=== PATIENT | male | born 1945 | race Caucasian/White ===

== ENCOUNTER 2016-09-24 12:18 | Inpatient (IN) | payer OTHER, MEDICARE ==
[~2016-09-24] VITALS: Ht 185.4 cm; Wt 168.1 kg
[2016-09-24] VITALS (7 sets, daily range): BP systolic 137–165; BP diastolic 51–75; PULSE 59–74; RESP 16–20; TEMP 97.9–99.2; O2SAT 95–97
[~2016-09-24 12:18] MED LIST: 1-ME1LIQ PO; ALAV10TA PO; ALLO100T PO; AMMO12CR10 TOP; APIX2.5 PO; ASPI81TA82 PO; ATOR80TA PO; B COTAB3 PO; BACI500O61 TOP; CHRO200T2 PO; ERGO50000 PO; FISH100020 PO; FURO1TAB93 PO; HYDR10TA23 PO; LIPO150C2 PO; METO25 PO; NOVOLOGP2 SQ; PROT40TA PO; SHOWER/TUB CHAIR LG; SUCR1 PO; TRAM50TA PO; WARF7.5 PO; [UNRECOGNIZED DRUG - CODE]
--- NOTE | 2016-09-24 12:33 | PD ---
HPI Chief Complaint: Skin Problem Time Seen by Provider: 12:32 Travel History International Travel<30 days: No Contact w/Intl Traveler<30days: No Traveled to known affect area: No History of Present Illness HPI 71-year-old male came to the emergency room with history of right leg redness, increasing swelling for past 1 week. He's been getting chills and fever. Patient is a known diabetic and is on an insulin pump. He has a diabetic wound that's healing poorly over his amputated great toe stump. The superintendent renting managing from [place] has been keeping an eye on it. Patient has been getting daily dressing changes at home. His is here with him and said that she's been trying to get him to come to the hospital for some time and finally today he agreed. Patient says at home his blood sugar today was 126. He has had infection go to that right knee away he has hardware that required to the replaced 3 times. The last one was in 2003. He didn't want that to happen and hence he is here today. In triage his vital signs were stable. Patient has history of DVT and did poorly on blood thinners including Xarelto and Eliquis and hence eventually he was taken off those medications and an IVC filter was inserted. This was in 2012. He is awake and answering questions appropriately currently. [facility] Past Medical History Narrative Medical List of his past medical, surgical, social and family history was reviewed from the nursing note. Hx Anticoagulant Therapy: Yes Arthritis: Yes Asthma: No Autoimmune Disease: No Anxiety: No Depression: No Heart Rhythm Problems: Yes Cancer: No Cardiovascular Problems: Yes (X3 STENTS) High Cholesterol: Yes Chest Pain: No Congestive Heart Failure: Yes COPD: No Cerebrovascular Accident: Yes Diabetes: Yes Diminished Hearing: No Deep Vein Thrombosis: Yes (04/2015) Endocrine: Yes Genitourinary: Yes Hypertension: Yes Immune Disorder: No Implanted Vascular Access Dvce: Yes Kidney Stones: Yes Musculoskeletal: Yes Neurologic: No Psychiatric: No Respiratory: Yes Radiation Therapy: Yes (FOR RING WORMS CHILD) Sleep Apnea: Yes Thyroid Disease: No Past Surgical History Abdominal Surgery: No Cardiac Surgery: Yes (STENTS X 3.) Ear Surgery: No Endocrine Surgery: No Eye Surgery: No Genitourinary Surgery: Yes (KIDNEY STONE REMOVED) Gynecologic Surgery: No Insulin Pump: Yes Joint Replacement: Yes (BILAT. KNEES) Oral Surgery: No Thoracic Surgery: No Other Surgery: Yes (KIDNEY STONE REMOVAL) Social History Alcohol Use: No Tobacco Use: No (QUIT 35 YEARS AGO) Substance Use: No Allergies-Medications (Allergen,Severity, Reaction): Coded Allergies: Carvedilol (Verified Allergy, Unknown, Hypotension, 09/24/16) Cipro (Verified Allergy, Unknown, Rash, 09/24/16) Uncoded Allergies: SURGICAL TAPE (Adverse Reaction, Intermediate, 04/23/15) BLISTERS Comments List of his allergies reviewed from the nursing note. Reported Meds & Prescriptions Reported Meds & Active Scripts Active Reported Omeprazole 40 Mg Cap 40 Mg PO DAILY Lisinopril 40 Mg Tab 40 Mg PO BID Furosemide 40 Mg Tab 40 Mg PO DAILY Fish Oil (Combined [place]-3 Fatty Acids) 1,000 Mg Cap D 1000 (Cholecalciferol) 1,000 Unit Chew Angela-Hex 2 (Chlorhexidine Gluconate) 2 % Mikaela Carvedilol 12.5 Mg Tab 12.5 Mg PO BID Biolle Gel Tears (Carboxymethylcellulose Sodium) 1 % Gel Iodoflex Topical (Cadexomer Iodine) 0.9% Pad 1 Pad TOPICAL DAILY Bacitracin Topical 500 Unit/Gm Oint 1 Applic TOPICAL DAILY Atorvastatin (Atorvastatin Calcium) 80 Mg Tab 80 Mg PO HS Amlodipine (Amlodipine Besylate) 10 Mg Tab 10 Mg PO DAILY Allopurinol 300 Mg Tab 300 Mg PO DAILY Ventolin Hfa 18 GM Inh (Albuterol Sulfate) 90 Mcg/Act Aer 1 Puff INH Q4H PRN Narrative Medication List of his home medications reviewed from the nursing note. Review of Systems Except as stated in HPI: all other systems reviewed are Neg Physical Exam Narrative GENERAL: Awake, alert, morbidly obese, mild distress SKIN: Warm and dry. Flushed. HEAD: Atraumatic. Normocephalic. EYES: Pupils equal and round. No scleral icterus. No injection or drainage. ENT: No nasal bleeding or discharge. Mucous membranes pink and moist. NECK: Trachea midline. No JVD. CARDIOVASCULAR: Regular rate and rhythm. No murmur appreciated. RESPIRATORY: No accessory muscle use. Clear to auscultation. Breath sounds equal bilaterally. GASTROINTESTINAL: Abdomen soft, non-tender, nondistended. Hepatic and splenic margins not palpable. MUSCULOSKELETAL: Right leg is swollen and warm with erythema coming from the dorsum of the foot all the way up to the mid leg. The leg is swollen and warm to touch. The foot with the amputated great toe did not look good over the wound area with there are 2 open ulcers. Skin is blanched. No foul-smelling drainage. No clubbing. No cyanosis. No edema. NEUROLOGICAL: Awake and alert. No obvious cranial nerve deficits. Motor grossly within normal limits. Normal speech. PSYCHIATRIC: Appropriate mood and affect; insight and judgment normal. Data Data Last Documented VS Vital Signs Date Time Temp Pulse Resp B/P Pulse Ox O2 Delivery O2 Flow Rate FiO2 09/24/16 14:18 74 16 146/73 97 Room Air 09/24/16 12:26 97.9 Orders Complete Blood Count With Diff (09/24/16 12:48) Comprehensive Metabolic Panel (09/24/16 12:48) Lactic Acid Sepsis Protocol (09/24/16 12:48) Urinalysis - C+S If Indicated (09/24/16 12:48) Blood Culture (09/24/16 12:48) Chest, Single Ap (09/24/16 12:48) Blood Glucose (09/24/16 12:48) Ecg Monitoring (09/24/16 12:48) Iv Access Insert/Monitor (09/24/16 12:48) Oximetry (09/24/16 12:48) Oxygen Administration (09/24/16 12:48) Piperacil-Tazo 4.5 Gm Premix (Zosyn 4.5 (09/24/16 12:48) Vancomycin Inj (Vancomycin Inj) (09/24/16 12:48) Sodium Chlor 0.9% 1000 Ml Inj (Ns 1000 M (09/24/16 12:48) Sodium Chlor 0.9% 1000 Ml Inj (Ns 1000 M (09/24/16 12:48) Sodium Chlor 0.9% 1000 Ml Inj (Ns 1000 M (09/24/16 12:48) Sodium Chlor 0.9% 1000 Ml Inj (Ns 1000 M (09/24/16 12:48) Foot, Complete (Mdg1uml) (09/24/16 ) Admit Order (Ed Use Only) (09/24/16 14:59) Labs Laboratory Tests Test 09/24/16 09/24/16 14:08 15:00 White Blood Count 9.0 TH/MM3 Red Blood Count 4.03 MIL/MM3 Hemoglobin 10.7 GM/DL Hematocrit 32.8 % Mean Corpuscular Volume 81.3 FL Mean Corpuscular Hemoglobin 26.5 PG Mean Corpuscular Hemoglobin 32.7 % Concent Red Cell Distribution Width 15.5 % Platelet Count 186 TH/MM3 Mean Platelet Volume 9.5 FL Neutrophils (%) (Auto) 69.4 % Lymphocytes (%) (Auto) 18.6 % Monocytes (%) (Auto) 8.9 % Eosinophils (%) (Auto) 2.9 % Basophils (%) (Auto) 0.2 % Neutrophils # (Auto) 6.2 TH/MM3 Lymphocytes # (Auto) 1.7 TH/MM3 Monocytes # (Auto) 0.8 TH/MM3 Eosinophils # (Auto) 0.3 TH/MM3 Basophils # (Auto) 0.0 TH/MM3 CBC Comment DIFF FINAL Differential Comment Sodium Level 141 MEQ/L Potassium Level 4.2 MEQ/L Chloride Level 107 MEQ/L Carbon Dioxide Level 23.5 MEQ/L Anion Gap 11 MEQ/L Blood Urea Nitrogen 61 MG/DL Creatinine 2.40 MG/DL Estimat Glomerular Filtration 27 ML/MIN Rate Random Glucose 253 MG/DL Lactic Acid Level 1.3 mmol/L Calcium Level 8.3 MG/DL Total Bilirubin 0.4 MG/DL Aspartate Amino Transf 159 U/L (AST/SGOT) Alanine Aminotransferase 246 U/L (ALT/SGPT) Alkaline Phosphatase 334 U/L Total Protein 7.1 GM/DL Albumin 2.4 GM/DL Urine Color YELLOW Urine Turbidity CL Urine pH 5.5 Urine Specific Holliday 1.017 Urine Protein 100 mg/dL Urine Glucose (UA) NEG mg/dL Urine Ketones NEG mg/dL Urine Occult Blood NEG Urine Nitrite NEG Urine Bilirubin NEG Urine Leukocyte Esterase NEG Urine RBC 0-3 /hpf Urine WBC 0-2 /hpf Urine Squamous Epithelial 0-5 /hpf Cells Urine Bacteria NONE /hpf Urine Hyaline Casts 0-2 /lpf Urine Fine Granular Casts 0-2 /lpf Microscopic Urinalysis Comment CATH-CULT NOT IND MDM Medical Decision Making Medical Screen Exam Complete: Yes Emergency Medical Condition: Yes Medical Record Reviewed: Yes Differential Diagnosis Osteomyelitis, cellulitis, DVT Narrative Course 1:23 PM awaiting for the blood test results. X-ray of the foot does not show any obvious osteomyelitis. 1:36 PM patient has an IVC filter and if there is a DVT he is safe from that standpoint. Awaiting for the blood test results. X-ray of the foot did not show any osteomyelitis. Patient cannot have an MRI since he has a defibrillator. It seems like he would require admission for IV antibiotics anyways. I have ordered IV Zosyn and vancomycin for him. 2:48 PM blood test results are back. CBC is within relatively acceptable limits. Liver functions are elevated and renal function is far worse than before. Patient is getting IV fluids as well. I have put a call out for the hospitalist and admitted and discussed the case. In my opinion patient should be admitted for more antibiotic and IV hydration and podiatry to be consulted. Procedures EKG Prior to Arrival: No Diagnosis Primary Impression: Cellulitis Qualified Code: L03.115 - Cellulitis of right lower extremity Additional Impressions: Diabetic foot Renal failure Admitting Information Admitting Physician Requests: Admit Ana Mcintyre MD Sep 24, 2016 12:33
[2016-09-24] MEDS ORDERED: PIPERACIL-TAZO 4.5 GM PREMIX 100 ML IV STA (12:48)
[2016-09-24] MEDS ORDERED: VANCOMYCIN INJ 1,000 MG in SODIUM CHLOR 0.9% 250 ML INJ 250 ML IV STA (12:48)
[2016-09-24] MEDS ORDERED: SODIUM CHLOR 0.9% 1000 ML INJ 1,000 ML IV ONE ×3 (12:48)
[2016-09-24] MEDS ORDERED: SODIUM CHLOR 0.9% 1000 ML INJ 900 ML IV ONE (12:48)
[2016-09-24] MEDS ORDERED: VENTAER INH (13:06)
[2016-09-24] MEDS ORDERED: FURO40TA PO (13:06)
[2016-09-24] MEDS ORDERED: [UNRECOGNIZED DRUG - CODE] (13:06)
[2016-09-24] MEDS ORDERED: ALLO300T2 PO (13:06)
[2016-09-24] MEDS ORDERED: LISI40TA PO (13:06)
[2016-09-24] MEDS ORDERED: FISH1000 (13:06)
[2016-09-24] MEDS ORDERED: BACI500O9 TOPICAL (13:06)
[2016-09-24] MEDS ORDERED: AMLO10TA2 PO (13:06)
[2016-09-24] MEDS ORDERED: CARV12.52 PO (13:06)
[2016-09-24] MEDS ORDERED: [UNRECOGNIZED DRUG - SUPPLY] TOPICAL (13:06)
[2016-09-24] MEDS ORDERED: ATOR1TAB18 PO (13:06)
[2016-09-24] MEDS ORDERED: D 10CHW (13:06)
[2016-09-24] MEDS ORDERED: [UNRECOGNIZED DRUG - CODE] (13:06)
[2016-09-24] MEDS ORDERED: OMEP40CA2 PO (13:06)
--- NOTE | 2016-09-24 13:10 | RADHPO ---
EXAM DATE/TIME: 09/24/2016 12:54 [facility] COMPARISON: CHEST SINGLE AP, May 09, 2015, 15:28. INDICATIONS : Cough and chills; possible foot infection. MEDICAL HISTORY : Hypertension. Diabetes mellitus type II. SURGICAL HISTORY : Stents. Deviated septum. ENCOUNTER: Initial ACUITY: 1 day PAIN SCORE: 0/10 LOCATION: Bilateral chest FINDINGS: A single view of the chest demonstrates the lungs to be symmetrically aerated without evidence of mas s, infiltrate or effusion. The cardiomediastinal contours are unremarkable. Osseous structures are intact. CONCLUSION: Normal examination. José Antonio Wooten MD on September 24, 2016 at 13:09 Board Certified Radiologist. This report was verified electronically.
--- NOTE | 2016-09-24 13:12 | RADHPO ---
EXAM DATE/TIME: 09/24/2016 12:59 [facility] COMPARISON: No previous studies available for comparison. INDICATIONS : Right foot infection. MEDICAL HISTORY : Diabetes mellitus type II. 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 ENCOUNTER: Initial ACUITY: 1 week PAIN SCORE: 6/10 LOCATION: Right foot. FINDINGS: Three view examination of the right foot demonstrates the patient is status post first digit amputati on at the level of the first MTP joint. Remaining bones appear intact. Areas of bone destruction are not seen. There is soft tissue swelling throughout the foot. There is spurring seen at the dorsal mid foot and at the medial proximal navicular bone.. Calcaneal spurs are seen at the plantar aponeurosis attachment site and the Achilles attachment sites. CONCLUSION: Chronic bony change as described above. There is soft tissue swelling of the foot. José Antonio Wooten MD on September 24, 2016 at 13:09 Board Certified Radiologist. This report was verified electronically.
[2016-09-24 14:27] LABS: AUTOMATED NEUTROPHIL # 6.2 TH/MM3 (1.8-7.7); BASOPHIL % 0.2 % (0.0-2.0); EOSINOPHIL # 0.3 TH/MM3 (0-0.4); EOSINOPHIL % 2.9 % (0.0-4.0); HEMATOCRIT 32.8 % (39.0-51.0); HEMO FLAGS DIFF FINAL; LYMPH % 18.6 % (9.0-44.0); LYMPHOCYTE # 1.7 TH/MM3 (1.0-4.8); MEAN CELL VOLUME 81.3 FL (80.0-100.0); MEAN CORPUSCULAR HEMOGLOBIN 26.5 PG (27.0-34.0); MEAN CORPUSCULAR HGB CONC 32.7 % (32.0-36.0); MONO % 8.9 % (0.0-8.0); NEUT % 69.4 % (16.0-70.0); PLATELET COUNT 186 TH/MM3 (150-450); RED BLOOD COUNT 4.03 MIL/MM3 (4.50-5.90); RED CELL DISTRIBUTION WIDTH 15.5 % (11.6-17.2)
[2016-09-24 14:35] LABS: CHLORIDE 107 MEQ/L (98-107); POTASSIUM 4.2 MEQ/L (3.5-5.1); SODIUM (NA) 141 MEQ/L (136-145)
[2016-09-24 14:39] LABS: ANION GAP 11 MEQ/L (5-15); BICARBONATE 23.5 MEQ/L (21.0-32.0); BLOOD UREA NITROGEN 61 MG/DL (7-18)
[2016-09-24 14:42] LABS: ALT (GPT) 246 U/L (12-78); AST (GOT) 159 U/L (15-37); GLOMERULAR FILTRATION RATE 27 ML/MIN (>89)
[2016-09-24 14:44] LABS: TOTAL BILIRUBIN ADULT 0.4 MG/DL (0.2-1.0)
[2016-09-24 14:45] LABS: ALKALINE PHOSPHATASE 334 U/L (45-117)
--- NOTE | 2016-09-24 15:01 | HHI.HP ---
HPI [facility] Primary [facility] Physician [facility] Admission Diagnosis Diagnoses: (1) Diabetic infection of right foot (2) Type 2 diabetes mellitus with right diabetic foot infection (3) Cellulitis (4) Acute renal failure superimposed on stage 3 chronic kidney disease Chief Complaint: right foot infection Travel History International Travel<30 Days: No Contact w/Intl Traveler <30 Da: No Traveled to Known Affected Are: No History of Present Illness 71 year-old male with history of diabetes type 2 insulin-dependent presented to the ED for evaluation of worsening RLE redness/erythema and increasing swelling over the past 7 days. patient is s/p amputated great right toe with poorly healed stump for which he is being followed by OR podiatry. He is not currently on any antibiotic and gets daily dressing change at home by his . Patient states he had subjective fever at home for which he took some Tylenol this AM. Currently denies any chest pain or shortness of breath, there is no GI bleed. Past Family Social History Past Medical History DVT diagnosed almost 1 month ago on xarelto CHF Coronary artery disease, with 3 stents placed in 2006 Hyperlipidemia Hypertension Diabetes mellitus on insulin pump Peptic ulcer disease Past Surgical History Surgical history Cardiac stents X3 to thin in 2006 Kidney stone removal Bilateral knee surgery Allergies: Coded Allergies: Carvedilol (Verified Allergy, Unknown, Hypotension, 09/24/16) Cipro (Verified Allergy, Unknown, Rash, 09/24/16) Uncoded Allergies: SURGICAL TAPE (Adverse Reaction, Intermediate, 04/23/15) BLISTERS Family History Family history positive for diabetes2 Social History He denies tobacco, alcohol or illicit drug intake Physical Exam Vital Signs Vital Signs Date Time Temp Pulse Resp B/P Pulse Ox O2 Delivery O2 Flow Rate FiO2 09/24/16 12:26 97.9 63 16 137/69 95 Physical Exam GENERAL: This is a well-nourished, well-developed patient, in no apparent distress. SKIN: No rashes, ecchymoses or lesions. Cool and dry. HEAD: Atraumatic. Normocephalic. No temporal or scalp tenderness. EYES: Pupils equal round and reactive. Extraocular motions intact. No scleral icterus. No injection or drainage. ENT: Nose without bleeding, purulent drainage or septal hematoma. Throat without erythema, tonsillar hypertrophy or exudate. Uvula midline. Airway patent. NECK: Trachea midline. No JVD or lymphadenopathy. Supple, nontender, no meningeal signs. CARDIOVASCULAR: Regular rate and rhythm without murmurs, gallops, or rubs. RESPIRATORY: Clear to auscultation. Breath sounds equal bilaterally. No wheezes , rales, or rhonchi. GASTROINTESTINAL: Abdomen soft, non-tender, nondistended. No hepato-splenomegaly , or palpable masses. No guarding. MUSCULOSKELETAL: Extremities without clubbing, cyanosis, or edema.Right leg is swollen and warm with erythema coming from the dorsum of the foot all the way up to the mid leg. The leg is swollen and warm to touch. The foot with the amputated great toe with some open ulcers NEUROLOGICAL: Awake and alert. Cranial nerves II through XII intact. Motor and sensory grossly within normal limits. Five out of 5 muscle strength in all muscle groups. Normal speech. Laboratory Laboratory Tests Test 09/24/16 14:08 White Blood Count 9.0 Red Blood Count 4.03 Hemoglobin 10.7 Hematocrit 32.8 Mean Corpuscular Volume 81.3 Mean Corpuscular Hemoglobin 26.5 Mean Corpuscular Hemoglobin 32.7 Concent Red Cell Distribution Width 15.5 Platelet Count 186 Mean Platelet Volume 9.5 Neutrophils (%) (Auto) 69.4 Lymphocytes (%) (Auto) 18.6 Monocytes (%) (Auto) 8.9 Eosinophils (%) (Auto) 2.9 Basophils (%) (Auto) 0.2 Neutrophils # (Auto) 6.2 Lymphocytes # (Auto) 1.7 Monocytes # (Auto) 0.8 Eosinophils # (Auto) 0.3 Basophils # (Auto) 0.0 CBC Comment DIFF FINAL Differential Comment Sodium Level 141 Potassium Level 4.2 Chloride Level 107 Carbon Dioxide Level 23.5 Anion Gap 11 Blood Urea Nitrogen 61 Creatinine 2.40 Estimat Glomerular Filtration 27 Rate Random Glucose 253 Lactic Acid Level 1.3 Calcium Level 8.3 Total Bilirubin 0.4 Aspartate Amino Transf 159 (AST/SGOT) Alanine Aminotransferase 246 (ALT/SGPT) Alkaline Phosphatase 334 Total Protein 7.1 Albumin 2.4 Date/Time Procedure Status Source Growth 09/24/16 14:18 Aerobic Blood Culture Received Blood Peripheral Pending 09/24/16 14:18 Anaerobic Blood Culture Received Blood Peripheral Pending Result Diagram: 09/24/16 1408 09/24/16 1408 Assessment and Plan Problem List: (1) Diabetic infection of right foot ICD Code: E11.69 Status: Acute (2) Type 2 diabetes mellitus with right diabetic foot infection ICD Code: E11.628 Status: Acute (3) Cellulitis ICD Code: L03.90 Status: Acute (4) Acute renal failure superimposed on stage 3 chronic kidney disease ICD Code: N17.9 Status: Acute Assessment and Plan 71-year-old man with Diabetic infection of right foot: s/p Zosyn and Vancomycin IV x 1 in ED; Continue with Vancomycin and start Rocephin IV daily 09/25/16 pending culture reports.Will consult Podiatry for assistance. Wound dressing per protocol. Consider ID consultation if no improvement Right foot cellulitis: Start Rocephin and Vancomycin IV Type 2 diabetes mellitus with right diabetic foot infection: Patient is on insulin pump with basal rate of about 4.5 units per hour. Will add low-dose insulin sliding scale for additional coverage. Treatment of DFI as above Acute kidney injury on CK D3: Start Gentle IVF hydration, monitor BUN and creatinine and avoid all nephrotoxic drugs. Hold SLOANE inhibitor Hypertension: Resume Norvasc and Coreg Prior history of right DVT: Status post IVC filter placement CAD: Resume Coreg Transaminitis: Check hepatitis profile monitor LFTs Code Status Full code Discussed Condition With Patient, , ED physician Physician Certification 2 Midnight Certification Type: Admission for Inpatient Services Order for Inpatient Services The services are ordered in accordance with Medicare regulations or non- Medicare payer requirements, as applicable. In the case of services not specified as inpatient-only, they are appropriately provided as inpatient services in accordance with the 2-midnight benchmark. Estimated LOS (days): 2 days is the estimated time the patient will need to remain in the hospital, assuming treatment plan goals are met and no additional complications. Post-Hospital Plan: Not yet determined Problem Qualifiers (1) Cellulitis: Qualified Code: L03.115 - Cellulitis of right lower extremity Deon Knapp MD Sep 24, 2016 15:01 specified as inpatient-only, they are appropriately provided as inpatient services in accordance with the 2-midnight benchmark. Estimated LOS (days): 2 days is the estimated time the patient will need to remain in the hospital, assuming treatment plan goals are met and no additional complications. Post-Hospital Plan: Not yet determined Problem Qualifiers (1) Cellulitis: Qualified Code: L03.115 - Cellulitis of right lower extremity Deon Knapp MD Sep 24, 2016 15:01
[2016-09-24 15:23] LABS: BLOOD, URINE NEG (NEG); GLUCOSE,URINE NEG (NEG); KETONE, URINE NEG (NEG); NITRITE,URINE NEG (NEG); PH, URINE 5.5 (5.0-8.5)
[2016-09-24] MEDS ORDERED: TEMAZEPAM 15 MG CAP PO PRN (15:30)
[2016-09-24] MEDS ORDERED: hydrALAZINE HCL 25 MG TAB PO PRN (15:30)
[2016-09-24] MEDS ORDERED: NALOXONE HCL 0.4 MG/ML AMP IV PRN (15:30)
[2016-09-24] MEDS ORDERED: DEXTROSE 50% IN WATER 50 ML VIAL(D50) IV PUSH PRN (15:30)
[2016-09-24] MEDS ORDERED: ONDANSETRON HCL 4 MG/2 ML VIAL IVP PRN (15:30)
[2016-09-24] MEDS ORDERED: ACETAMINOPHEN 325 MG TAB PO PRN ×2 (15:30)
[2016-09-24] MEDS ORDERED: GLUCAGON 1 MG/ML VIAL OTHER PRN (15:30)
[2016-09-24] MEDS ORDERED: DOCUSATE SODIUM 50 MG/SENNA 8.6 MG TAB PO PRN (15:30)
[2016-09-24 15:35] LABS: HYALINE CAST, URINE 0-2 /lpf (RARE); RBC, URINE 0-3 /hpf (0-3); SQUAMOUS EPITHELIAL CELL URINE 0-5 /hpf (0-5); URINE COLOR YELLOW (YELLW/STRAW); WBC, URINE 0-2 /hpf (0-5)
[2016-09-24 15:36] LABS: COMMENT (UR) CATH-CULT NOT IND; CULTURE IF INDICATED CATH CULTURE NOT IND
[2016-09-24] MEDS ORDERED: Vancomycin Consult Pharmacy 1 EA OTHER SCH (16:00)
[2016-09-24] MEDS: INSULIN ASPART SUPPLEMENTAL SCALE SQ SCH ×2 (16:00→21:00)
[2016-09-24] MEDS ORDERED: CADEXOMER IODINE 0.9% TOPICAL SCH (16:15)
[2016-09-24] MEDS: ACETAMINOPHEN/HYDROcodone 325 MG/5 MG TAB PO PRN ×2 (16:41→21:29)
[2016-09-24] MEDS: SODIUM CHLORIDE 0.9% FLUSH 5 ML FLUSH FLUSH SCH (21:26)
[2016-09-24] MEDS: SODIUM CHLOR 0.9% 1000 ML INJ 1,000 ML IV SCH (21:26)
[2016-09-24] MEDS: ATORVASTATIN 40 MG TAB PO SCH (21:28)
[2016-09-24] MEDS: CARVEDILOL 12.5 MG TAB PO SCH (21:29)
[2016-09-25] VITALS: BP 128/72; PULSE 76; RESP 18; TEMP 98.2; O2SAT 96
[2016-09-25] MEDS: SODIUM CHLOR 0.9% 1000 ML INJ 1,000 ML IV SCH ×2 (05:45→20:41)
[2016-09-25] MEDS: SODIUM CHLORIDE 0.9% FLUSH 5 ML FLUSH FLUSH PRN (05:45)
[2016-09-25] MEDS ORDERED: VANCOMYCIN INJ 1,800 MG in SODIUM CHLORID 0.9% 500 ML INJ 500 ML IV SCH (06:00)
[2016-09-25 06:32] LABS: AUTOMATED NEUTROPHIL # 4.4 TH/MM3 (1.8-7.7); BASOPHIL % 0.3 % (0.0-2.0); EOSINOPHIL # 0.3 TH/MM3 (0-0.4); EOSINOPHIL % 3.8 % (0.0-4.0); HEMATOCRIT 30.2 % (39.0-51.0); HEMO FLAGS DIFF FINAL; LYMPH % 26.8 % (9.0-44.0); LYMPHOCYTE # 1.9 TH/MM3 (1.0-4.8); MEAN CELL VOLUME 80.3 FL (80.0-100.0); MEAN CORPUSCULAR HEMOGLOBIN 25.6 PG (27.0-34.0); MEAN CORPUSCULAR HGB CONC 31.9 % (32.0-36.0); NEUT % 60.1 % (16.0-70.0); PLATELET COUNT 156 TH/MM3 (150-450); RED BLOOD COUNT 3.76 MIL/MM3 (4.50-5.90); RED CELL DISTRIBUTION WIDTH 15.2 % (11.6-17.2); WHITE BLOOD COUNT 7.2 TH/MM3 (4.0-11.0)
[2016-09-25] MEDS: INSULIN ASPART SUPPLEMENTAL SCALE SQ SCH ×4 (06:50→20:48)
[2016-09-25 07:02] LABS: ALKALINE PHOSPHATASE 304 U/L (45-117); ALT (GPT) 214 U/L (12-78); ANION GAP 10 MEQ/L (5-15); AST (GOT) 144 U/L (15-37); BICARBONATE 19.8 MEQ/L (21.0-32.0); BLOOD UREA NITROGEN 53 MG/DL (7-18); CHLORIDE 115 MEQ/L (98-107); GLOMERULAR FILTRATION RATE 31 ML/MIN (>89); POTASSIUM 4.3 MEQ/L (3.5-5.1); SODIUM (NA) 145 MEQ/L (136-145); TOTAL BILIRUBIN ADULT 0.4 MG/DL (0.2-1.0)
[2016-09-25 08:00] VITALS: BP 127/78; PULSE 71; RESP 18; TEMP 97.9; O2SAT 97
[2016-09-25] MEDS: CARVEDILOL 12.5 MG TAB PO SCH ×2 (08:22→20:44)
[2016-09-25] MEDS: FUROSEMIDE 40 MG TAB PO SCH (08:22)
[2016-09-25] MEDS: ACETAMINOPHEN/HYDROcodone 325 MG/5 MG TAB PO PRN ×3 (08:22→20:43)
[2016-09-25] MEDS: cefTRIAXone INJ 1,000 MG in SODIUM CHLORIDE 0.9% INJ 100 ML IV SCH (08:23)
[2016-09-25] MEDS: ALLOPURINOL 300 MG TAB PO SCH (08:23)
[2016-09-25] MEDS: SODIUM CHLORIDE 0.9% FLUSH 5 ML FLUSH FLUSH SCH ×2 (08:23→20:41)
--- NOTE | 2016-09-25 08:55 | HHI.PR ---
Subjective Remarks Follow-up Diabetic foot infection/cellulitis 09/25/16-patient seen and examined, currently afebrile, denies any right foot pressure and states the pain has improved since admission. No acute event overnight. Objective Vitals Vital Signs Date Time Temp Pulse Resp B/P Pulse Ox O2 Delivery O2 Flow Rate FiO2 09/25/16 08:00 97.9 71 18 127/78 97 09/25/16 00:00 98.2 76 18 128/72 96 09/24/16 20:00 99.2 70 18 141/69 97 09/24/16 17:41 18 09/24/16 17:15 98.0 72 20 165/75 95 09/24/16 16:21 71 16 149/71 97 Room Air 09/24/16 15:21 59 16 154/51 97 Room Air 09/24/16 14:18 74 16 146/73 97 Room Air 09/24/16 13:50 16 97 Room Air 09/24/16 13:50 97 Room Air 09/24/16 12:26 97.9 63 16 137/69 95 I/O 09/24/16 09/24/16 09/24/16 09/25/16 09/25/16 09/25/16 07:00 15:00 23:00 07:00 15:00 23:00 Intake Total 5197 ml 1164 ml Output Total 200 ml 650 ml Balance 4997 ml 514 ml Intake Oral 264 ml 480 ml IV Total 4933 ml 684 ml Output Urine Total 200 ml 650 ml # Bowel Movements 0 0 Result Diagram: 09/25/16 0600 09/25/16 0600 Imaging Last Impressions Chest X-Ray 09/24/16 1248 Signed Impressions: Service Date/Time: Saturday, September 24, 2016 12:54 - CONCLUSION: Normal examination. José Antonio Wooten MD Foot X-Ray 09/24/16 0000 Signed Impressions: Service Date/Time: Saturday, September 24, 2016 12:59 - CONCLUSION: Chronic bony change as described above. There is soft tissue swelling of the foot. José Antonio Wooten MD Objective Remarks GENERAL: NAD SKIN: Warm and dry. HEAD: Normocephalic. EYES: No scleral icterus. No injection or drainage. NECK: Supple, trachea midline. No JVD or lymphadenopathy. CARDIOVASCULAR: Regular rate and rhythm without murmurs, gallops, or rubs. RESPIRATORY: Breath sounds equal bilaterally. No accessory muscle use. GASTROINTESTINAL: Abdomen soft, non-tender, nondistended. MUSCULOSKELETAL: No cyanosis, or edema. BACK: Nontender without obvious deformity. No CVA tenderness. A/P Problem List: (1) Diabetic infection of right foot ICD Code: E11.69 Status: Acute (2) Type 2 diabetes mellitus with right diabetic foot infection ICD Code: E11.628 Status: Acute (3) Cellulitis ICD Code: L03.90 Status: Acute (4) Acute renal failure superimposed on stage 3 chronic kidney disease ICD Code: N17.9 Status: Acute Assessment and Plan 71-year-old man with Diabetic infection of right foot: s/p Zosyn and Vancomycin IV x 1 in ED; Continue with Vancomycin and Rocephin IV daily pending culture reports. Case discussed with podiatry this morning and there appears to be questionable Charcot foot . X-rays noted and review with finding of Chronic bony change as described above. There is soft tissue swelling of the foot. Wound dressing per protocol. Consider ID consultation if no improvement Right foot cellulitis: Continue Rocephin and Vancomycin IV Type 2 diabetes mellitus with right diabetic foot infection: Patient is on insulin pump with basal rate of about 4.5 units per hour. Continue low-dose insulin sliding scale for additional coverage. Treatment of DFI as above Acute kidney injury on CKD3: Improving with Gentle IVF hydration, monitor BUN and creatinine and avoid all nephrotoxic drugs. Hold SLOANE inhibitor Hypertension: Currently on Norvasc and Coreg Prior history of right DVT: Status post IVC filter placement CAD: On Coreg Transaminitis: Hepatitis profile pending Problem Qualifiers (1) Cellulitis: Qualified Code: L03.115 - Cellulitis of right lower extremity Deon Knapp MD Sep 25, 2016 08:55
[2016-09-25] MEDS ORDERED: VANCOMYCIN INJ 1,250 MG in SODIUM CHLOR 0.9% 250 ML INJ 250 ML IV SCH (09:00)
--- NOTE | 2016-09-25 09:39 | MB ---
cc: ANGELICA ALVAREZ DPM DATE OF CONSULTATION 09/25/2016 REASON FOR CONSULTATION Right foot infection ulceration. HISTORY OF PRESENT ILLNESS This is a 71-year-old male with a history of neuropathy and type 2 diabetes, end-stage renal disease who has a history of right hallux amputation. He is noted to have increased pain, swelling and redness of the right lower extremity over the past few days and presented to the hospital. He has been in the hospital for approximate one day and the redness and pain is improved. Currently the patient admits he is seen by the [facility]. PAST MEDICAL HISTORY 1. Hypertension 2. CAD 3. CHF 4. DVT on Xarelto 5. Diabetes on insulin pump 6. Peptic ulcer disease 7. History of bone infection right foot hallux. PAST SURGICAL HISTORY 1. As previously stated cardiac stents. 2. Kidney stone removal 3. Bilateral knee surgery with removal of implant secondary to infection and reimplantation of total knee. 4. Per chart, the patient has a defibrillator. ALLERGIES [facility] HISTORY Positive for diabetes. Denies habits. MEDICATIONS The patient is receivin. Ceftriaxone and vancomycin 2. Zosyn Please see the complete med list in chart. PHYSICAL EXAM VITAL SIGNS: Temperature 97.9, pulse rate 71, respiratory rate 18, blood pressure 127/78, he is sating 97% on room air. GENERAL: This is an alert and oriented obese male exhibiting nonlabored respirations. He is verbal and appropriate. EXTREMITIES: The left lower extremity is without any deficits other than decreased sensation. The right lower extremity is examined. There is noted be forefoot abduction, decreased arch height and a prominent talonavicular joint. There is swelling that goes up to the level of the patient's ankle with pitting edema. There appears to be a superficial ulceration of the dorsal aspect of the hallux or at least the stump of the hallux, but there is a previous amputation, minimal serous drainage is appreciated. There is noted to be a chronic contracture pes planus of the foot, but the foot is very warm and decreased sensation. It appears that this may be a Charcot type presentation. Pedal pulses are palpable. Sensation decreased below the knee. There is chronic venostasis type findings with hyperpigmentation of the skin of the medial calf. LABORATORY FINDINGS White blood cell 9 down to 7.2, hemoglobin/hematocrit 9 and 30, platelet count 156. Chem-7 sodium 145, potassium 4.3, chloride 115, CO2 19.8, BUN is 53, creatinine 2.1, random glucose is 93, AST 144, ALT 214, alkaline phosphatase 304. RADIOGRAPHIC FINDINGS OF THE FOOT Shows no bony destruction at the level of the first metatarsal head, however, absent hallux spurring noted of the dorsal foot, however no obvious fracture or dislocation appreciated. ASSESSMENT/PLAN Right lower extremity edema, cellulitis, possible early onset Charcot versus infected ulcer right hallux. At this point, the next best step is to rule out any obvious bone infection. ESR ordered, triple phase bone scan ordered. The patient may benefit from immobilization within a controlled ankle motion boot secondary to neuropathy and a possible early onset of Charcot. I discussed the patient with the medicine team, bone scan ordered. I will advise pending the bone scan. It appears the patient is improving. Continue current treatment. I will also order x-ray of the ankle to make sure there is no obvious signs of early Charcot or fracture of the ankle. CHEYANNE Esquivel/MARICEL /9:13 AM /9:27 AM
--- NOTE | 2016-09-25 10:03 | RADHPO ---
EXAM DATE/TIME: 09/25/2016 09:27 [facility] COMPARISON: FOOT RIGHT COMPLETE ([id number]), September 24, 2016, 12:59. INDICATIONS : Right ankle pain, redness and swelling. MEDICAL HISTORY : Renal disease, end stage. Diabetes mellitus type II. SURGICAL HISTORY : None. ENCOUNTER: Initial ACUITY: 2 weeks PAIN SCORE: 0/10 LOCATION: Right ankle FINDINGS: Three view exam was performed of the right ankle. The bony structures are in normal alignment. Ther e is cystic change in the anterior distal fibula seen on the lateral view. There some cystic change i n the anterior calcaneus and at the talar dome. No evidence of fracture is seen. There some hypertrop hic change at the distal dorsal talus and at the proximal navicular bone. There are calcaneal spurs a t the plantar aponeurosis and Achilles attachment sites. There is soft tissue swelling especially lat erally and anteriorly at the ankle. CONCLUSION: Scattered cystic and hypertrophic change at the hindfoot. There is soft tissue swelling. José Antonio Wooten MD on September 25, 2016 at 9:56 Board Certified Radiologist. This report was verified electronically.
[2016-09-25 12:00] VITALS: BP 115/65; PULSE 70; RESP 18; TEMP 98.7; O2SAT 96
[2016-09-25 16:00] VITALS: BP 136/74; PULSE 58; RESP 18; TEMP 97.9; O2SAT 97
[2016-09-25 20:00] VITALS: BP 146/75; PULSE 74; RESP 22; TEMP 96; O2SAT 96
[2016-09-25] MEDS: ATORVASTATIN 40 MG TAB PO SCH (20:42)
[2016-09-26] VITALS: BP 133/73; PULSE 76; RESP 20; TEMP 99; O2SAT 96
--- NOTE | 2016-09-26 02:14 | RADHPO ---
EXAM DATE/TIME: 09/25/2016 11:55 [facility] COMPARISON: FOOT RIGHT COMPLETE ([id number]), September 24, 2016, 12:59. PRIOR BONE SCANS: No correlative bone scan available for comparison. INDICATIONS : Right foot swelling and reddness with fever. DOSE: 32.2 mCi Tc99m MDP IV IMAGING: SPECT/CT imaging with fusion was performed. MEDICAL HISTORY : Diabetes mellitus type 2. Deep venous thrombosis. Hypertension. Stroke. Renal disease. Congestive hea rt failure. SURGICAL HISTORY : Coronary artery stent. 1st digit of right foot amputation. ENCOUNTER: Initial ACUITY: 1 week PAIN SCALE: 6/10 LOCATION: Right Foot. TECHNIQUE: Bone scan was performed in sagittal, axial and coronal planes. Attenuation correction was performed with computed tomography and both the attenuation correction and non-attenuation corrected data sets were reviewed. FINDINGS: There is diffusely increased blood flow in the right foot and ankle. There is markedly increased upta ke on the delayed images in the great toe metatarsal head. Focal bone erosion and adjacent bony scler osis is seen in this region. Constellation of findings are suggestive of osteomyelitis. The findings extend to the metatarsal neck and distal metatarsal shaft. Increased uptake identified at the tarsometatarsal joints likely represents neuropathic/diabetic oste oarthropathy. This probably increased uptake adjacent to the posterior subtalar joint and sinus Tarsi also indicating arthritic change correlating with arthritic change on CT images and likely tal[place] pablo impingement. Subfibular impingement also noted. CONCLUSION: 1. Findings suggesting osteomyelitis of the right great toe metatarsal head neck and distal shaft in the proper clinical setting. 2. Abnormality of the right tarsometatarsal joints and subtalar joint likely represent arthritic find ings/diabetic osteoarthropathy.. Similar but less prominent findings are also seen on the left. Rosalino Cornejo MD on September 26, 2016 at 2:01 Board Certified Radiologist. This report was verified electronically.
[2016-09-26 04:00] VITALS: BP 120/66; PULSE 70; RESP 20; TEMP 96.8; O2SAT 96
[2016-09-26] MEDS: VANCOMYCIN INJ 2,100 MG in SODIUM CHLORID 0.9% 500 ML INJ 500 ML IV SCH (05:43)
[2016-09-26] MEDS: ACETAMINOPHEN/HYDROcodone 325 MG/5 MG TAB PO PRN ×2 (05:43→21:40)
[2016-09-26] MEDS: SODIUM CHLORIDE 0.9% FLUSH 5 ML FLUSH FLUSH PRN (05:44)
[2016-09-26 06:56] LABS: CHLORIDE 114 MEQ/L (98-107); POTASSIUM 4.4 MEQ/L (3.5-5.1); SODIUM (NA) 144 MEQ/L (136-145)
[2016-09-26 06:59] LABS: ANION GAP 9 MEQ/L (5-15)
[2016-09-26 07:00] LABS: BLOOD UREA NITROGEN 49 MG/DL (7-18)
[2016-09-26] MEDS: INSULIN ASPART SUPPLEMENTAL SCALE SQ SCH ×4 (07:00→21:37)
[2016-09-26 07:02] LABS: ALT (GPT) 191 U/L (12-78)
[2016-09-26 07:03] LABS: AST (GOT) 108 U/L (15-37); GLOMERULAR FILTRATION RATE 31 ML/MIN (>89)
[2016-09-26 07:04] LABS: TOTAL BILIRUBIN ADULT 0.3 MG/DL (0.2-1.0)
[2016-09-26 07:05] LABS: ALKALINE PHOSPHATASE 344 U/L (45-117)
--- NOTE | 2016-09-26 07:52 | PD.POD ---
Subjective Pain score: 2 Remarks Right foot ankle improving Past Med/Surg/Social History Social History Smoking Status: Former Smoker Objective Vital Signs Vital Signs Date Time Temp Pulse Resp B/P Pulse Ox O2 Delivery O2 Flow Rate FiO2 09/26/16 04:00 96.8 70 20 120/66 96 09/26/16 00:00 99.0 76 20 133/73 96 09/25/16 20:00 96.0 74 22 146/75 96 09/25/16 16:00 97.9 58 18 136/74 97 09/25/16 15:34 18 09/25/16 12:00 98.7 70 18 115/65 96 09/25/16 08:00 97.9 71 18 127/78 97 Coded Allergies: Carvedilol (Verified Allergy, Unknown, Hypotension, 09/24/16) Cipro (Verified Allergy, Unknown, Rash, 09/24/16) Uncoded Allergies: SURGICAL TAPE (Adverse Reaction, Intermediate, 04/23/15) BLISTERS Medications and IVs Administered Medications Medications (Trade) Dose Ordered Sig/Loulou Route PRN Reason Start Time Stop Time Status Last Admin Dose Admin Sodium Chloride (NS 1000 ml Inj) 1,000 ml @ 70 mls/hr [id number] IV 09/24/16 15:28 09/25/16 20:41 IV Flush (NS Flush) 2 ml UNSCH PRN FLUSH FLUSH AFTER USING IV ACCESS 09/24/16 15:30 09/26/16 05:44 IV Flush (NS Flush) 2 ml BID FLUSH 09/24/16 21:00 09/25/16 20:41 Acetaminophen/ Hydrocodone Bitart 1 tab 1 tab Q4H PRN PO PAIN SCALE 3 TO 5 09/24/16 15:30 09/26/16 05:43 Ceftriaxone Sodium/Sodium Chloride (Rocephin Inj/NS Inj) 100 ml @ 200 mls/hr Q24H IV 09/25/16 09:00 09/25/16 08:23 Allopurinol (Zyloprim) 300 mg DAILY PO 09/25/16 09:00 09/25/16 08:23 Amlodipine Besylate (Norvasc) 10 mg DAILY PO 09/25/16 09:00 09/25/16 08:22 Atorvastatin Calcium (Lipitor) 80 mg HS PO 09/24/16 21:00 09/25/16 20:42 Carvedilol (Coreg) 12.5 mg BID PO 09/24/16 21:00 09/25/16 20:44 Furosemide 40 mg 40 mg DAILY PO 09/25/16 09:00 09/25/16 08:22 Vancomycin HCl/ Sodium Chloride (Vancomycin Inj/ NS 500 ml Inj) 521 ml @ 250 mls/hr Q24H IV 09/26/16 06:00 09/26/16 05:43 Other Results Last 72 hours Impressions Bone Scan Nuclear Medicine 09/25/16 0000 Signed Impressions: Service Date/Time: Sunday, September 25, 2016 11:55 - CONCLUSION: 1. Findings suggesting osteomyelitis of the right great toe metatarsal head neck and distal shaft in the proper clinical setting. 2. Abnormality of the right tarsometatarsal joints and subtalar joint likely represent arthritic findings/diabetic osteoarthropathy.. Similar but less prominent findings are also seen on the left. Rosalino Cornejo MD Ankle X-Ray 09/25/16 0000 Signed Impressions: Service Date/Time: Sunday, September 25, 2016 09:27 - CONCLUSION: Scattered cystic and hypertrophic change at the hindfoot. There is soft tissue swelling. José Antonio Wooten MD Chest X-Ray 09/24/16 1248 Signed Impressions: Service Date/Time: Saturday, September 24, 2016 12:54 - CONCLUSION: Normal examination. José Antonio Wooten MD Foot X-Ray 09/24/16 0000 Signed Impressions: Service Date/Time: Saturday, September 24, 2016 12:59 - CONCLUSION: Chronic bony change as described above. There is soft tissue swelling of the foot. José Antonio Wooten MD Laboratory Tests Test 09/24/16 09/25/16 14:08 06:00 White Blood Count 9.0 TH/MM3 7.2 TH/MM3 Red Blood Count 4.03 MIL/MM3 3.76 MIL/MM3 Hemoglobin 10.7 GM/DL 9.6 GM/DL Hematocrit 32.8 % 30.2 % Mean Corpuscular Volume 81.3 FL 80.3 FL Mean Corpuscular Hemoglobin 26.5 PG 25.6 PG Mean Corpuscular Hemoglobin 32.7 % 31.9 % Concent Red Cell Distribution Width 15.5 % 15.2 % Platelet Count 186 TH/MM3 156 TH/MM3 Mean Platelet Volume 9.5 FL 9.4 FL Neutrophils (%) (Auto) 69.4 % 60.1 % Lymphocytes (%) (Auto) 18.6 % 26.8 % Monocytes (%) (Auto) 8.9 % 9.0 % Eosinophils (%) (Auto) 2.9 % 3.8 % Basophils (%) (Auto) 0.2 % 0.3 % Neutrophils # (Auto) 6.2 TH/MM3 4.4 TH/MM3 Lymphocytes # (Auto) 1.7 TH/MM3 1.9 TH/MM3 Monocytes # (Auto) 0.8 TH/MM3 0.6 TH/MM3 Eosinophils # (Auto) 0.3 TH/MM3 0.3 TH/MM3 Basophils # (Auto) 0.0 TH/MM3 0.0 TH/MM3 CBC Comment DIFF FINAL DIFF FINAL Differential Comment Erythrocyte Sedimentation Rate 59 mm/hr Laboratory Tests Test 09/24/16 09/25/16 09/26/16 14:08 06:00 06:23 Sodium Level 141 MEQ/L 145 MEQ/L 144 MEQ/L Potassium Level 4.2 MEQ/L 4.3 MEQ/L 4.4 MEQ/L Chloride Level 107 MEQ/L 115 MEQ/L 114 MEQ/L Carbon Dioxide Level 23.5 MEQ/L 19.8 MEQ/L 21.0 MEQ/L Anion Gap 11 MEQ/L 10 MEQ/L 9 MEQ/L Blood Urea Nitrogen 61 MG/DL 53 MG/DL 49 MG/DL Creatinine 2.40 MG/DL 2.10 MG/DL 2.10 MG/DL Estimat Glomerular Filtration 27 ML/MIN 31 ML/MIN 31 ML/MIN Rate Random Glucose 253 MG/DL 93 MG/DL 147 MG/DL Lactic Acid Level 1.3 mmol/L Calcium Level 8.3 MG/DL 7.9 MG/DL 8.0 MG/DL Total Bilirubin 0.4 MG/DL 0.4 MG/DL 0.3 MG/DL Aspartate Amino Transf 159 U/L 144 U/L 108 U/L (AST/SGOT) Alanine Aminotransferase 246 U/L 214 U/L 191 U/L (ALT/SGPT) Alkaline Phosphatase 334 U/L 304 U/L 344 U/L Total Protein 7.1 GM/DL 6.1 GM/DL 6.3 GM/DL Albumin 2.4 GM/DL 2.0 GM/DL 1.9 GM/DL Microbiology Date/Time Procedure Status Source Growth 09/24/16 14:08 Aerobic Blood Culture - Preliminary Resulted Blood Peripheral NO GROWTH IN 1 DAY 09/24/16 14:08 Anaerobic Blood Culture - Preliminary Resulted Blood Peripheral NO GROWTH IN 1 DAY 09/24/16 14:18 Aerobic Blood Culture - Preliminary Resulted Blood Peripheral NO GROWTH IN 1 DAY 09/24/16 14:18 Anaerobic Blood Culture - Preliminary Resulted Blood Peripheral NO GROWTH IN 1 DAY Objective Remarks Right foot ankle swelling and redness with some decrease over all edema. decreased sensation below the ankle, pes planus with no crepitus or instability , right foot ulcer with serous type drainage does not probe, callous and mixed granular 3cm ulcer at hallux amputation site, good pulses BL. left foot without ulcer Assessment & Plan A/P Right foot ulcer, possible OM, charcot (early non destructive) In light of bone scan patient will need bn bx with possible met resection. Reviewed rather significant co-morbidities, reviewed with medicine, prefer cardiology to see before surgery. Pt is NPO for now in hopes for clearance for surgery today. Venancio Mason DPM Sep 26, 2016 07:52
[2016-09-26 08:00] VITALS: BP 142/77; PULSE 76; RESP 20; TEMP 98.6; O2SAT 93
--- NOTE | 2016-09-26 10:17 | HHI.PR ---
Subjective Remarks Patient seen and examined today with Dr. Santacruz. Patient resting carefully in bed. Denies any new complaints. Discussed case with Dr. Mason, he indicates that he would like to take the patient to surgery today, however he does have significant cardiovascular issues and would appreciate cardiac clearance prior to surgery. I did discuss with the patient's [employer] service technician Dr. Hendricks, who indicates that she cannot give cardiac clearance off-site. She recommended discharging the patient and she can clear him in her office. She did fax over her wrist recent medical records, most recent echocardiogram. Objective Vitals Vital Signs Date Time Temp Pulse Resp B/P Pulse Ox O2 Delivery O2 Flow Rate FiO2 09/26/16 08:00 98.6 76 20 142/77 93 09/26/16 04:00 96.8 70 20 120/66 96 09/26/16 00:00 99.0 76 20 133/73 96 09/25/16 20:00 96.0 74 22 146/75 96 09/25/16 16:00 97.9 58 18 136/74 97 09/25/16 15:34 18 09/25/16 12:00 98.7 70 18 115/65 96 I/O 09/25/16 09/25/16 09/25/16 09/26/16 09/26/16 09/26/16 07:00 15:00 23:00 07:00 15:00 23:00 Intake Total 1164 ml 1300 ml 1676 ml 716 ml Output Total 650 ml 750 ml 400 ml 225 ml Balance 514 ml 550 ml 1276 ml 491 ml Intake Oral 480 ml 1300 ml 340 ml 160 ml IV Total 684 ml 1336 ml 556 ml Output Urine Total 650 ml 750 ml 400 ml 225 ml # Voids 2 1 # Bowel Movements 0 0 0 0 Result Diagram: 09/25/16 0600 09/26/16 0623 Objective Remarks GENERAL: Well-developed, morbidly obese with BMI 47.0, in no acute distress. alert and orientated HEENT: Head is normocephalic without any lesions or masses noted. Facial features are symmetric. Eyes: Extraocular muscles are intact. Conjunctivae were clear. NECK: Supple without any masses. Trachea midline no deviation. No JVD, CARDIAC: Regular rhythm, regular rate. S1/S2 are heard. No murmurs gallops or rubs. LUNGS: Clear to auscultation bilaterally. No wheeze, rhonchi or rales. No use of accessory muscles on inspiration or expiration. ABDOMEN: Soft, nontender. Nondistended. Bowel sounds heard in all 4 quadrants. No organomegaly or masses. Negative rebound, negative guarding EXTREMITIES: +2 edema, pulses are equal bilaterally. No cyanosis or clubbing NEUROLOGY: Mood and affect appear appropriate. Cranial nerves II through XII grossly intact. Moving all extremities, speech is clear Urinary Catheter: No Vascular Central Line Catheter: No A/P Assessment and Plan Osteomyelitis of the right first metatarsal in a Diabetic patient: s/p Zosyn and Vancomycin IV x 1 in ED; Continue with Vancomycin and Rocephin IV daily. Three-phase bone scan was performed which does indicate osteomyelitis of the right distal metatarsal as well as bilateral abnormalities indicating possible underlying Charcot's. Case discussed with podiatry this morning, indicates plans to go for surgical intervention, however due to patient's cardiovascular history, patient will need cardiac clearance prior to surgical intervention. I did call the patient's [employer]mw service technician Dr. Hendricks, she does not come to [facility]. She states that she cannot give surgical clearance at this time and indicated that would have to have a bmw service technician from [place] give clearance. She did fax over patient's most recent records. Consulted on-call cardiology for clearance. Cardiology contacted me [phone] and indicated that patient is cleared for surgery. Right foot cellulitis: Continue Rocephin and Vancomycin IV Type 2 diabetes mellitus with right diabetic foot infection: Patient is on insulin pump with basal rate of about 4.5 units per hour. Continue low-dose insulin sliding scale for additional coverage. Acute kidney injury on CKD3: Improving with Gentle IVF hydration, monitor BUN and creatinine and avoid all nephrotoxic drugs. Hold SLOANE inhibitor Hypertension: Currently on Norvasc and Coreg Transaminitis: Unknown etiology, bile hepatitis panel was negative, continue to trend liver enzymes. DVT prevention: Prior history of right DVT: Status post IVC filter placement Written by Sabino Jenkins PA-C, acting as scribe for Dr. Santacruz on 09/26/16 at 1630. The documentation accurately reflects the work and decisions performed face-to- face by Dr. Santacruz on 09/26/16 at 1630. Sabino Jenkins Sep 26, 2016 10:17 Jorge Santacruz MD Sep 26, 2016 18:40
[2016-09-26] MEDS: SODIUM CHLOR 0.9% 1000 ML INJ 1,000 ML IV SCH ×2 (10:22→21:41)
[2016-09-26] MEDS: SODIUM CHLORIDE 0.9% FLUSH 5 ML FLUSH FLUSH SCH ×2 (11:34→21:34)
[2016-09-26] MEDS: ALLOPURINOL 300 MG TAB PO SCH (11:34)
[2016-09-26] MEDS: cefTRIAXone INJ 1,000 MG in SODIUM CHLORIDE 0.9% INJ 100 ML IV SCH (11:34)
[2016-09-26] MEDS: FUROSEMIDE 40 MG TAB PO SCH (11:34)
[2016-09-26] MEDS: CARVEDILOL 12.5 MG TAB PO SCH ×2 (11:34→21:39)
[2016-09-26 12:00] VITALS: BP 139/75; PULSE 64; RESP 20; TEMP 98.4; O2SAT 97
--- NOTE | 2016-09-26 12:57 | EC ---
Study Study Date:09/26/2016 STUDY CONCLUSIONS SUMMARY - Procedure narrative: Transthoracic echocardiography. Image quality was suboptimal. The study was technically limited due to poor acoustic window availability. Scanning was performed from the parasternal, apical, and subcostal acoustic windows. - Left ventricle: The cavity size was normal. Wall thickness was normal. Systolic function was normal. The estimated ejection fraction was in the range of 55% to 60%. Wall motion was normal; there were no regional wall motion abnormalities. - Tricuspid valve: Mild regurgitation. If LV function is below 40, please consider prescribing an ACEI or ARB or document rationale for non-use. PROCEDURE DATA STUDY STATUS: Elective. Procedure: Transthoracic echocardiography. Image quality was suboptimal. The study was technically limited due to poor acoustic window availability. Scanning was performed from the parasternal, apical, and subcostal acoustic windows. Study completion: The patient tolerated the procedure well. Transthoracic echocardiography. M-mode, complete 2D, complete spectral Doppler, and color Doppler. Height: Height: 73in. Weight: Weight: 355.3lb. Body mass index: BMI: 47kg/m^2. Body surface area: BSA: 2.75m^2. Patient status: Inpatient. CARDIAC ANATOMY LEFT VENTRICLE: The cavity size was normal. Wall thickness was normal. Systolic function was normal. The estimated ejection fraction was in the range of 55% to 60%. Wall motion was normal; there were no regional wall motion abnormalities. AORTIC VALVE: Trileaflet; normal thickness leaflets. Doppler: Transvalvular velocity was within the normal range. There was no stenosis. No regurgitation. AORTA: Aortic root: The aortic root was normal in size. MITRAL VALVE: Structurally normal valve. Doppler: Transvalvular velocity was within the normal range. There was no evidence for stenosis. No regurgitation. Valve area by pressure half-time: 4.15cm^2. Indexed valve area by pressure half-time: 1.51cm^2/m^2. Peak gradient: 5mm Hg (D). LEFT ATRIUM: The atrium was normal in size. RIGHT VENTRICLE: The cavity size was normal. Wall thickness was normal. PULMONIC VALVE: Doppler: Transvalvular velocity was within the normal range. There was no evidence for stenosis. No regurgitation. TRICUSPID VALVE: Structurally normal valve. Doppler: Transvalvular velocity was within the normal range. Mild regurgitation. Peak gradient: 25mm Hg (D). PULMONARY ARTERY: The main pulmonary artery was normal-sized. Systolic pressure was within the normal range. RIGHT ATRIUM: The atrium was normal in size. PERICARDIUM: There was no pericardial effusion. SYSTEMIC VEINS: Inferior vena cava: The vessel was normal in size. Patient weight: 355.3lb _Ejection fraction:_ 65-75% _Fractional shortening:_ 32% up to 5Kg 5-11.5Kg 11.6-22.9Kg 23-45Kg 45-57Kg Aortic Root 7-13 <17 13-22 17-27 17-27 LA diam 6-13 <23 24-38 33-47 37-40 RVID 10-17 7-15 7-15 7-18 8-17 LVIDd 12-22 <32 24-38 33-47 37-40 LVPW 2-4 3-6 5-7 6-8 7-8 IVS 2-4 3-6 5-7 6-8 7-8 BASIC MEASUREMENTS ADULT NORMAL Left ventricle LV internal dimension, ED, chordal 51.6 mm 43-52 level, PLAX LV internal dimension, ES, chordal 36.5 mm 23-38 level, PLAX Fractional shortening, chordal level, *29 % >29 PLAX LV posterior wall thickness, ED 12.8 mm IVS/LVPW ratio, ED 0.96 <1.3 Ventricular septum Septal thickness, ED 12.3 mm Aortic valve Leaflet separation 22 mm 15-26 Left atrium Anterior-posterior dimension 36 mm Anterior-posterior dimension index 1.31 cm/m^2 <2.2 BASIC MEASUREMENTS ADULT NORMAL Aortic valve Leaflet separation 22 mm 15-26 Aorta Root diameter, ED *9 mm 20-37 DOPPLER MEASUREMENTS ADULT NORMAL Aortic valve Peak velocity, S 134 cm/s Mitral valve Peak E-wave velocity 107 cm/s Peak A-wave velocity 81.4 cm/s Pressure half-time 53 ms Peak gradient, D 5 mm Hg Peak E/A ratio 1.3 Valve area, pressure half-time 4.15 cm^2 Valve area index, pressure half-time 1.51 cm^2/m^2 Tricuspid valve Peak gradient, D 25 mm Hg Maximal inflow velocity 250 cm/s Systemic veins Estimated CVP 10 mm Hg Pulmonic valve Peak velocity, S 99.1 cm/s LEGEND: Mean values are shown as u=mean value. Asterisk (*) tello values outside specified normal range. Prepared and signed by Bk Escudero [id number]
[2016-09-26 16:00] VITALS: BP 139/75; PULSE 64; RESP 20; TEMP 98.4; O2SAT 97
[2016-09-26] MEDS: CEFEPIME INJ 2,000 MG in SODIUM CHLORIDE 0.9% INJ 100 ML IV SCH (17:47)
[2016-09-26 20:00] VITALS: BP_SYST 140; BP_SYST 155; BP_DIAS 76; BP_DIAS 86; PULSE 56; PULSE 70; RESP 20; TEMP 95; TEMP 96.5; O2SAT 97; O2SAT 98
--- NOTE | 2016-09-26 21:14 | PD.CONS ---
HPI Consult Requested By Mr. Jenkins Reason for Consult Pre op evaluation. Primary Care Physician Mena Mars History of Present Illness 71 year-old male with history of diabetes type 2 insulin-dependent, DVT, GIB, CAD, presented to the ED for evaluation of worsening RLE redness/ erythema and increasing swelling over the past 7 days. patient is s/p amputated great right toe with poorly healed stump for which he is being followed by [place] [facility]. He is not currently on any antibiotic and gets daily dressing change at home by his . Patient states he had subjective fever at home, he was admitted for osteomyelitis of right toe, requiring surgical intervention. Review of Systems Consitutional: DENIES: Fatigue, Fever, Chills, Weight gain, Weight loss Eyes: DENIES: Amaurosis Fugax, Change in vision HEENT: DENIES: Lightheadedness, Change in hearing Respiratory: DENIES: See HPI, Cough, Snoring, Shortness of breath, Wheezing, Sputum production Cardiovascular: DENIES: See HPI, Chest pain, Palpitations, Syncope, Tachycardia Gastrointestinal: DENIES: Nausea, Vomiting, Change in bowel habits, Reflux, Bloody stools, Melena Genitourinary: DENIES: Urinary incontinence, Difficulty voiding Integumentary: DENIES: Rash Neurologic: DENIES: Tingling or numbness, Memory problems, Poor Balance, Stroke symptoms Musculoskeletal: DENIES: Joint pain, Muscle pain, Limited range of motion, Back pain Psychiatric: DENIES: Anxiety, Depression, Sleep disturbances Hematologic: DENIES: Bruising tendencies, Bleeding tendencies Endocrine: DENIES: Weight gain, Weight loss, Thyroid disease Past Family Social History Allergies: Coded Allergies: Carvedilol (Verified Allergy, Unknown, Hypotension, 09/24/16) Cipro (Verified Allergy, Unknown, Rash, 09/24/16) Uncoded Allergies: SURGICAL TAPE (Adverse Reaction, Intermediate, 04/23/15) BLISTERS Past Medical History DVT diagnosed almost 1 month ago on xarelto CHF Coronary artery disease, with 3 stents placed in 2006 Hyperlipidemia Hypertension Diabetes mellitus on insulin pump Peptic ulcer disease Past Surgical History Cardiac stents X3 to thin in 2006 Kidney stone removal Bilateral knee surgery Reported Medications Reported Meds & Active Scripts Active Reported Omeprazole 40 Mg Cap 40 Mg PO DAILY Lisinopril 40 Mg Tab 40 Mg PO BID Furosemide 40 Mg Tab 40 Mg PO DAILY Fish Oil (Severance-3 Fatty Acids) 1,000 Mg Cap D 1000 (Cholecalciferol) 1,000 Unit Chew Angela-Hex 2 (Chlorhexidine Gluconate) 2 % Mikaela Carvedilol 12.5 Mg Tab 12.5 Mg PO BID Biolle Gel Tears (Carboxymethylcellulose Sodium) 1 % Gel Iodoflex Topical (Cadexomer Iodine) 0.9% Pad 1 Pad TOPICAL DAILY Bacitracin Topical 500 Unit/Gm Oint 1 Applic TOPICAL DAILY Atorvastatin (Atorvastatin Calcium) 80 Mg Tab 80 Mg PO HS Amlodipine (Amlodipine Besylate) 10 Mg Tab 10 Mg PO DAILY Allopurinol 300 Mg Tab 300 Mg PO DAILY Ventolin Hfa 18 GM Inh (Albuterol Sulfate) 90 Mcg/Act Aer 1 Puff INH Q4H PRN Active Ordered Medications Current Medications Medications (Trade) Dose Ordered Sig/Loulou Route Start Time Stop Time Status Last Admin (NS 1000 ml Inj) 1,000 ml @ 70 mls/hr [id number] IV 09/24/16 15:28 09/25/16 20:41 (NS Flush) 2 ml UNSCH PRN FLUSH 09/24/16 15:30 09/26/16 05:44 (NS Flush) 2 ml BID FLUSH 09/24/16 21:00 09/26/16 11:34 (Tylenol) 650 mg Q4H PRN PO 09/24/16 15:30 (Zofran Inj) 4 mg Q6H PRN IVP 09/24/16 15:30 (Restoril) 15 mg HS PRN PO 09/24/16 15:30 (Tylenol) 650 mg Q6H PRN PO 09/24/16 15:30 ([place] 5-325 Mg) 1 tab Q4H PRN PO 09/24/16 15:30 09/26/16 05:43 (Narcan Inj) 0.4 mg UNSCH PRN IV 09/24/16 15:30 (D50w (Vial) Inj) 25 ml UNSCH PRN IV PUSH 09/24/16 15:30 (Glucagon Inj) 1 mg UNSCH PRN OTHER 09/24/16 15:30 (Apresoline) 25 mg Q8HR PRN PO 09/24/16 15:30 Senna/Docusate Sodium 2 tab 2 tab BID PRN PO 09/24/16 15:30 (Vancomycin Consult Pharmacy) 0 ml @ 0 mls/hr UNSCH OTHER 09/24/16 16:00 (Zyloprim) 300 mg DAILY PO 09/25/16 09:00 09/26/16 11:34 (Norvasc) 10 mg DAILY PO 09/25/16 09:00 09/26/16 11:34 (Lipitor) 80 mg HS PO 09/24/16 21:00 09/25/16 20:42 (Coreg) 12.5 mg BID PO 09/24/16 21:00 09/26/16 11:34 (Lasix) 40 mg DAILY PO 09/25/16 09:00 09/26/16 11:34 Patient Own Medication PT OWN MED:IODOFLEX 0.9% PAD DAILY TOPICAL 09/24/16 16:15 Hold Miscellaneous Information SPECIFIC LAB TO BE DRAWN:VANCOMY... ONCE ONCE XX 09/28/16 05:45 09/28/16 05:46 Vancomycin HCl 2100 mg/Sodium Chloride 521 ml @ 250 mls/hr Q24H IV 09/26/16 06:00 09/26/16 05:43 (Maxipime Inj/NS Inj) 100 ml @ 200 mls/hr Q12H IV 09/26/16 17:00 09/26/16 17:47 Family History Family history positive for diabetes2 Social History He denies tobacco, alcohol or illicit drug intake Physical Exam Vital Signs Vital Signs Date Time Temp Pulse Resp B/P Pulse Ox O2 Delivery O2 Flow Rate FiO2 09/26/16 16:00 98.4 64 20 139/75 97 09/26/16 12:00 98.4 64 20 139/75 97 09/26/16 08:00 98.6 76 20 142/77 93 09/26/16 04:00 96.8 70 20 120/66 96 09/26/16 00:00 99.0 76 20 133/73 96 Physical Exam GENERAL: This is a well-nourished, well-developed patient, in no apparent distress. SKIN: No rashes, ecchymoses or lesions. Cool and dry. HEAD: Atraumatic. Normocephalic. No temporal or scalp tenderness. EYES: Pupils equal round and reactive. Extraocular motions intact. No scleral icterus. No injection or drainage. ENT: Nose without bleeding, purulent drainage or septal hematoma. Throat without erythema, tonsillar hypertrophy or exudate. Uvula midline. Airway patent. NECK: Trachea midline. No JVD or lymphadenopathy. Supple, nontender, no meningeal signs. CARDIOVASCULAR: Regular rate and rhythm without murmurs, gallops, or rubs. RESPIRATORY: Clear to auscultation. Breath sounds equal bilaterally. No wheezes , rales, or rhonchi. GASTROINTESTINAL: Abdomen soft, non-tender, nondistended. No hepato-splenomegaly , or palpable masses. No guarding. MUSCULOSKELETAL: Extremities without clubbing, cyanosis, or edema.Right leg is swollen and warm with erythema coming from the dorsum of the foot all the way up to the mid leg. The leg is swollen and warm to touch. The foot with the amputated great toe with some open ulcers NEUROLOGICAL: Awake and alert. Cranial nerves II through XII intact. Motor and sensory grossly within normal limits. Five out of 5 muscle strength in all muscle groups. Normal speech. Laboratory Laboratory Tests Test 09/26/16 06:23 Sodium Level 144 Potassium Level 4.4 Chloride Level 114 Carbon Dioxide Level 21.0 Anion Gap 9 Blood Urea Nitrogen 49 Creatinine 2.10 Estimat Glomerular Filtration 31 Rate Random Glucose 147 Calcium Level 8.0 Total Bilirubin 0.3 Aspartate Amino Transf 108 (AST/SGOT) Alanine Aminotransferase 191 (ALT/SGPT) Alkaline Phosphatase 344 Total Protein 6.3 Albumin 1.9 Date/Time Procedure Status Source Growth 09/24/16 14:18 Aerobic Blood Culture - Preliminary Resulted Blood Peripheral NO GROWTH IN 2 DAYS 09/24/16 14:18 Anaerobic Blood Culture - Preliminary Resulted Blood Peripheral NO GROWTH IN 2 DAYS Result Diagram: 09/25/16 0600 09/26/16 0623 Imaging osteomyelitis of the right distal metatarsal Assessment and Plan Problem List: (1) Diabetic infection of right foot (2) History of coronary artery stent placement (3) CKD (chronic kidney disease) stage 3, GFR 30-59 ml/min (4) CAD (coronary artery disease) (5) Obstructive sleep apnea (6) Hyperlipidemia Assessment and Plan Ok to proceed right foot surgery from cardiology standpoint. Low risk of CV complication. monitor and storage bin tender, monitor for arrhythmia Continue current medication s for his HTN, CAD. Wing Virgen Hendricks MD Sep 26, 2016 21:14
[2016-09-26] MEDS: ATORVASTATIN 40 MG TAB PO SCH (21:39)
[2016-09-27] VITALS: BP 140/76; PULSE 56; RESP 20; TEMP 95.5; O2SAT 97
[2016-09-27 04:00] VITALS: BP 137/81; PULSE 56; RESP 18; TEMP 96.4; O2SAT 96
[2016-09-27] MEDS: SODIUM CHLORIDE 0.9% FLUSH 5 ML FLUSH FLUSH PRN (05:22)
[2016-09-27] MEDS: CEFEPIME INJ 2,000 MG in SODIUM CHLORIDE 0.9% INJ 100 ML IV SCH ×2 (05:22→15:55)
[2016-09-27] MEDS: VANCOMYCIN INJ 2,100 MG in SODIUM CHLORID 0.9% 500 ML INJ 500 ML IV SCH (06:24)
[2016-09-27] MEDS: INSULIN ASPART SUPPLEMENTAL SCALE SQ SCH ×4 (07:00→21:27)
[2016-09-27 08:09] VITALS: BP 155/83; PULSE 69; RESP 18; TEMP 96.6; O2SAT 96
[2016-09-27] MEDS ORDERED: ONDANSETRON HCL 4 MG/2 ML VIAL IV PUSH ONE (08:23)
[2016-09-27] MEDS ORDERED: PROPOFOL 200 MG/20 ML AMP IV ONE (08:23)
[2016-09-27] MEDS: FUROSEMIDE 40 MG TAB PO SCH (08:58)
[2016-09-27] MEDS: CARVEDILOL 12.5 MG TAB PO SCH ×2 (08:58→21:22)
[2016-09-27] MEDS: SODIUM CHLORIDE 0.9% FLUSH 5 ML FLUSH FLUSH SCH ×2 (08:58→21:00)
[2016-09-27] MEDS: ALLOPURINOL 300 MG TAB PO SCH (08:58)
[2016-09-27] MEDS ORDERED: DEXAMETHASONE SOD PHOS 4 MG/ML VIAL ONE (12:09)
[2016-09-27] MEDS ORDERED: MIDAZOLAM HCL 2 MG/2 ML VIAL ONE (12:09)
[2016-09-27] MEDS ORDERED: FAMOTIDINE 20 MG/2 ML VIAL ONE (12:09)
[2016-09-27] MEDS ORDERED: MIDAZOLAM HCL 2 MG/2 ML VIAL IVP ONE (12:14)
[2016-09-27] MEDS ORDERED: FAMOTIDINE 20 MG/2 ML VIAL IV PUSH ONE (12:16)
[2016-09-27] MEDS ORDERED: DEXAMETHASONE SOD PHOS 4 MG/ML VIAL IV PUSH ONE (12:17)
[2016-09-27] MEDS ORDERED: NEOMYCIN/POLYMYXIN 1 ML G.U. IRRIGANT XX ONE (12:44)
--- NOTE | 2016-09-27 13:49 | HHI.PR ---
Immediate Post Op Note Procedure Date: Sep 27, 2016 Pre Op Diagnosis: Right foot 1st metatarsal om, deep foot abscess Post Op Diagnosis: same Surgeon: Venancio Quintanilla Plasterer Spray Gun(s): scrub Procedure: Right foot 1metatarsal resection, incision drainage deep right foot Findings: Deep infection of forefoot Complications: none Specimen(s) removed: bn for path, and soft tissue and bone for micro Estimated blood loss: less 100mL Anesthesia: General Drains: Other Other Tourniquet time (min at mmHg) [place] around the right ankle- approx 30 min Patient to: Other Patient Condition: Fair Implant/Devices: SEE IMPLANT LOG (if applicable) Date/Time of Procedure: SEE SURGICAL CARE RECORD Venancio Quintanilla DPM Sep 27, 2016 13:48
[2016-09-27] MEDS: SODIUM CHLOR 0.9% 1000 ML INJ 1,000 ML IV SCH (14:58)
[2016-09-27] MEDS ORDERED: DO NOT ADM ANY ANTICOAGULANT DRUGS XX PRN (15:00)
--- NOTE | 2016-09-27 15:39 | HHI.PR ---
Subjective Remarks Patient seen and examined today with Dr. Santacruz. Patient just Back from having surgical intervention. Did discuss with Dr. Mason earlier that patient did have a significant fluid collection running along the bone. Patient states that he is thirsty would like to eat. Objective Vitals Vital Signs Date Time Temp Pulse Resp B/P Pulse Ox O2 Delivery O2 Flow Rate FiO2 09/27/16 14:38 97.8 63 15 142/75 97 Room Air 09/27/16 14:30 97.8 63 15 142/75 97 Room Air 09/27/16 14:15 60 16 136/64 94 Nasal Cannula 2 09/27/16 14:00 60 16 137/73 97 Nasal Cannula 2 09/27/16 13:50 97.7 60 16 143/74 99 Face Tent 09/27/16 10:15 97.9 68 20 125/70 97 09/27/16 08:09 96.6 69 18 155/83 96 09/27/16 04:00 96.4 56 18 137/81 96 09/27/16 00:00 95.5 56 20 140/76 97 09/26/16 20:00 96.5 70 20 155/86 98 09/26/16 16:00 98.4 64 20 139/75 97 I/O 09/26/16 09/26/16 09/26/16 09/27/16 09/27/16 09/27/16 07:00 15:00 23:00 07:00 15:00 23:00 Intake Total 716 ml 1400 ml 742 ml 1146 ml 950 ml Output Total 225 ml 875 ml 800 ml 100 ml Balance 491 ml 525 ml 742 ml 346 ml 850 ml Intake Oral 160 ml 1400 ml 480 ml IV Total 556 ml 742 ml 666 ml 50 ml Other 900 ml Output Urine Total 225 ml 875 ml 800 ml Estimated Blood Loss 100 ml # Voids 1 # Bowel Movements 0 0 1 Result Diagram: 09/25/16 0600 09/26/16 0623 Objective Remarks GENERAL: Well-developed, morbidly obese with BMI 47.0, in no acute distress. alert and orientated HEENT: Head is normocephalic without any lesions or masses noted. Facial features are symmetric. Eyes: Extraocular muscles are intact. Conjunctivae were clear. NECK: Supple without any masses. Trachea midline no deviation. No JVD, CARDIAC: Regular rhythm, regular rate. S1/S2 are heard. No murmurs gallops or rubs. LUNGS: Clear to auscultation bilaterally. No wheeze, rhonchi or rales. No use of accessory muscles on inspiration or expiration. ABDOMEN: Soft, nontender. Nondistended. Bowel sounds heard in all 4 quadrants. No organomegaly or masses. Negative rebound, negative guarding EXTREMITIES: No edema, pulses are equal bilaterally. No cyanosis or clubbing. Bandage noted on right foot NEUROLOGY: Mood and affect appear appropriate. Cranial nerves II through XII grossly intact. Moving all extremities, speech is clear Urinary Catheter: No Vascular Central Line Catheter: No A/P Assessment and Plan Osteomyelitis of the right first metatarsal in a Diabetic patient: s/p Zosyn and Vancomycin IV x 1 in ED; Continue with Vancomycin and Rocephin IV daily. Three-phase bone scan was performed which does indicate osteomyelitis of the right distal metatarsal as well as bilateral abnormalities indicating possible underlying Charcot's. Case discussed with podiatry this morning, indicates plans to go for surgical intervention, however due to patient's cardiovascular history, patient will need cardiac clearance prior to surgical intervention. I did call the patient's rod filler Dr. Hendricks, she does not come to [facility]. She states that she cannot give surgical clearance at this time and indicated that would have to have a rod filler from [place] give clearance. She did fax over patient's most recent records. Consulted on-call cardiology for clearance. Cardiology contacted me [phone] and indicated that patient is cleared for surgery. Surgery was performed and patient did have a tracking abscess along the metatarsal. Await cultures for appropriate antibiotics. Discussed with Dr. Mason and infectious disease. Plan to consult infectious disease on Friday for antibiotic recommendations Right foot cellulitis: Continue Rocephin and Vancomycin IV Type 2 diabetes mellitus with right diabetic foot infection: Patient is on insulin pump with basal rate of about 4.5 units per hour. Continue low-dose insulin sliding scale for additional coverage. Acute kidney injury on CKD3: Improving with Gentle IVF hydration, monitor BUN and creatinine and avoid all nephrotoxic drugs. Hold SLOANE inhibitor Hypertension: Currently on Norvasc and Coreg Transaminitis: Unknown etiology, bile hepatitis panel was negative, continue to trend liver enzymes. DVT prevention: Prior history of right DVT: Status post IVC filter placement Written by Sabino Jenkins PA-C, acting as scribe for Dr. Santacruz on 09/27/16 at 1535. The documentation accurately reflects the work and decisions performed face-to- face by Dr. Santacruz on 09/27/16 at 1535. Sabino Jenkins Sep 27, 2016 15:39 Jorge Santacruz MD Sep 27, 2016 18:23
--- NOTE | 2016-09-27 15:50 | EKG ---
Date Performed: 09/27/2016 Time Performed: 04:28:18 PTAGE: 71 years EKG: Sinus bradycardia with sinus arrhythmia with borderline 1st degree A-V block. Septal T wave changes are nonspecific Borderline ECG PREVIOUS TRACING 05/09/2015 @ 14.27.36 Compared to prior tracing no significant change DOCTOR: Analia Nielson Interpretating Date/Time 09/27/2016 15:48:44
[2016-09-27 16:01] LABS: AMYLASE 23 U/L (25-115)
--- NOTE | 2016-09-27 16:09 | RADHPO ---
EXAM DATE/TIME: 09/27/2016 15:18 [place] COMPARISON: No previous studies available for comparison. INDICATIONS : Increased liver function tests. MEDICAL HISTORY : Hypercholesterolemia. Congestive heart failure. Diabetic. DVT. CVA. Kidney stones. SURGICAL HISTORY : Amputated great toe. Cardiac stents. Bilateral knee replacement. Kidney stone removal. ENCOUNTER: Initial ACUITY: 1 day PAIN SCORE: 0/10 LOCATION: Bilateral upper quadrant MEASUREMENTS: LIVER: 20.4 cm length COMMON DUCT: 7 mm RIGHT KIDNEY: 13.3 x 6.3 x 6.3 cm SPLEEN: 14.9 cm length FINDINGS: LIVER: The liver has mild lobulation of the contour. Diffuse heterogeneity observed. It is somewhat echogeni c. No discrete mass. No ductal dilatation. Hepatopedal flow within the portal vein. COMMON DUCT: No intraluminal mass or stone visualized. GALLBLADDER: The gallbladder is not well distended. It is largely decompressed. There is the suggestion of wall th ickening but this is exaggerated by the state of decompression. Echogenic non-shadowing material cons istent with sludge is observed. PANCREAS: The visualized portions are within normal limits. RIGHT KIDNEY: No hydronephrosis, stone or mass. SPLEEN: The spleen is mildly enlarged measuring 14.9 cm. No mass. CONCLUSION: 1. Sonographic findings consistent with cirrhosis. Hepatopedal flow within the portal vein. 2. Splenomegaly. 3. Gallbladder sludge. The gallbladder wall is poorly evaluated due to the decompressed nature of the gallbladder. Adam Wright Jr., MD on September 27, 2016 at 16:03 Board Certified Radiologist. This report was verified electronically.
[2016-09-27 16:12] VITALS: BP 158/86; PULSE 69; RESP 18; TEMP 96; O2SAT 93
[2016-09-27] MEDS: ACETAMINOPHEN/HYDROcodone 325 MG/5 MG TAB PO PRN (18:06)
[2016-09-27 20:27] VITALS: BP 155/79; PULSE 77; RESP 22; TEMP 98.1; O2SAT 94
[2016-09-27] MEDS: ATORVASTATIN 40 MG TAB PO SCH (21:22)
--- NOTE | 2016-09-27 21:59 | PD.CONS ---
HPI History of Present Illness This is a 71 year old male with known poorly controlled diabetes who presents with right lower extremity cellulitis is found to have elevated liver function test looking back at his labs from 2 years ago they were normal but the patient [facility] me [facility] function tests in the past but he does not recall what they told him this may be the patient is a practicing [employer] and does not drink or smoke or use drugs the patient tells me his foot became infected about a week or 10 days ago an ultrasound was done today and this reveals he has cirrhosis with gallbladder sludge the patient is also noted to have acute kidney injury and he is mildly anemic the patient denies any abdominal pain denies any nausea vomiting denies any diarrhea or constipation melena or hematochezia hematemesis coffee-ground emesis he has been dieting in order to lose some weight gain better control over his diabetes PFSH Past Medical History DVT diagnosed almost 1 month ago on xarelto CHF Coronary artery disease, with 3 stents placed in 2006 Hyperlipidemia Hypertension Diabetes mellitus on insulin pump Peptic ulcer disease Past Surgical History Surgical history Cardiac stents X3 to thin in 2006 Kidney stone removal Bilateral knee surgery Coded Allergies: Carvedilol (Verified Allergy, Unknown, Hypotension, 09/24/16) Cipro (Verified Allergy, Unknown, Rash, 09/24/16) Uncoded Allergies: SURGICAL TAPE (Adverse Reaction, Intermediate, 04/23/15) BLISTERS Medications Current Medications Piperacillin Sod/ Tazobactam Sod 100 ml @ 200 mls/hr ONCE STAT IV Last administered on 09/24/16 14:32; Start 09/24/16 at 12:48; Stop 09/24/16 at 13:17 ; Status DC Vancomycin HCl 1000 mg/Sodium Chloride 250 ml @ 250 mls/hr ONCE STAT IV Last administered on 09/24/16 15:19; Start 09/24/16 at 12:48; Stop 09/24/16 at 13:47 ; Status DC Sodium Chloride 1,000 ml @ 1,000 mls/hr Q1H ONCE IV Last administered on 14:33; Start 09/24/16 at 12:48; Stop 09/24/16 at 13:47; Status DC Sodium Chloride 1,000 ml @ 1,000 mls/hr Q1H ONCE IV Last administered on 14:33; Start 09/24/16 at 12:48; Stop 09/24/16 at 13:47; Status DC Sodium Chloride 1,000 ml @ 1,000 mls/hr Q1H ONCE IV Last administered on 17:47; Start 09/24/16 at 12:48; Stop 09/24/16 at 13:47; Status DC Sodium Chloride 900 ml @ 1,000 mls/hr Q54M ONCE IV Last administered on 18:52; Start 09/24/16 at 12:48; Stop 09/24/16 at 13:41; Status DC Sodium Chloride (NS 1000 ml Inj) 1,000 ml @ 70 mls/hr [id number] IV Last administered on 09/26/16 21:41; Start 09/24/16 at 15:28 IV Flush (NS Flush) 2 ml UNSCH PRN FLUSH FLUSH AFTER USING IV ACCESS Last administered on 09/27/16 05:22; Start 09/24/16 at 15:30 IV Flush (NS Flush) 2 ml BID FLUSH Last administered on 09/27/16 08:58; Start 09/24/16 at 21:00 Acetaminophen (Tylenol) 650 mg Q4H PRN PO TEMP > 100.4; Start 09/24/16 at 15:30 Ondansetron HCl (Zofran Inj) 4 mg Q6H PRN IVP NAUSEA OR VOMITING; Start at 15:30 Temazepam (Restoril) 15 mg HS PRN PO INSOMNIA; Start 09/24/16 at 15:30 Acetaminophen (Tylenol) 650 mg Q6H PRN PO PAIN SCALE 1 TO 2; Start 09/24/16 at 15:30 Acetaminophen/ Hydrocodone Bitart ([place] 5-325 Mg) 1 tab Q4H PRN PO PAIN SCALE 3 TO 5 Last administered on 09/27/16 18:06; Start 09/24/16 at 15:30 Naloxone HCl (Narcan Inj) 0.4 mg UNSCH PRN IV SEE LABEL COMMENTS; Start at 15:30 Dextrose (D50w (Vial) Inj) 25 ml UNSCH PRN IV PUSH HYPOGLYCEMIA-SEE COMMENTS; Start 09/24/16 at 15:30 Glucagon (Glucagon Inj) 1 mg UNSCH PRN OTHER HYPOGLYCEMIA-SEE COMMENTS; Start 09/24/16 at 15:30 Insulin Aspart (NovoLOG SUPPLEMENTAL SCALE) 1 ACHS SLIDING SCALE SQ Last administered on 09/27/16 21:27; Start 09/24/16 at 16:00 Albuterol/ Ipratropium (Duoneb Neb) 1 ampule Q2HR NEB PRN NEB SOB/WHEEZING; Start 09/24/16 at 15:30 Hydralazine HCl (Apresoline) 25 mg Q8HR PRN PO SBP>160, DBP>90; Start 09/24/16 at 15:30 Senna/Docusate Sodium 2 tab 2 tab BID PRN PO CONSTIPATION; Start 09/24/16 at 15 :30 Ceftriaxone Sodium 1000 mg/ Sodium Chloride 100 ml @ 200 mls/hr Q24H IV Last administered on 09/26/16 11:34; Start 09/25/16 at 09:00; Stop 09/26/16 at 17:00 ; Status DC Pharmacy Profile Note 0 ml @ 0 mls/hr UNSCH OTHER ; Start 09/24/16 at 16:00 Vancomycin HCl/ Sodium Chloride (Vancomycin Inj/ NS 250 ml Inj) 262.5 ml @ 262.5 mls/ hr Q24H IV ; Start 09/25/16 at 09:00; Stop 09/25/16 at 09:00; Status DC Allopurinol (Zyloprim) 300 mg DAILY PO Last administered on 09/27/16 08:58; Start 09/25/16 at 09:00 Amlodipine Besylate (Norvasc) 10 mg DAILY PO Last administered on 09/27/16 08: 58; Start 09/25/16 at 09:00 Atorvastatin Calcium (Lipitor) 80 mg HS PO Last administered on 09/27/16 21:22 ; Start 09/24/16 at 21:00 Carvedilol (Coreg) 12.5 mg BID PO Last administered on 09/27/16 21:22; Start 09/24/16 at 21:00 Furosemide (Lasix) 40 mg DAILY PO Last administered on 09/27/16 08:58; Start 09/25/16 at 09:00 Patient Own Medication PT OWN MED:IODOFLEX 0.9% PAD DAILY TOPICAL ; Start at 16:15; Status Hold Vancomycin HCl/ Sodium Chloride (Vancomycin Inj/ NS 500 ml Inj) 518 ml @ 250 mls/hr Q24H IV Last administered on 09/25/16 05:44; Start 09/25/16 at 06:00; Stop 09/25/16 at 10:03; Status DC Miscellaneous Information SPECIFIC LAB TO BE DRAWN:VANCOMY... ONCE ONCE XX ; Start 09/28/16 at 05:45; Stop 09/28/16 at 05:46 Vancomycin HCl 2100 mg/Sodium Chloride 521 ml @ 250 mls/hr Q24H IV Last administered on 09/27/16 06:24; Start 09/26/16 at 06:00 Cefepime HCl/ Sodium Chloride (Maxipime Inj/NS Inj) 100 ml @ 200 mls/hr Q12H IV Last administered on 09/27/16 15:55; Start 09/26/16 at 17:00 Midazolam HCl (Versed Inj) 2 mg STK-MED ONCE .ROUTE ; Start 09/27/16 at 12:09; Stop 09/27/16 at 12:10; Status DC Dexamethasone Sodium Phosphate (Decadron Inj) 4 mg STK-MED ONCE .ROUTE ; Start 09/27/16 at 12:09; Stop 09/27/16 at 12:10; Status DC Famotidine (Pepcid Inj) 20 mg STK-MED ONCE .ROUTE ; Start 09/27/16 at 12:09; Stop 09/27/16 at 12:10; Status DC Fentanyl Citrate (fentaNYL INJ) 100 mcg STK-MED ONCE .ROUTE ; Start 09/27/16 at 12:15; Stop 09/27/16 at 12:16; Status DC Fentanyl Citrate (fentaNYL INJ) 200 mcg STK-MED ONCE .ROUTE ; Start 09/27/16 at 12:17; Stop 09/27/16 at 12:18; Status DC Midazolam HCl (Versed Inj) 2 mg STK-MED ONCE IVP Last administered on 12:14; Start 09/27/16 at 12:14; Stop 09/27/16 at 12:36; Status DC Famotidine (Pepcid Inj) 20 mg STK-MED ONCE IV PUSH Last administered on 12:16; Start 09/27/16 at 12:16; Stop 09/27/16 at 12:36; Status DC Dexamethasone Sodium Phosphate (Decadron Inj) 4 mg STK-MED ONCE IV PUSH Last administered on 09/27/16t 12:17; Start 09/27/16 at 12:17; Stop 09/27/16 at 12:37 ; Status DC Neomycin/Polymyxin (Neosporin G.u. Irr) 3 ml STK-MED ONCE XX Last administered on 09/27/16t 12:44; Start 09/27/16 at 12:44; Stop 09/27/16 at 14:08; Status DC Miscellaneous Information ALL NURSING DEPARTME... UNSCH PRN XX SEE LABEL COMMENTS; Start 09/27/16 at 15:00; Stop 09/28/16 at 14:59 Family History Family history positive for diabetes2 Social History He denies tobacco, alcohol or illicit drug intake Review of Systems ROS Review of systems Patient denies any headache dizziness blurry vision, denies any chest pain shortness of breath cough fever chills, Denies any palpitations or fatigue denies any polyuria dysuria hematuria, denies any numbness tingling or weakness, denies any skin rash pruritus or jaundice, denies any easy bruising or bleeding tendency, denies any recent change in mood GI Exam Vitals I&O Vital Signs Date Time Temp Pulse Resp B/P Pulse Ox O2 Delivery O2 Flow Rate FiO2 09/27/16 16:12 96.0 69 18 158/86 93 09/27/16 14:38 97.8 63 15 142/75 97 Room Air 09/27/16 14:30 97.8 63 15 142/75 97 Room Air 09/27/16 14:15 60 16 136/64 94 Nasal Cannula 2 09/27/16 14:00 60 16 137/73 97 Nasal Cannula 2 09/27/16 13:50 97.7 60 16 143/74 99 Face Tent 09/27/16 10:15 97.9 68 20 125/70 97 09/27/16 08:09 96.6 69 18 155/83 96 09/27/16 04:00 96.4 56 18 137/81 96 09/27/16 00:00 95.5 56 20 140/76 97 I/O 09/26/16 09/26/16 09/26/16 09/27/16 09/27/16 09/27/16 07:00 15:00 23:00 07:00 15:00 23:00 Intake Total 716 ml 1400 ml 742 ml 1146 ml 950 ml 350 ml Output Total 225 ml 875 ml 800 ml 100 ml 1600 ml Balance 491 ml 525 ml 742 ml 346 ml 850 ml -1250 ml Intake Oral 160 ml 1400 ml 480 ml 350 ml IV Total 556 ml 742 ml 666 ml 50 ml Other 900 ml Output Urine Total 225 ml 875 ml 800 ml 1600 ml Estimated Blood Loss 100 ml # Voids 1 # Bowel Movements 0 0 1 Imaging Last Impressions Liver Ultrasound 09/27/16 0000 Signed Impressions: Service Date/Time: Tuesday, September 27, 2016 15:18 - CONCLUSION: 1. Sonographic findings consistent with cirrhosis. Hepatopedal flow within the portal vein. 2. Splenomegaly. 3. Gallbladder sludge. The gallbladder wall is poorly evaluated due to the decompressed nature of the gallbladder. Adam Wright Jr., MD Bone Scan Nuclear Medicine 09/25/16 0000 Signed Impressions: Service Date/Time: Sunday, September 25, 2016 11:55 - CONCLUSION: 1. Findings suggesting osteomyelitis of the right great toe metatarsal head neck and distal shaft in the proper clinical setting. 2. Abnormality of the right tarsometatarsal joints and subtalar joint likely represent arthritic findings/diabetic osteoarthropathy.. Similar but less prominent findings are also seen on the left. Rosalino Cornejo MD Ankle X-Ray 09/25/16 0000 Signed Impressions: Service Date/Time: Sunday, September 25, 2016 09:27 - CONCLUSION: Scattered cystic and hypertrophic change at the hindfoot. There is soft tissue swelling. José Antonio Wooten MD Chest X-Ray 09/24/16 1248 Signed Impressions: Service Date/Time: Saturday, September 24, 2016 12:54 - CONCLUSION: Normal examination. José Antonio Wooten MD Foot X-Ray 09/24/16 0000 Signed Impressions: Service Date/Time: Saturday, September 24, 2016 12:59 - CONCLUSION: Chronic bony change as described above. There is soft tissue swelling of the foot. José Antonio Wooten MD Laboratory Test 09/27/16 15:35 Amylase Level 23 U/L Lipase 143 U/L Date/Time Procedure Status Source Growth 09/27/16 14:00 Gram Stain Received Wound Foot Pending 09/27/16 14:00 Wound Culture Received Wound Foot Pending 09/27/16 14:00 Fungal Smear Received Wound Foot Pending 09/27/16 14:00 Fungal Culture Received Wound Foot Pending 09/27/16 14:00 Acid Fast Stain Received Wound Foot Pending 09/27/16 14:00 Mycobacterial Culture Received Wound Foot Pending 09/24/16 14:18 Aerobic Blood Culture - Preliminary Resulted Blood Peripheral NO GROWTH IN 3 DAYS 09/24/16 14:18 Anaerobic Blood Culture - Preliminary Resulted Blood Peripheral NO GROWTH IN 3 DAYS Physical Examination HEENT: Pupils round and reactive to light; normocephalic; atraumatic; no jaundice. Throat is clear. NECK: Neck is supple, no JVD, no lymphadenopathy. CHEST: Chest is clear to auscultation and percussion. CARDIAC: Regular rate and rhythm with no murmur gallop or rubs. ABDOMEN: Obese Soft, nondistended, nontender; no hepatosplenomegaly; bowel sounds are present in all four quadrants. EXTREMITIES: No clubbing, cyanosis, R extremity edema. SKIN: Chronic lower extremity skin changes stasis dermatitis; no jaundice. 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 Assessment and Plan Plan Elevated liver function tests Acute kidney injury Anemia Cirrhosis on ultrasound Gallbladder sludge Cellulitis Elevated liver function tests probably multi-factorial probably relating to underlying steatohepatitis secondary to poorly controlled diabetes but this could also have been exacerbated by infection and/or medication Agree with current supportive care Monitor labs Controlled diabetes We will proceed with liver workup Further recommendations shall depend on hospital course Heber Jessica MD Sep 27, 2016 21:59
[2016-09-28 01:11] VITALS: BP 156/82; PULSE 63; RESP 20; TEMP 98; O2SAT 95
[2016-09-28 04:27] VITALS: BP 156/82; PULSE 63; RESP 20; TEMP 98; O2SAT 95
[2016-09-28] MEDS: CEFEPIME INJ 2,000 MG in SODIUM CHLORIDE 0.9% INJ 100 ML IV SCH ×2 (05:14→17:15)
[2016-09-28] MEDS: ACETAMINOPHEN/HYDROcodone 325 MG/5 MG TAB PO PRN ×2 (05:14→07:23)
[2016-09-28] MEDS: SODIUM CHLOR 0.9% 1000 ML INJ 1,000 ML IV SCH ×2 (05:16→17:15)
[2016-09-28] MEDS ORDERED: VANCOMYCIN TROUGH XX ONE (05:45)
[2016-09-28] MEDS: VANCOMYCIN INJ 2,100 MG in SODIUM CHLORID 0.9% 500 ML INJ 500 ML IV SCH ×2 (06:15→06:53)
[2016-09-28] MEDS: INSULIN ASPART SUPPLEMENTAL SCALE SQ SCH ×4 (06:52→20:26)
[2016-09-28 07:26] LABS: AUTOMATED NEUTROPHIL # 8.8 TH/MM3 (1.8-7.7); BASOPHIL % 0.2 % (0.0-2.0); EOSINOPHIL % 0.1 % (0.0-4.0); HEMATOCRIT 29.5 % (39.0-51.0); HEMO FLAGS DIFF FINAL; LYMPH % 8.4 % (9.0-44.0); LYMPHOCYTE # 0.8 TH/MM3 (1.0-4.8); MEAN CELL VOLUME 80.1 FL (80.0-100.0); MEAN CORPUSCULAR HEMOGLOBIN 26.3 PG (27.0-34.0); MEAN CORPUSCULAR HGB CONC 32.8 % (32.0-36.0); MONO % 5.2 % (0.0-8.0); NEUT % 86.1 % (16.0-70.0); PLATELET COUNT 202 TH/MM3 (150-450); RED BLOOD COUNT 3.69 MIL/MM3 (4.50-5.90); RED CELL DISTRIBUTION WIDTH 15.5 % (11.6-17.2); WHITE BLOOD COUNT 10.1 TH/MM3 (4.0-11.0)
[2016-09-28 07:54] LABS: ALKALINE PHOSPHATASE 316 U/L (45-117); ALT (GPT) 132 U/L (12-78); ANION GAP 9 MEQ/L (5-15); AST (GOT) 33 U/L (15-37); BICARBONATE 19.6 MEQ/L (21.0-32.0); BLOOD UREA NITROGEN 54 MG/DL (7-18); CHLORIDE 111 MEQ/L (98-107); GLOMERULAR FILTRATION RATE 28 ML/MIN (>89); POTASSIUM 5.4 MEQ/L (3.5-5.1); SODIUM (NA) 140 MEQ/L (136-145); TOTAL BILIRUBIN ADULT 0.2 MG/DL (0.2-1.0)
[2016-09-28 08:00] VITALS: BP 156/78; PULSE 63; RESP 22; TEMP 97.5; O2SAT 96
[2016-09-28] MEDS: SODIUM CHLORIDE 0.9% FLUSH 5 ML FLUSH FLUSH SCH ×2 (09:00→20:10)
[2016-09-28] MEDS: ALLOPURINOL 300 MG TAB PO SCH (09:49)
[2016-09-28] MEDS: FUROSEMIDE 40 MG TAB PO SCH (09:49)
[2016-09-28] MEDS: CARVEDILOL 12.5 MG TAB PO SCH ×2 (09:49→20:26)
--- NOTE | 2016-09-28 09:54 | PD.POD ---
Subjective Pain score: 2 Remarks Blood loss of bandage this am, patient was walking. Past Med/Surg/Social History Social History Smoking Status: Former Smoker Objective Vital Signs Vital Signs Date Time Temp Pulse Resp B/P Pulse Ox O2 Delivery O2 Flow Rate FiO2 09/28/16 08:00 97.5 63 22 156/78 96 09/28/16 04:27 98.0 63 20 156/82 95 09/28/16 01:11 98.0 63 20 156/82 95 09/27/16 20:27 98.1 77 22 155/79 94 09/27/16 19:06 18 09/27/16 16:12 96.0 69 18 158/86 93 09/27/16 14:38 97.8 63 15 142/75 97 Room Air 09/27/16 14:30 97.8 63 15 142/75 97 Room Air 09/27/16 14:15 60 16 136/64 94 Nasal Cannula 2 09/27/16 14:00 60 16 137/73 97 Nasal Cannula 2 09/27/16 13:50 97.7 60 16 143/74 99 Face Tent 09/27/16 10:15 97.9 68 20 125/70 97 Coded Allergies: Carvedilol (Verified Allergy, Unknown, Hypotension, 09/24/16) Cipro (Verified Allergy, Unknown, Rash, 09/24/16) Uncoded Allergies: SURGICAL TAPE (Adverse Reaction, Intermediate, 04/23/15) BLISTERS Medications and IVs Administered Medications Medications (Trade) Dose Ordered Sig/Loulou Route PRN Reason Start Time Stop Time Status Last Admin Dose Admin Sodium Chloride (NS 1000 ml Inj) 1,000 ml @ 70 mls/hr [id number] IV 09/24/16 15:28 09/26/16 21:41 IV Flush (NS Flush) 2 ml UNSCH PRN FLUSH FLUSH AFTER USING IV ACCESS 09/24/16 15:30 09/27/16 05:22 IV Flush (NS Flush) 2 ml BID FLUSH 09/24/16 21:00 09/27/16 08:58 Acetaminophen/ Hydrocodone Bitart ([place] 5-325 Mg) 1 tab Q4H PRN PO PAIN SCALE 3 TO 5 09/24/16 15:30 09/28/16 05:14 Allopurinol (Zyloprim) 300 mg DAILY PO 09/25/16 09:00 09/27/16 08:58 Amlodipine Besylate (Norvasc) 10 mg DAILY PO 09/25/16 09:00 09/27/16 08:58 Atorvastatin Calcium (Lipitor) 80 mg HS PO 09/24/16 21:00 09/27/16 21:22 Carvedilol (Coreg) 12.5 mg BID PO 09/24/16 21:00 09/27/16 21:22 Furosemide 40 mg 40 mg DAILY PO 09/25/16 09:00 09/27/16 08:58 Cefepime HCl/ Sodium Chloride (Maxipime Inj/NS Inj) 100 ml @ 200 mls/hr Q12H IV 09/26/16 17:00 09/28/16 05:14 Other Results Laboratory Tests Test 09/28/16 07:03 White Blood Count 10.1 TH/MM3 Red Blood Count 3.69 MIL/MM3 Hemoglobin 9.7 GM/DL Hematocrit 29.5 % Mean Corpuscular Volume 80.1 FL Mean Corpuscular Hemoglobin 26.3 PG Mean Corpuscular Hemoglobin 32.8 % Concent Red Cell Distribution Width 15.5 % Platelet Count 202 TH/MM3 Mean Platelet Volume 9.6 FL Neutrophils (%) (Auto) 86.1 % Lymphocytes (%) (Auto) 8.4 % Monocytes (%) (Auto) 5.2 % Eosinophils (%) (Auto) 0.1 % Basophils (%) (Auto) 0.2 % Neutrophils # (Auto) 8.8 TH/MM3 Lymphocytes # (Auto) 0.8 TH/MM3 Monocytes # (Auto) 0.5 TH/MM3 Eosinophils # (Auto) 0.0 TH/MM3 Basophils # (Auto) 0.0 TH/MM3 CBC Comment DIFF FINAL Differential Comment Laboratory Tests Test 09/27/16 09/28/16 09/28/16 15:35 06:40 07:03 Amylase Level 23 U/L Lipase 143 U/L Random Glucose 456 MG/DL 456 MG/DL Sodium Level 140 MEQ/L Potassium Level 5.4 MEQ/L Chloride Level 111 MEQ/L Carbon Dioxide Level 19.6 MEQ/L Anion Gap 9 MEQ/L Blood Urea Nitrogen 54 MG/DL Creatinine 2.30 MG/DL Estimat Glomerular Filtration 28 ML/MIN Rate Calcium Level 7.6 MG/DL Total Bilirubin 0.2 MG/DL Aspartate Amino Transf 33 U/L (AST/SGOT) Alanine Aminotransferase 132 U/L (ALT/SGPT) Alkaline Phosphatase 316 U/L Ammonia 30 MCMOL/L Total Protein 6.8 GM/DL Albumin 1.9 GM/DL Microbiology Date/Time Procedure Status Source Growth 09/27/16 14:00 Gram Stain - Final Resulted Wound Foot 09/27/16 14:00 Wound Culture Resulted Wound Foot Pending 09/27/16 14:00 Acid Fast Stain Received Wound Foot Pending 09/27/16 14:00 Mycobacterial Culture Received Wound Foot Pending 09/27/16 14:00 Fungal Smear - Final Resulted Wound Foot NO FUNGAL ELEMENTS SEEN. 09/27/16 14:00 Fungal Culture Resulted Wound Foot Pending 09/27/16 14:00 Gram Stain - Final Resulted Wound Foot 09/27/16 14:00 Wound Culture Resulted Wound Foot Pending 09/27/16 14:00 Acid Fast Stain Received Wound Foot Pending 09/27/16 14:00 Mycobacterial Culture Received Wound Foot Pending 09/27/16 14:00 Fungal Smear - Final Resulted Wound Foot NO FUNGAL ELEMENTS SEEN. 09/27/16 14:00 Fungal Culture Resulted Wound Foot Pending Bone bx pending. Objective Remarks Right foot ankle swelling and redness with some decrease over all edema. decreased sensation below the ankle, pes planus with no crepitus or instability , right foot ulcer with serous type drainage does not probe, callous and mixed granular 3cm ulcer at hallux amputation site, good pulses BL. left foot without ulcer Physical Exam Remarks Right foot ankle swelling and redness with some decrease over all edema. decreased sensation below the ankle, pes planus with no crepitus or instability , right foot- incision with some serous drainage, packing intact. Assessment & Plan A/P Right foot ulcer, possible OM, [place] (early non destructive) SP 1st met resection- I and D- 317 Bandaged, packing will removed, reviewed non compliance- one suture popped, FU tomorrow. Venancio Mason DPM Sep 28, 2016 09:54
--- NOTE | 2016-09-28 10:54 | HHI.GIFU ---
Subjective Remarks Comfortable in bed no complaints with family members around the bed Objective Vitals I&O Vital Signs Date Time Temp Pulse Resp B/P Pulse Ox O2 Delivery O2 Flow Rate FiO2 09/28/16 08:00 97.5 63 22 156/78 96 09/28/16 04:27 98.0 63 20 156/82 95 09/28/16 01:11 98.0 63 20 156/82 95 09/27/16 20:27 98.1 77 22 155/79 94 09/27/16 19:06 18 09/27/16 16:12 96.0 69 18 158/86 93 09/27/16 14:38 97.8 63 15 142/75 97 Room Air 09/27/16 14:30 97.8 63 15 142/75 97 Room Air 09/27/16 14:15 60 16 136/64 94 Nasal Cannula 2 09/27/16 14:00 60 16 137/73 97 Nasal Cannula 2 09/27/16 13:50 97.7 60 16 143/74 99 Face Tent I/O 09/27/16 09/27/16 09/27/16 09/28/16 09/28/16 09/28/16 07:00 15:00 23:00 07:00 15:00 23:00 Intake Total 1146 ml 950 ml 590 ml Output Total 800 ml 100 ml 1920 ml 200 ml Balance 346 ml 850 ml -1330 ml -200 ml Intake Oral 480 ml 590 ml IV Total 666 ml 50 ml Other 900 ml Output Urine Total 800 ml 1920 ml 200 ml Estimated Blood Loss 100 ml # Bowel Movements 1 Laboratory Laboratory Tests Test 09/27/16 09/28/16 09/28/16 15:35 06:40 07:03 Amylase Level 23 Lipase 143 Random Glucose 456 456 Vancomycin Level Trough 17.4 White Blood Count 10.1 Red Blood Count 3.69 Hemoglobin 9.7 Hematocrit 29.5 Mean Corpuscular Volume 80.1 Mean Corpuscular Hemoglobin 26.3 Mean Corpuscular Hemoglobin 32.8 Concent Red Cell Distribution Width 15.5 Platelet Count 202 Mean Platelet Volume 9.6 Neutrophils (%) (Auto) 86.1 Lymphocytes (%) (Auto) 8.4 Monocytes (%) (Auto) 5.2 Eosinophils (%) (Auto) 0.1 Basophils (%) (Auto) 0.2 Neutrophils # (Auto) 8.8 Lymphocytes # (Auto) 0.8 Monocytes # (Auto) 0.5 Eosinophils # (Auto) 0.0 Basophils # (Auto) 0.0 CBC Comment DIFF FINAL Differential Comment Sodium Level 140 Potassium Level 5.4 Chloride Level 111 Carbon Dioxide Level 19.6 Anion Gap 9 Blood Urea Nitrogen 54 Creatinine 2.30 Estimat Glomerular Filtration 28 Rate Calcium Level 7.6 Total Bilirubin 0.2 Aspartate Amino Transf 33 (AST/SGOT) Alanine Aminotransferase 132 (ALT/SGPT) Alkaline Phosphatase 316 Ammonia 30 Total Protein 6.8 Albumin 1.9 Date/Time Procedure Status Source Growth 09/27/16 14:00 Gram Stain - Final Resulted Wound Foot 09/27/16 14:00 Wound Culture Resulted Wound Foot Pending 09/27/16 14:00 Fungal Smear - Final Resulted Wound Foot NO FUNGAL ELEMENTS SEEN. 09/27/16 14:00 Fungal Culture Resulted Wound Foot Pending 09/27/16 14:00 Acid Fast Stain Received Wound Foot Pending 09/27/16 14:00 Mycobacterial Culture Received Wound Foot Pending 09/24/16 14:18 Aerobic Blood Culture - Preliminary Resulted Blood Peripheral NO GROWTH IN 3 DAYS 09/24/16 14:18 Anaerobic Blood Culture - Preliminary Resulted Blood Peripheral NO GROWTH IN 3 DAYS Imaging Last 48 hours Impressions Liver Ultrasound 09/27/16 0000 Signed Impressions: Service Date/Time: Tuesday, September 27, 2016 15:18 - CONCLUSION: 1. Sonographic findings consistent with cirrhosis. Hepatopedal flow within the portal vein. 2. Splenomegaly. 3. Gallbladder sludge. The gallbladder wall is poorly evaluated due to the decompressed nature of the gallbladder. Adam Wright Jr., MD Physical Exam HEENT: normocephalic; atraumatic; no jaundice. Throat is clear. NECK: Neck is supple, CHEST: Chest is clear to auscultation and percussion. CARDIAC: Regular rate and rhythm with no murmur gallop or rubs. ABDOMEN: Obese Soft, nondistended, nontender; no hepatosplenomegaly; bowel sounds are present in all four quadrants. EXTREMITIES: No clubbing, cyanosis, 3+ edema lower extremity SKIN: Normal; no rash; no jaundice. 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 Assessment and Plan Plan Elevated liver function tests Acute kidney injury Anemia Cirrhosis on ultrasound Gallbladder sludge Cellulitis Low albumin probably malnutrition Elevated liver function tests probably multi-factorial probably relating to underlying steatohepatitis secondary to poorly controlled diabetes but this could also have been exacerbated by infection and/or medication Agree with current supportive care Monitor labs, Control diabetes liver workup in progress so far negative viral hepatitis Further recommendations shall depend on hospital course Heber Jessica MD Sep 28, 2016 10:54
[2016-09-28 11:53] LABS: FERRITIN 226 NG/ML (26-388)
[2016-09-28 12:00] VITALS: BP 138/80; PULSE 57; RESP 23; TEMP 98.1; O2SAT 95
--- NOTE | 2016-09-28 12:09 | HHI.PR ---
Subjective Remarks Resting in bed, looks fatigued, no chest pain short of breath, his foot pain is tolerable, I explained to him the update on his liver issue, GI following Objective Vitals Vital Signs Date Time Temp Pulse Resp B/P Pulse Ox O2 Delivery O2 Flow Rate FiO2 09/28/16 08:00 97.5 63 22 156/78 96 09/28/16 04:27 98.0 63 20 156/82 95 09/28/16 01:11 98.0 63 20 156/82 95 09/27/16 20:27 98.1 77 22 155/79 94 09/27/16 19:06 18 09/27/16 16:12 96.0 69 18 158/86 93 09/27/16 14:38 97.8 63 15 142/75 97 Room Air 09/27/16 14:30 97.8 63 15 142/75 97 Room Air 09/27/16 14:15 60 16 136/64 94 Nasal Cannula 2 09/27/16 14:00 60 16 137/73 97 Nasal Cannula 2 09/27/16 13:50 97.7 60 16 143/74 99 Face Tent I/O 09/27/16 09/27/16 09/27/16 09/28/16 09/28/16 09/28/16 07:00 15:00 23:00 07:00 15:00 23:00 Intake Total 1146 ml 950 ml 590 ml Output Total 800 ml 100 ml 1920 ml 200 ml Balance 346 ml 850 ml -1330 ml -200 ml Intake Oral 480 ml 590 ml IV Total 666 ml 50 ml Other 900 ml Output Urine Total 800 ml 1920 ml 200 ml Estimated Blood Loss 100 ml # Bowel Movements 1 Result Diagram: 09/28/16 0703 09/28/16 0703 Objective Remarks GENERAL: Well-developed, morbidly obese with BMI 47.0, in no acute distress. alert and orientated HEENT: Head is normocephalic without any lesions or masses noted. Facial features are symmetric. Eyes: Extraocular muscles are intact. Conjunctivae were clear. NECK: Supple without any masses. Trachea midline no deviation. No JVD, CARDIAC: Regular rhythm, regular rate. S1/S2 are heard. No murmurs gallops or rubs. LUNGS: Clear to auscultation bilaterally. No wheeze, rhonchi or rales. No use of accessory muscles on inspiration or expiration. ABDOMEN: Soft, nontender. Nondistended. Bowel sounds heard in all 4 quadrants. No organomegaly or masses. Negative rebound, negative guarding EXTREMITIES: +2 edema, pulses are equal bilaterally. No cyanosis or clubbing NEUROLOGY: Mood and affect appear appropriate. Cranial nerves II through XII grossly intact. Moving all extremities, speech is clear A/P Problem List: (1) Diabetic infection of right foot ICD Code: E11.69 Status: Acute (2) Type 2 diabetes mellitus with right diabetic foot infection ICD Code: E11.628 Status: Acute (3) Cellulitis ICD Code: L03.90 Status: Acute (4) Acute renal failure superimposed on stage 3 chronic kidney disease ICD Code: N17.9 Status: Acute Assessment and Plan MRSA Osteomyelitis of the right first metatarsal in a Diabetic patient: s/p Zosyn and Vancomycin IV x 1 in ED; Continue with Vancomycin and Rocephin IV daily. Three-phase bone scan was performed which does indicate osteomyelitis of the right distal metatarsal as well as bilateral abnormalities indicating possible underlying Charcot's. Consulted podiatry and cardiology for clearance for surgery. Wound culture positive for MRSA. Discussed with Dr. Mason , will consult ID Right foot cellulitis: Continue Rocephin and Vancomycin IV Type 2 diabetes mellitus with right diabetic foot infection: Patient is on insulin pump with basal rate of about 4.5 units per hour. Continue low-dose insulin sliding scale for additional coverage. Acute kidney injury on CKD3: Improving with Gentle IVF hydration, monitor BUN and creatinine and avoid all nephrotoxic drugs. Hold SLOANE inhibitor Hypertension: Currently on Norvasc and Coreg Transaminitis: Unknown etiology, bile hepatitis panel was negative, continue to trend liver enzymes. Liver ultrasound showed cirrhosis with splenomegaly, consulted GI DVT prevention: Prior history of right DVT: Status post IVC filter placement Problem Qualifiers (1) Cellulitis: Qualified Code: L03.115 - Cellulitis of right lower extremity Jorge Santacruz MD Sep 28, 2016 12:09 DVT prevention: Prior history of right DVT: Status post IVC filter placement Problem Qualifiers (1) Cellulitis: Qualified Code: L03.115 - Cellulitis of right lower extremity Jorge Santacruz MD Sep 28, 2016 12:09
[2016-09-28 16:00] VITALS: BP 161/81; PULSE 67; RESP 21; TEMP 98; O2SAT 95
[2016-09-28] MEDS: ATORVASTATIN 40 MG TAB PO SCH (20:26)
[2016-09-28 20:37] VITALS: BP 165/85; PULSE 90; RESP 24; TEMP 97.7; O2SAT 94
[2016-09-29 00:27] VITALS: BP_SYST 150; PULSE 101; RESP 20; TEMP 97.9; O2SAT 95
[2016-09-29] MEDS: CEFEPIME INJ 2,000 MG in SODIUM CHLORIDE 0.9% INJ 100 ML IV SCH (05:34)
[2016-09-29] MEDS: VANCOMYCIN INJ 2,000 MG in SODIUM CHLORID 0.9% 500 ML INJ 500 ML IV SCH (05:35)
[2016-09-29] MEDS: INSULIN ASPART SUPPLEMENTAL SCALE SQ SCH ×4 (06:28→21:39)
[2016-09-29 08:35] VITALS: BP 155/66; PULSE 69; RESP 15; TEMP 96.6; O2SAT 95
[2016-09-29] MEDS: SODIUM CHLORIDE 0.9% FLUSH 5 ML FLUSH FLUSH SCH ×2 (09:00→21:42)
[2016-09-29] MEDS: ALLOPURINOL 300 MG TAB PO SCH (09:20)
[2016-09-29] MEDS: CARVEDILOL 12.5 MG TAB PO SCH ×2 (09:20→21:42)
[2016-09-29] MEDS: FUROSEMIDE 40 MG TAB PO SCH (09:20)
[2016-09-29] MEDS: SODIUM CHLOR 0.9% 1000 ML INJ 1,000 ML IV SCH (09:25)
--- NOTE | 2016-09-29 10:20 | HHI.PR ---
Subjective Remarks Patient seen and examined today with Dr. Santacruz. Patient states that he is doing better. indicates that she does not feel that she can manage and take care of him when he goes home. Requesting rehabilitation for short term care. Objective Vitals Vital Signs Date Time Temp Pulse Resp B/P Pulse Ox O2 Delivery O2 Flow Rate FiO2 09/29/16 08:35 96.6 69 15 155/66 95 09/29/16 00:27 97.9 101 20 150/ 95 09/28/16 20:37 97.7 90 24 165/85 94 09/28/16 16:00 98.0 67 21 161/81 95 09/28/16 12:00 98.1 57 23 138/80 95 I/O 09/28/16 09/28/16 09/28/16 09/29/16 09/29/16 09/29/16 07:00 15:00 23:00 07:00 15:00 23:00 Intake Total 960 ml Output Total 200 ml 850 ml 480 ml Balance -200 ml 960 ml -850 ml -480 ml Intake Oral 960 ml Output Urine Total 200 ml 850 ml 480 ml # Bowel Movements 1 1 Result Diagram: 09/28/16 0703 09/28/16 0703 Objective Remarks GENERAL: Well-developed, morbidly obese with BMI 47.0, in no acute distress. alert and orientated HEENT: Head is normocephalic without any lesions or masses noted. Facial features are symmetric. Eyes: Extraocular muscles are intact. Conjunctivae were clear. NECK: Supple without any masses. Trachea midline no deviation. No JVD, CARDIAC: Regular rhythm, regular rate. S1/S2 are heard. No murmurs gallops or rubs. LUNGS: Clear to auscultation bilaterally. No wheeze, rhonchi or rales. No use of accessory muscles on inspiration or expiration. ABDOMEN: Soft, nontender. Nondistended. Bowel sounds heard in all 4 quadrants. No organomegaly or masses. Negative rebound, negative guarding EXTREMITIES: No edema, pulses are equal bilaterally. No cyanosis or clubbing. Bandage noted on right foot NEUROLOGY: Mood and affect appear appropriate. Cranial nerves II through XII grossly intact. Moving all extremities, speech is clear Urinary Catheter: No Vascular Central Line Catheter: No A/P Assessment and Plan Osteomyelitis of the right first metatarsal in a Diabetic patient: s/p Zosyn and Vancomycin IV x 1 in ED; Continue with Vancomycin. Three-phase bone scan was performed which does indicate osteomyelitis of the right distal metatarsal as well as bilateral abnormalities indicating possible underlying Charcot's. Cardiology did give medical clearance for surgery. Patient did undergo surgical intervention with abscess drainage and first metatarsal resection. Culture has indicated MRSA. Awaiting sensitivities. Consult infectious disease for antibiotic recommendations Right foot cellulitis: Continue Vancomycin IV Type 2 diabetes mellitus with right diabetic foot infection: Continue Accu- Cheks and sliding scale insulin. Patient is no longer using his insulin pump. Acute kidney injury on CKD3: Improving with Gentle IVF hydration, monitor BUN and creatinine and avoid all nephrotoxic drugs. Hold SLOANE inhibitor Hypertension: Currently on Norvasc and Coreg Transaminitis: Unknown etiology, Viral hepatitis panel was negative, continue to trend liver enzymes. Liver ultrasound shows cirrhosis, hepatopedal flow within the portal vein. Splenomegaly. Gallbladder sludge. Gallbladder wall is poorly evaluated due to decompressed nature of the gallbladder. GI consulted for recommendations. Indicating likely secondary to steatohepatitis secondary to poorly controlled diabetes but could also be an exacerbation of infection and/or medication. Continue supportive care. DVT prevention: Prior history of right DVT: Status post IVC filter placement Written by Sabino Jenkins PA-C, acting as scribe for Dr. Santacruz on 09/29/16 at 1230. The documentation accurately reflects the work and decisions performed face-to- face by Dr. Santacruz on 09/29/16 at 1230. Discharge Planning Family requesting rehabilitation placement, we'll consult case management Sabino Jenkins Sep 29, 2016 10:20 Jorge Santacruz MD Sep 29, 2016 16:24
[2016-09-29 10:59] LABS: POTASSIUM 4.9 MEQ/L (3.5-5.1)
--- NOTE | 2016-09-29 11:01 | PD.POD ---
Subjective Pain score: 2 Remarks more compliant with bedrest, seen with bedside. Past Med/Surg/Social History Social History Smoking Status: Former Smoker Objective Vital Signs Vital Signs Date Time Temp Pulse Resp B/P Pulse Ox O2 Delivery O2 Flow Rate FiO2 09/29/16 08:35 96.6 69 15 155/66 95 09/29/16 00:27 97.9 101 20 150/ 95 09/28/16 20:37 97.7 90 24 165/85 94 09/28/16 16:00 98.0 67 21 161/81 95 09/28/16 12:00 98.1 57 23 138/80 95 Coded Allergies: Carvedilol (Verified Allergy, Unknown, Hypotension, 09/24/16) Cipro (Verified Allergy, Unknown, Rash, 09/24/16) Uncoded Allergies: SURGICAL TAPE (Adverse Reaction, Intermediate, 04/23/15) BLISTERS Objective Remarks Right foot ankle swelling and redness with some decrease over all edema. decreased sensation below the ankle, pes planus with no crepitus or instability , right foot incision with serosanguineous drainage, no odor or ischemia Assessment & Plan A/P Right foot ulcer, possible OM, charcot (early non destructive) SP 1st met resection- I and D- 3-17 Bandaged, packing removed, awaiting bone path however MRSA is Cx from bone and soft tissue. CAM boot ordered to allow transfer WB and short distance walking once wound heals. Discussion re: SNF/ rehab, will follow pending Bn Bx, no further surgery planned. ID consult? may need minimum of 2-4 IV ABX, or longer. Venancio Mason DPM Sep 29, 2016 11:01
[2016-09-29 11:06] LABS: BICARBONATE 20.9 MEQ/L (21.0-32.0)
[2016-09-29 11:08] LABS: AUTOMATED NEUTROPHIL # 6.9 TH/MM3 (1.8-7.7); BASOPHIL % 0.4 % (0.0-2.0); EOSINOPHIL # 0.2 TH/MM3 (0-0.4); EOSINOPHIL % 2.7 % (0.0-4.0); HEMATOCRIT 30.5 % (39.0-51.0); HEMO FLAGS DIFF FINAL; LYMPHOCYTE # 1.5 TH/MM3 (1.0-4.8); MEAN CELL VOLUME 81.4 FL (80.0-100.0); MEAN CORPUSCULAR HEMOGLOBIN 26.6 PG (27.0-34.0); MEAN CORPUSCULAR HGB CONC 32.7 % (32.0-36.0); MONO % 5.8 % (0.0-8.0); NEUT % 75.1 % (16.0-70.0); PLATELET COUNT 209 TH/MM3 (150-450); RED BLOOD COUNT 3.74 MIL/MM3 (4.50-5.90); RED CELL DISTRIBUTION WIDTH 16.2 % (11.6-17.2); WHITE BLOOD COUNT 9.1 TH/MM3 (4.0-11.0)
--- NOTE | 2016-09-29 12:26 | HHI.GIFU ---
Subjective Remarks Comfortable in bed at bedside no new complaints Objective Vitals I&O Vital Signs Date Time Temp Pulse Resp B/P Pulse Ox O2 Delivery O2 Flow Rate FiO2 09/29/16 08:35 96.6 69 15 155/66 95 09/29/16 00:27 97.9 101 20 150/ 95 09/28/16 20:37 97.7 90 24 165/85 94 09/28/16 16:00 98.0 67 21 161/81 95 I/O 09/28/16 09/28/16 09/28/16 09/29/16 09/29/16 09/29/16 07:00 15:00 23:00 07:00 15:00 23:00 Intake Total 960 ml Output Total 200 ml 850 ml 480 ml Balance -200 ml 960 ml -850 ml -480 ml Intake Oral 960 ml Output Urine Total 200 ml 850 ml 480 ml # Bowel Movements 1 1 Laboratory Laboratory Tests Test 09/29/16 10:40 White Blood Count 9.1 Red Blood Count 3.74 Hemoglobin 10.0 Hematocrit 30.5 Mean Corpuscular Volume 81.4 Mean Corpuscular Hemoglobin 26.6 Mean Corpuscular Hemoglobin 32.7 Concent Red Cell Distribution Width 16.2 Platelet Count 209 Mean Platelet Volume 9.1 Neutrophils (%) (Auto) 75.1 Lymphocytes (%) (Auto) 16.0 Monocytes (%) (Auto) 5.8 Eosinophils (%) (Auto) 2.7 Basophils (%) (Auto) 0.4 Neutrophils # (Auto) 6.9 Lymphocytes # (Auto) 1.5 Monocytes # (Auto) 0.5 Eosinophils # (Auto) 0.2 Basophils # (Auto) 0.0 CBC Comment DIFF FINAL Differential Comment Sodium Level 144 Potassium Level 4.9 Chloride Level 111 Carbon Dioxide Level 20.9 Anion Gap 12 Blood Urea Nitrogen 54 Creatinine 2.10 Estimat Glomerular Filtration 31 Rate Random Glucose 261 Calcium Level 7.8 Date/Time Procedure Status Source Growth 09/27/16 14:00 Gram Stain - Final Complete Wound Foot 09/27/16 14:00 Wound Culture - Final Complete S. Aureus Mrsa 09/27/16 14:00 Fungal Smear - Final Resulted Wound Foot NO FUNGAL ELEMENTS SEEN. 09/27/16 14:00 Fungal Culture Resulted Wound Foot Pending 09/27/16 14:00 Acid Fast Stain Worksheet Wound Foot Pending 09/27/16 14:00 Mycobacterial Culture Worksheet Wound Foot Pending 09/24/16 14:18 Aerobic Blood Culture - Final Complete Blood Peripheral NO GROWTH IN 5 DAYS 09/24/16 14:18 Anaerobic Blood Culture - Final Complete Blood Peripheral NO GROWTH IN 5 DAYS Physical Exam HEENT: normocephalic; atraumatic; no jaundice. Throat is clear. NECK: Neck is supple, CHEST: Chest is clear to auscultation and percussion. CARDIAC: Regular rate and rhythm with no murmur gallop or rubs. ABDOMEN: Obese Soft, nondistended, nontender; no hepatosplenomegaly; bowel sounds are present in all four quadrants. EXTREMITIES: No clubbing, cyanosis, 3+ edema lower extremity SKIN: Normal; no rash; no jaundice. MANAGER CATEGORY: No focal deficits; alert and oriented times three. Assessment and Plan Plan Elevated liver function tests the trend is down at this point Acute kidney injury Anemia Cirrhosis on ultrasound Gallbladder sludge Cellulitis Low albumin probably malnutrition Elevated liver function tests probably multi-factorial probably relating to underlying steatohepatitis secondary to poorly controlled diabetes but this could also have been exacerbated by infection and/or medication Agree with current supportive care Monitor labs, Control diabetes liver workup in progress so far negative viral hepatitis Further recommendations shall depend on hospital course Heber Jessica MD Sep 29, 2016 12:26
[2016-09-29] MEDS: INSULIN DETEMIR 100 UNITS/ML VIAL SQ SCH ×2 (12:29→21:39)
[2016-09-29 12:45] VITALS: BP 163/76; PULSE 66; RESP 16; TEMP 97.6; O2SAT 94
--- NOTE | 2016-09-29 16:27 | MP ---
cc: ANGELICA ALVAREZ DP DATE OF SURGERY September 27, 2016 PREOPERATIVE DIAGNOSIS Right foot osteomyelitis, deep abscess. POSTOPERATIVE DIAGNOSIS Right foot osteomyelitis, deep abscess. PROCEDURES PERFORMED Right first metatarsal partial resection, incision and drainage deep right foot with removal of tibial and fibular sesamoid. ANESTHESIA General. TOURNIQUET TIME Esmarch about the ankle approximately 45 minutes. ESTIMATED BLOOD LOSS Approximately 100 ml. Packing was placed in the wound. COMPLICATIONS None. SPECIMEN Bone for pathological analysis to check proximal margin as well as microbial specimen of soft tissue and bone for microbial analysis. PROCEDURE IN DETAIL Under mild sedation the patient was brought to the operating room, placed on the operative table in the supine position. Following the induction of general anesthesia, the patient's right lower extremity is scrubbed, prepped and draped in the usual aseptic fashion. The foot was elevated, exsanguinated and a Esmarch bandage was wrapped about the patient's distal ankle. Incision was made over the dorsal aspect of first metatarsal. There was noted to be immediately purulent material. There was no odor. It appeared to be cloudy white. It appeared to go along the extensor tendon. Upon deep incision down to the first metatarsal there was noted to be definite discoloration at the mid to distal first metatarsal. It was noted be soft. At this time a saw blade was used to remove three-quarters of the first metatarsal. The margin was then inked and sent for pathological analysis. Curette was used to remove bone which was sent for microbial analysis and soft tissue was also removed and sent for microbial analysis. All nonviable tissue was removed. The plantar space was explored. It appeared the abscess stayed in the dorsal surface. The wound was flushed with copious amounts of normal saline with irrigant. Bipolar Bovie took place upon relieving the tourniquet. The wound was then packed with 1/4 inch iodoform and loosely approximated utilizing Prolene. There was noted to be good viability of the patient's incision and foot. A bulky bandage placed. The patient transferred OR to PACU with all vital signs stable. This infection and was actually quite bad and it went quite deep. The patient may need to return to the operating room at a later date, we will see. I will continue to follow along and advise however, right not it appears we are waiting for pathology and microbial analysis. CHEYANNE Esquivel /1:52 PM /4:16 PM
--- NOTE | 2016-09-29 16:50 | PD.CONS ---
History of Present Illness Service Infectious Disease Consult Requested By Dr Santacruz Reason for Consult Evaluate patient with MRSA, S/O surgery foot Primary Care Physician Mena Mars Diagnoses: History of Present Illness Patient seen and examined. Records reviewed. Patient is a 71-year-old male admitted to the hospital for further evaluation of worsening redness, swelling, and pain on his right foot. Patient had previous right big toe amputation. He has developed some callus and has had some problem with an open wound. It had healed in the past, but recently since around [facility] he has developed another area. He has been following with the ID podiatry, and about a week prior to admission on one of his follow-up the c python developer did some debridement of his sore. 2 days after that debridement , patient stated that he started noticing some mild redness and swelling. He also had several days of chills although he didn't really take his temperature. About 2-3 days prior to admission the redness started getting worse, and he started noticing pain. The has been encouraging him to go to the hospital but he refused, and finally agreed to come to the hospital and finally admitted. Since admission his temperature has been normal. His WBC is normal. Sedimentation rate is 59. Podiatry was consult to it, and the patient was taken to surgery September 27. He had partial resection of his first metatarsal. Tissue and bone culture were sent and it is now reported as growing MRSA. Culture report is still pending. Infectious disease consultation has been requested to make recommendation regarding antibiotics. Review of Systems Constitutional: DENIES: Fever, Chills Eyes: DENIES: Eye pain Ears, nose, mouth, throat: DENIES: Nasal discharge, Oral lesions, Throat pain, Ear Pain, Sinus Pain Respiratory: COMPLAINS OF: Shortness of breath, DENIES: Cough Cardiovascular: DENIES: Chest pain, Palpitations Gastrointestinal: DENIES: Abdominal pain, Diarrhea, Nausea, Vomiting, Difficulty Swallowing Genitourinary: DENIES: Hematuria, Dysuria Musculoskeletal: COMPLAINS OF: Joint pain, Joint Swelling Integumentary: DENIES: Rash Neurologic: DENIES: Headache Psychiatric: DENIES: Confusion, Hallucinations Past Family Social History Allergies: Coded Allergies: Carvedilol (Verified Allergy, Unknown, Hypotension, 09/24/16) Cipro (Verified Allergy, Unknown, Rash, 09/24/16) Uncoded Allergies: SURGICAL TAPE (Adverse Reaction, Intermediate, 04/23/15) BLISTERS Past Medical History DVT diagnosed almost 1 month ago on xarelto CHF Coronary artery disease, with 3 stents placed in 2006 Hyperlipidemia Hypertension Diabetes mellitus on insulin pump Peptic ulcer disease Sleep apnea, he uses a BiPAP machine Past Surgical History Cardiac stents X3 to thin in 2006 Kidney stone removal Right knee arthroplasty 2 Left knee meniscus surgery Great toe amputation Active Ordered Medications Tylenol Or cold Albuterol Allopurinol Norvasc Lipitor Coreg Lasix Hydralazine Insulin Zofran Michaelle-Colace Restoril Vancomycin Social History He denies recent tobacco, used to smoke 3 packs per day, quit 35 years ago Denies alcohol or illicit drug intake Patient is Physical Exam Vital Signs Vital Signs Date Time Temp Pulse Resp B/P Pulse Ox O2 Delivery O2 Flow Rate FiO2 09/29/16 12:45 97.6 66 16 163/76 94 09/29/16 08:35 96.6 69 15 155/66 95 09/29/16 00:27 97.9 101 20 150/ 95 09/28/16 20:37 97.7 90 24 165/85 94 Physical Exam GENERAL: This is an obese, well-developed male, awake and alert, in no apparent distress. SKIN: Cool and dry. No generalized rash. HEAD: Atraumatic. Normocephalic. No temporal or scalp tenderness. EYES: Bristow conjunctivae. Pupils equal round and reactive. Extraocular motions intact. No scleral icterus. No injection or drainage. ENT: Nose without bleeding, or purulent drainage. Moist oral mucosa. Troat without erythema, tonsillar hypertrophy or exudate. Uvula midline. Airway patent. NECK: Trachea midline. Neck is short and obese. No lymphadenopathy. Supple, nontender, no meningeal signs. CARDIOVASCULAR: Regular rate and rhythm without murmurs, gallops, or rubs. Soft heart sounds. RESPIRATORY: Clear to auscultation. Breath sounds equal bilaterally. No wheezes , rales, or rhonchi. Decreased breath sounds at the bases. GASTROINTESTINAL: Abdomen obese, mildly distended, nontender. Bowel sounds are present and normoactive. Limited exam due to the size of the abdomen. No guarding no rebound. MUSCULOSKELETAL: Extremities without clubbing, cyanosis. RLE larger compared to LLE. R foot - has redness and edema, incision with some serous drainage. No calf tenderness. NEUROLOGICAL: Awake and alert. Cranial nerves II through XII intact. Motor and sensory grossly within normal limits. Five out of 5 muscle strength in all muscle groups. Normal speech. PSYCH: Calm and cooperative LINE: PIV with no evidence of infection Laboratory Laboratory Tests Test 09/29/16 10:40 White Blood Count 9.1 Red Blood Count 3.74 Hemoglobin 10.0 Hematocrit 30.5 Mean Corpuscular Volume 81.4 Mean Corpuscular Hemoglobin 26.6 Mean Corpuscular Hemoglobin 32.7 Concent Red Cell Distribution Width 16.2 Platelet Count 209 Mean Platelet Volume 9.1 Neutrophils (%) (Auto) 75.1 Lymphocytes (%) (Auto) 16.0 Monocytes (%) (Auto) 5.8 Eosinophils (%) (Auto) 2.7 Basophils (%) (Auto) 0.4 Neutrophils # (Auto) 6.9 Lymphocytes # (Auto) 1.5 Monocytes # (Auto) 0.5 Eosinophils # (Auto) 0.2 Basophils # (Auto) 0.0 CBC Comment DIFF FINAL Differential Comment Sodium Level 144 Potassium Level 4.9 Chloride Level 111 Carbon Dioxide Level 20.9 Anion Gap 12 Blood Urea Nitrogen 54 Creatinine 2.10 Estimat Glomerular Filtration 31 Rate Random Glucose 261 Calcium Level 7.8 Date/Time Procedure Status Source Growth 09/27/16 14:00 Gram Stain - Final Complete Wound Foot 09/27/16 14:00 Wound Culture - Final Complete S. Aureus Mrsa 09/27/16 14:00 Fungal Smear - Final Resulted Wound Foot NO FUNGAL ELEMENTS SEEN. 09/27/16 14:00 Fungal Culture Resulted Wound Foot Pending 09/27/16 14:00 Acid Fast Stain - Final Resulted Wound Foot NO ACID FAST BACILLI SEEN 09/27/16 14:00 Mycobacterial Culture Resulted Wound Foot Pending Result Diagram: 09/29/16 1040 09/29/16 1040 Imaging RADIOLOGY STUDIES/FILMS REVIEWED Liver Ultrasound 09/27/16 0000 Signed Impressions: Service Date/Time: Tuesday, September 27, 2016 15:18 - CONCLUSION: 1. Sonographic findings consistent with cirrhosis. Hepatopedal flow within the portal vein. 2. Splenomegaly. 3. Gallbladder sludge. The gallbladder wall is poorly evaluated due to the decompressed nature of the gallbladder. Adam Wright Jr., MD Bone Scan Nuclear Medicine 09/25/16 0000 Signed Impressions: Service Date/Time: Sunday, September 25, 2016 11:55 - CONCLUSION: 1. Findings suggesting osteomyelitis of the right great toe metatarsal head neck and distal shaft in the proper clinical setting. 2. Abnormality of the right tarsometatarsal joints and subtalar joint likely represent arthritic findings/diabetic osteoarthropathy.. Similar but less prominent findings are also seen on the left. Rosalino Cornejo MD Ankle X-Ray 09/25/16 0000 Signed Impressions: Service Date/Time: Sunday, September 25, 2016 09:27 - CONCLUSION: Scattered cystic and hypertrophic change at the hindfoot. There is soft tissue swelling. José Antonio Wooten MD Chest X-Ray 09/24/16 1248 Signed Impressions: Service Date/Time: Saturday, September 24, 2016 12:54 - CONCLUSION: Normal examination. José Antonio Wooten MD Foot X-Ray 09/24/16 0000 Signed Impressions: Service Date/Time: Saturday, September 24, 2016 12:59 - CONCLUSION: Chronic bony change as described above. There is soft tissue swelling of the foot. José Antonio Wooten MD Assessment and Plan Assessment and Plan IMPRESSION DFI with R foot abscess and osteo 1st MT - S/P partial resection 1st MT - C/S MRSA - paath report pending DM Morbid obesity SINCERE Chronic renal insufficiency likely due to DM nephropathy RECOMMENDATION Continue IV Vanco Await path report Will D/W podiatry where C/S taken If margin (+) osteo, will need Rx for osteo vs, more resection? Follow C/S and path Monitor progress I will follow along with you Thank you for this consultation Discussed Condition With Discussed with patient and D/W Ebony Forrester PA-C, MD Sep 29, 2016 16:50
[2016-09-29 17:14] VITALS: BP 181/91; PULSE 65; RESP 15; TEMP 97.4; O2SAT 96
[2016-09-29 21:01] VITALS: BP 155/74; PULSE 64; RESP 18; TEMP 97.6; O2SAT 97
[2016-09-29] MEDS: ATORVASTATIN 40 MG TAB PO SCH (21:42)
[2016-09-30] VITALS: BP 167/77; PULSE 64; RESP 22; TEMP 98.4; O2SAT 96
[2016-09-30 04:00] VITALS: BP 150/83; PULSE 61; RESP 16; TEMP 98.4; O2SAT 98
[2016-09-30] MEDS ORDERED: CEFEPIME INJ 2,000 MG in SODIUM CHLORIDE 0.9% INJ 100 ML IV SCH (05:00)
[2016-09-30] MEDS: INSULIN ASPART SUPPLEMENTAL SCALE SQ SCH ×4 (05:22→21:52)
[2016-09-30] MEDS: VANCOMYCIN INJ 2,000 MG in SODIUM CHLORID 0.9% 500 ML INJ 500 ML IV SCH (05:25)
[2016-09-30 06:22] LABS: BICARBONATE 21.3 MEQ/L (21.0-32.0); MAGNESIUM 2.5 MG/DL (1.5-2.5); POTASSIUM 4.6 MEQ/L (3.5-5.1)
[2016-09-30 06:23] LABS: AUTOMATED NEUTROPHIL # 5.6 TH/MM3 (1.8-7.7); BASOPHIL % 0.4 % (0.0-2.0); EOSINOPHIL # 0.2 TH/MM3 (0-0.4); EOSINOPHIL % 2.8 % (0.0-4.0); HEMATOCRIT 29.2 % (39.0-51.0); HEMO FLAGS DIFF FINAL; LYMPH % 20.4 % (9.0-44.0); LYMPHOCYTE # 1.6 TH/MM3 (1.0-4.8); MEAN CELL VOLUME 79.8 FL (80.0-100.0); MEAN CORPUSCULAR HEMOGLOBIN 25.5 PG (27.0-34.0); MEAN CORPUSCULAR HGB CONC 31.9 % (32.0-36.0); MONO % 6.5 % (0.0-8.0); NEUT % 69.9 % (16.0-70.0); PLATELET COUNT 210 TH/MM3 (150-450); RED BLOOD COUNT 3.67 MIL/MM3 (4.50-5.90); RED CELL DISTRIBUTION WIDTH 15.4 % (11.6-17.2); WHITE BLOOD COUNT 7.9 TH/MM3 (4.0-11.0)
[2016-09-30 08:00] VITALS: BP 156/82; PULSE 50; RESP 16; TEMP 97.6; O2SAT 96
[2016-09-30] MEDS: SODIUM CHLORIDE 0.9% FLUSH 5 ML FLUSH FLUSH SCH ×2 (08:56→21:51)
[2016-09-30] MEDS: INSULIN DETEMIR 100 UNITS/ML VIAL SQ SCH ×2 (08:58→21:52)
[2016-09-30] MEDS: ALLOPURINOL 300 MG TAB PO SCH (08:59)
[2016-09-30] MEDS: FUROSEMIDE 40 MG TAB PO SCH (08:59)
[2016-09-30] MEDS: CARVEDILOL 12.5 MG TAB PO SCH ×2 (08:59→21:51)
--- NOTE | 2016-09-30 09:12 | PD.POD ---
Subjective Pain score: 2 Remarks more compliant with bedrest, patient has CAM boot. Past Med/Surg/Social History Social History Smoking Status: Former Smoker Objective Vital Signs Vital Signs Date Time Temp Pulse Resp B/P Pulse Ox O2 Delivery O2 Flow Rate FiO2 09/30/16 08:00 97.6 50 16 156/82 96 09/30/16 04:00 98.4 61 16 150/83 98 09/30/16 00:00 98.4 64 22 167/77 96 09/29/16 21:01 97.6 64 18 155/74 97 09/29/16 17:14 97.4 65 15 181/91 96 09/29/16 12:45 97.6 66 16 163/76 94 Coded Allergies: Carvedilol (Verified Allergy, Unknown, Hypotension, 09/24/16) Cipro (Verified Allergy, Unknown, Rash, 09/24/16) Uncoded Allergies: SURGICAL TAPE (Adverse Reaction, Intermediate, 04/23/15) BLISTERS Objective Remarks Right foot ankle swelling and redness with some decrease over all edema. decreased sensation below the ankle, pes planus with no crepitus or instability , right foot incision with serosanguineous drainage, no odor or ischemia Exam-Podiatry Remarks Right foot ankle swelling improved. decreased sensation below the ankle, pes planus with no crepitus or instability, right foot bandage clean dry intact Assessment & Plan A/P Right foot ulcer, possible OM, charcot (early non destructive) SP 1st met resection- I and D- 09-27 Bandaged will be changed per nursing tomorrow. CAM boot is bedside, patient may increase activity, BR and short walking with boot on. Discussion re: SNF/ rehab, will follow pending Bn Bx, no further surgery planned , if margin + perfer not to take more bone for it may cause the foot to be unstable. ID consult reviewed, appreciate. Sign of to Dr Varela, will start care 09-30. Venancio Mason DPM Sep 30, 2016 09:12
[2016-09-30 12:00] VITALS: BP 157/80; PULSE 57; RESP 16; TEMP 97.7; O2SAT 96
--- NOTE | 2016-09-30 13:17 | HHI.PR ---
Subjective Remarks Patient seen and examined, stable no acute issue, afebrile, no chest pain or short of breath, his liver enzyme trending down I discussed with him about this We are waiting on the pathology report to decide on discharge iv antibiotic versus further surgical workup Objective Vitals Vital Signs Date Time Temp Pulse Resp B/P Pulse Ox O2 Delivery O2 Flow Rate FiO2 09/30/16 12:00 97.7 57 16 157/80 96 09/30/16 08:00 97.6 50 16 156/82 96 09/30/16 04:00 98.4 61 16 150/83 98 09/30/16 00:00 98.4 64 22 167/77 96 09/29/16 21:01 97.6 64 18 155/74 97 09/29/16 17:14 97.4 65 15 181/91 96 I/O 09/29/16 09/29/16 09/29/16 09/30/16 09/30/16 09/30/16 07:00 15:00 23:00 07:00 15:00 23:00 Intake Total 1300 ml Output Total 480 ml 1300 ml 500 ml Balance -480 ml 1300 ml -1300 ml -500 ml Intake Oral 1300 ml Output Urine Total 480 ml 1300 ml 500 ml # Voids 5 # Bowel Movements 1 2 Result Diagram: 09/30/16 0544 09/30/16 0544 Objective Remarks GENERAL: This is a well-nourished, morbidly obese BMI 47 well-developed patient , in no apparent distress. SKIN: No rashes, warm and dry HEAD: Atraumatic. Normocephalic. EYES: Pupils equal round and reactive. Extraocular motions intact. No scleral icterus. ENT: Nose without bleeding, or drainage, Airway patent. NECK: Trachea midline. Supple CARDIOVASCULAR: Regular rate and rhythm without murmurs, gallops, or rubs. RESPIRATORY: Fair air entry bilaterally. No wheezes, rales, or rhonchi. GASTROINTESTINAL: Abdomen soft, non-tender, nondistended. Positive bowel sounds MUSCULOSKELETAL: +2 edema, right lower extremity in boot NEUROLOGICAL: Awake and alert. Moves all extremity. 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 Three-phase bone scan was performed which does indicate osteomyelitis of the right distal metatarsal as well as bilateral abnormalities indicating possible underlying Charcot's. Cardiology did give medical clearance for surgery. Patient did undergo surgical intervention with abscess drainage and first metatarsal resection. Culture has indicated MRSA. Awaiting sensitivities. Appreciate ID consultation, awaiting pathology or for further recommendation Right foot cellulitis: Continue Vancomycin IV Type 2 diabetes mellitus with right diabetic foot infection: Continue Accu- Cheks and sliding scale insulin. Patient is no longer using his insulin pump. Acute kidney injury on CKD3: Improving creatinine dropped to 2.1-1.9, with Gentle IVF hydration, monitor BUN and creatinine and avoid all nephrotoxic drugs. Hold SLOANE inhibitor Hypertension: Currently on Norvasc and Coreg Transaminitis: Unknown etiology, Viral hepatitis panel was negative, continue to trend liver enzymes. Liver ultrasound shows cirrhosis, hepatopedal flow within the portal vein. Splenomegaly. Gallbladder sludge. Gallbladder wall is poorly evaluated due to decompressed nature of the gallbladder. GI consulted for recommendations. Indicating likely secondary to steatohepatitis secondary to poorly controlled diabetes but could also be an exacerbation of infection and/or medication. Continue supportive care. DVT prevention: Prior history of right DVT: Status post IVC filter placement Discharge Planning Awaiting pathology Problem Qualifiers (1) Cellulitis: Qualified Code: L03.115 - Cellulitis of right lower extremity Jorge Santacruz MD Sep 30, 2016 13:17
[2016-09-30] MEDS: RESP: ALBUTEROL 2.5 MG/IPRATROPIUM 0.5 MG NEB (PRN) NEB (15:47)
[2016-09-30 16:00] VITALS: BP 165/87; PULSE 58; RESP 16; TEMP 97.8; O2SAT 95
--- NOTE | 2016-09-30 19:13 | HHI.GIFU ---
Subjective Remarks doing well, tolerating food, no complains, Objective Vitals I&O Vital Signs Date Time Temp Pulse Resp B/P Pulse Ox O2 Delivery O2 Flow Rate FiO2 09/30/16 16:00 97.8 58 16 165/87 95 09/30/16 12:00 97.7 57 16 157/80 96 09/30/16 08:00 97.6 50 16 156/82 96 09/30/16 04:00 98.4 61 16 150/83 98 09/30/16 00:00 98.4 64 22 167/77 96 09/29/16 21:01 97.6 64 18 155/74 97 I/O 09/29/16 09/29/16 09/29/16 09/30/16 09/30/16 09/30/16 07:00 15:00 23:00 07:00 15:00 23:00 Intake Total 1300 ml Output Total 480 ml 1300 ml 500 ml 500 ml Balance -480 ml 1300 ml -1300 ml -500 ml -500 ml Intake Oral 1300 ml Output Urine Total 480 ml 1300 ml 500 ml 500 ml # Voids 5 # Bowel Movements 1 2 Laboratory Laboratory Tests Test 09/30/16 05:44 White Blood Count 7.9 Red Blood Count 3.67 Hemoglobin 9.3 Hematocrit 29.2 Mean Corpuscular Volume 79.8 Mean Corpuscular Hemoglobin 25.5 Mean Corpuscular Hemoglobin 31.9 Concent Red Cell Distribution Width 15.4 Platelet Count 210 Mean Platelet Volume 9.8 Neutrophils (%) (Auto) 69.9 Lymphocytes (%) (Auto) 20.4 Monocytes (%) (Auto) 6.5 Eosinophils (%) (Auto) 2.8 Basophils (%) (Auto) 0.4 Neutrophils # (Auto) 5.6 Lymphocytes # (Auto) 1.6 Monocytes # (Auto) 0.5 Eosinophils # (Auto) 0.2 Basophils # (Auto) 0.0 CBC Comment DIFF FINAL Differential Comment Sodium Level 143 Potassium Level 4.6 Chloride Level 112 Carbon Dioxide Level 21.3 Anion Gap 10 Blood Urea Nitrogen 47 Creatinine 1.90 Estimat Glomerular Filtration 35 Rate Random Glucose 227 Calcium Level 8.3 Magnesium Level 2.5 Date/Time Procedure Status Source Growth 09/27/16 14:00 Gram Stain - Final Complete Wound Foot 09/27/16 14:00 Wound Culture - Final Complete S. Aureus Mrsa 09/27/16 14:00 Fungal Smear - Final Resulted Wound Foot NO FUNGAL ELEMENTS SEEN. 3 14:00 Fungal Culture Resulted Wound Foot Pending 3 14:00 Acid Fast Stain - Final Resulted Wound Foot NO ACID FAST BACILLI SEEN 09/27/16 14:00 Mycobacterial Culture Resulted Wound Foot Pending Physical Exam HEENT: normocephalic; atraumatic; no jaundice. Throat is clear. NECK: Neck is supple, CHEST: Chest is clear to auscultation and percussion. CARDIAC: Regular rate and rhythm with no murmur gallop or rubs. ABDOMEN: Obese Soft, nondistended, nontender; no hepatosplenomegaly; bowel sounds are present in all four quadrants. EXTREMITIES: No clubbing, cyanosis, 2+ edema lower extremity SKIN: Normal; no rash; no jaundice. ICE CRUSHER: No focal deficits; alert and oriented times three. Assessment and Plan Plan Elevated liver function tests the trend is down at this point not done in last 2 days Acute kidney injury Anemia Cirrhosis on ultrasound Gallbladder sludge Cellulitis Low albumin probably malnutrition Elevated liver function tests probably multi-factorial probably relating to underlying steatohepatitis secondary to poorly controlled diabetes but this could also have been exacerbated by infection and/or medication Agree with current supportive care Monitor labs, we will check LFTs in am Control diabetes (still not well controlled) liver workup in progress so far negative viral hepatitis Further recommendations shall depend on hospital course Jelani Nelson MD Sep 30, 2016 19:13
[2016-09-30 20:00] VITALS: BP 167/87; PULSE 78; RESP 18; TEMP 96.2; O2SAT 98
[2016-09-30] MEDS: ATORVASTATIN 40 MG TAB PO SCH (21:51)
[2016-10-01] VITALS: BP 162/79; PULSE 54; RESP 18; TEMP 97.9; O2SAT 96
[2016-10-01] MEDS: VANCOMYCIN INJ 2,000 MG in SODIUM CHLORID 0.9% 500 ML INJ 500 ML IV SCH (05:37)
[2016-10-01] MEDS: SODIUM CHLORIDE 0.9% FLUSH 5 ML FLUSH FLUSH PRN (05:38)
[2016-10-01 05:40] LABS: INDIRECT BILIRUBIN 0.2 MG/DL (0.0-0.8); TOTAL BILIRUBIN ADULT 0.3 MG/DL (0.2-1.0)
[2016-10-01] MEDS: INSULIN ASPART SUPPLEMENTAL SCALE SQ SCH ×4 (06:08→21:24)
--- NOTE | 2016-10-01 07:30 | PD.POD ---
Subjective Podiatric Problems Pt doing well, no acute distress Pain score: 2 Past Med/Surg/Social History Social History Smoking Status: Former Smoker Objective Vital Signs Vital Signs Date Time Temp Pulse Resp B/P Pulse Ox O2 Delivery O2 Flow Rate FiO2 10/01/16 00:00 97.9 54 18 162/79 96 09/30/16 20:00 96.2 78 18 167/87 98 09/30/16 16:00 97.8 58 16 165/87 95 09/30/16 12:00 97.7 57 16 157/80 96 09/30/16 08:00 97.6 50 16 156/82 96 Coded Allergies: Carvedilol (Verified Allergy, Unknown, Hypotension, 09/24/16) Cipro (Verified Allergy, Unknown, Rash, 09/24/16) *MDRO Multi-Drug Resistant Organism (Verified Adverse Reaction, Unknown, ) MRSA (foot)-09/27/16 Uncoded Allergies: SURGICAL TAPE (Adverse Reaction, Intermediate, 04/23/15) BLISTERS Other Results Path pending Physical Exam Remarks Right post op visit with dressing removed showed mild maceration, sutures intact , no drainage or signs of active infection No sensation but neurovascularly intact and can wiggle lesser toes right foot Assessment & Plan A/P Right foot s/p I and D/first ray amputation with chronic Charcot arthropathy -Continued limited weight bearing in CAM boot and walker -Path report pending -Once path back primary will begin PICC line and IV antibiotics -Pt to go to SNF -Once daily dressing change per nursing Govind Varela DPM Oct 01, 2016 07:30
[2016-10-01 08:00] VITALS: BP 162/86; PULSE 56; RESP 18; TEMP 98; O2SAT 96
[2016-10-01 09:30] VITALS: PULSE 60
[2016-10-01] MEDS: INSULIN DETEMIR 100 UNITS/ML VIAL SQ SCH ×2 (09:38→21:23)
[2016-10-01] MEDS: ALLOPURINOL 300 MG TAB PO SCH (09:39)
[2016-10-01] MEDS: CARVEDILOL 12.5 MG TAB PO SCH ×2 (09:39→21:24)
[2016-10-01] MEDS: FUROSEMIDE 40 MG TAB PO SCH (09:39)
[2016-10-01] MEDS: SODIUM CHLORIDE 0.9% FLUSH 5 ML FLUSH FLUSH SCH ×2 (09:39→21:22)
[2016-10-01 09:53] LABS: BICARBONATE 21.7 MEQ/L (21.0-32.0)
[2016-10-01 09:54] LABS: POTASSIUM 4.7 MEQ/L (3.5-5.1)
[2016-10-01] MEDS: RESP: ALBUTEROL 2.5 MG/IPRATROPIUM 0.5 MG NEB (PRN) NEB (11:50)
[2016-10-01 12:00] VITALS: BP 153/66; PULSE 50; RESP 18; TEMP 98.2; O2SAT 98
--- NOTE | 2016-10-01 13:28 | HHI.FF ---
Infusion Therapy Location of Infusion Therapy: [facility] Infusion Therapy Order Patient Information Patient Weight 167 kg Diagnosis: Diagnosis Infection R foot, MRSA Coded Allergies: Carvedilol (Verified Allergy, Unknown, Hypotension, 09/24/16) Cipro (Verified Allergy, Unknown, Rash, 09/24/16) *MDRO Multi-Drug Resistant Organism (Verified Adverse Reaction, Unknown, ) MRSA (foot)-09/27/16 Uncoded Allergies: SURGICAL TAPE (Adverse Reaction, Intermediate, 04/23/15) BLISTERS Administer Medication Vancomycin 2 grams IV q 24 hours Stop Treatment: Oct 10, 2016 Additional Information Venous access: PICC Line Additional Instructions [x] Peripheral flush and dressing changes per protocol [x] Implanted port and central electric powerline examiner: * Implanted port: 10 ml Normal Saline followed by 5 ml Heparin 100 units/ml Heparin flush after each use and monthly to maintain. [] May leave port accessed during therapy. [] May leave peripheral site accessed for duration of therapy. [x] If patient has SOB or respiratory distress, check oxygen saturation. If less than 90% or clinical signs of respiratory distress, administer oxygen at 2 L/min. via nasal cannula and notify physician. [x] Anaphylaxis/Reaction orders: * Stop infusion. * Keep IV line open with saline flush. * Notify physician. * Monitor vital signs every 15 minutes until symptoms resolve. * Check Oxygen saturation; Oxygen at 2 L/min. via nasal cannula if less than 90% or clinical signs of respiratory distress. * Administer diphenhydramine (Benadryl) 25 mg IV STAT, (unless patient has received as pre-med). May repeat once, if necessary. * Solu-Cortef 250 mg IVP over 30-60 seconds, use 100 mg vials for each dissolution. * Epinephrine (1mg/1 ml) 0.3 mg subcutaneously or IVP now with any signs of respiratory distress. * Check with physician for new additional pre-med orders if patient is re- challenged or re-treated. [x] May remove PICC line when treatment complete, after confirming with Physician. [x] If the patient is admitted to the hospital, the ED, or transferred via [facility] , complete transfer form including medication reconciliation order sheet. Laboratory Tests Weekly Labs: CBC w/diff, Creatinine, Vancomycin Trough (Labs every Friday) Additional Information Copy of labs to me please Ebony Sheehan MD Oct 01, 2016 13:28
--- NOTE | 2016-10-01 13:33 | HHI.IDPN ---
Subjective Subjective Remarks Notes reviewed No fever Path pending C/S from OR with MRSA Antibiotics Vancomycin Past Medical History DVT diagnosed almost 1 month ago on xarelto CHF Coronary artery disease, with 3 stents placed in 2006 Hyperlipidemia Hypertension Diabetes mellitus on insulin pump Peptic ulcer disease Sleep apnea, he uses a BiPAP machine Past Surgical History Cardiac stents X3 to thin in 2006 Kidney stone removal Right knee arthroplasty 2 Left knee meniscus surgery Great toe amputation Allergies: Coded Allergies: Carvedilol (Verified Allergy, Unknown, Hypotension, 09/24/16) Cipro (Verified Allergy, Unknown, Rash, 09/24/16) *MDRO Multi-Drug Resistant Organism (Verified Adverse Reaction, Unknown, ) MRSA (foot)-09/27/16 Uncoded Allergies: SURGICAL TAPE (Adverse Reaction, Intermediate, 04/23/15) BLISTERS Objective . Vital Signs Date Time Temp Pulse Resp B/P Pulse Ox O2 Delivery O2 Flow Rate FiO2 10/01/16 12:00 98.2 50 18 153/66 98 10/01/16 09:30 60 10/01/16 08:00 98.0 56 18 162/86 96 10/01/16 00:00 97.9 54 18 162/79 96 09/30/16 20:00 96.2 78 18 167/87 98 09/30/16 16:00 97.8 58 16 165/87 95 09/30/16 09/30/16 10/01/16 15:00 23:00 07:00 Intake Total 0 ml 240 ml Output Total 500 ml 500 ml Balance -500 ml -500 ml 240 ml Intake Oral 240 ml IV Total 0 ml 0 ml Output Urine Total 500 ml 500 ml # Voids 3 # Bowel Movements 0 . Laboratory Tests Test 09/30/16 05:44 White Blood Count 7.9 TH/MM3 Red Blood Count 3.67 MIL/MM3 Hemoglobin 9.3 GM/DL Hematocrit 29.2 % Mean Corpuscular Volume 79.8 FL Mean Corpuscular Hemoglobin 25.5 PG Mean Corpuscular Hemoglobin 31.9 % Concent Red Cell Distribution Width 15.4 % Platelet Count 210 TH/MM3 Mean Platelet Volume 9.8 FL Neutrophils (%) (Auto) 69.9 % Lymphocytes (%) (Auto) 20.4 % Monocytes (%) (Auto) 6.5 % Eosinophils (%) (Auto) 2.8 % Basophils (%) (Auto) 0.4 % Neutrophils # (Auto) 5.6 TH/MM3 Lymphocytes # (Auto) 1.6 TH/MM3 Monocytes # (Auto) 0.5 TH/MM3 Eosinophils # (Auto) 0.2 TH/MM3 Basophils # (Auto) 0.0 TH/MM3 CBC Comment DIFF FINAL Differential Comment Laboratory Tests Test 09/30/16 10/01/16 05:44 05:04 Sodium Level 143 MEQ/L 145 MEQ/L Potassium Level 4.6 MEQ/L 4.7 MEQ/L Chloride Level 112 MEQ/L 114 MEQ/L Carbon Dioxide Level 21.3 MEQ/L 21.7 MEQ/L Anion Gap 10 MEQ/L 9 MEQ/L Blood Urea Nitrogen 47 MG/DL 50 MG/DL Creatinine 1.90 MG/DL 1.90 MG/DL Estimat Glomerular Filtration 35 ML/MIN 35 ML/MIN Rate Random Glucose 227 MG/DL 242 MG/DL Calcium Level 8.3 MG/DL 8.2 MG/DL Magnesium Level 2.5 MG/DL Total Bilirubin 0.3 MG/DL Direct Bilirubin 0.1 MG/DL Indirect Bilirubin 0.2 MG/DL Aspartate Amino Transf 30 U/L (AST/SGOT) Alanine Aminotransferase 79 U/L (ALT/SGPT) Alkaline Phosphatase 253 U/L Total Protein 6.6 GM/DL Albumin 1.9 GM/DL Imaging Liver Ultrasound 09/27/16 0000 Signed Impressions: Service Date/Time: Tuesday, September 27, 2016 15:18 - CONCLUSION: 1. Sonographic findings consistent with cirrhosis. Hepatopedal flow within the portal vein. 2. Splenomegaly. 3. Gallbladder sludge. The gallbladder wall is poorly evaluated due to the decompressed nature of the gallbladder. Adam Wright Jr., MD Bone Scan Nuclear Medicine 09/25/16 0000 Signed Impressions: Service Date/Time: Sunday, September 25, 2016 11:55 - CONCLUSION: 1. Findings suggesting osteomyelitis of the right great toe metatarsal head neck and distal shaft in the proper clinical setting. 2. Abnormality of the right tarsometatarsal joints and subtalar joint likely represent arthritic findings/diabetic osteoarthropathy.. Similar but less prominent findings are also seen on the left. Rosalino Cornejo MD Ankle X-Ray 09/25/16 0000 Signed Impressions: Service Date/Time: Sunday, September 25, 2016 09:27 - CONCLUSION: Scattered cystic and hypertrophic change at the hindfoot. There is soft tissue swelling. José Antonio Wooten MD Chest X-Ray 09/24/16 1248 Signed Impressions: Service Date/Time: Saturday, September 24, 2016 12:54 - CONCLUSION: Normal examination. José Antonio Wooten MD Foot X-Ray 09/24/16 0000 Signed Impressions: Service Date/Time: Saturday, September 24, 2016 12:59 - CONCLUSION: Chronic bony change as described above. There is soft tissue swelling of the foot. José Antonio Wooten MD Physical Exam GENERAL: awake and alert, in no apparent distress. SKIN: Cool and dry. No generalized rash. HEENT: [place] conjunctivae. No scleral icterus. No injection or drainage. Moist oral mucosa. NECK: Neck is short and obese. No lymphadenopathy. Supple, nontender, no meningeal signs. CARDIOVASCULAR: Regular rate and rhythm without murmurs, gallops, or rubs. Soft heart sounds. RESPIRATORY: Clear to auscultation. Breath sounds equal bilaterally. No wheezes , rales, or rhonchi. Decreased breath sounds at the bases. GASTROINTESTINAL: Abdomen obese, mildly distended, nontender. Limited exam due to the size of the abdomen. No guarding no rebound. MUSCULOSKELETAL: Extremities without clubbing, cyanosis. RLE larger compared to LLE. R foot - has redness and edema, incision with some serous drainage. No calf tenderness. R foot - incision is dry, no redness NEUROLOGICAL: Non-focal. PSYCH: Calm and cooperative LINE: PIV with no evidence of infection Assessment & Plan Remarks IMPRESSION DFI with R foot abscess and osteo 1st MT - S/P partial resection 1st MT - C/S MRSA - path report pending DM Morbid obesity SINCERE Chronic renal insufficiency likely due to DM nephropathy RECOMMENDATION Continue IV Vanco PICC Await path report - margin clear, 2 weeks IV Abx - if margin (+), 6 weeks IV Abx Had D/W Dr Quintanilla previously, further amputation if (+) osteo, will make foot unstable for ambulation Patient to go to SNF Will need ID follow-up as outpatient if he will need 6 weeks IV Abx Explained plan to patient and OK to D/C once PICC in place Ebony Sheehan MD Oct 01, 2016 13:33
[2016-10-01] MEDS ORDERED: SODIUM CHLORIDE 0.9% FLUSH 10 ML FLUSH IV FLUSH PRN ×2 (15:15)
--- NOTE | 2016-10-01 15:53 | RADHPO ---
EXAM DATE/TIME: 10/01/2016 15:26 [facility] COMPARISON: CHEST SINGLE AP, September 24, 2016, 12:54. INDICATIONS : PICC line MEDICAL HISTORY : Diabetes mellitus type II. SURGICAL HISTORY : None. ENCOUNTER: Subsequent ACUITY: 1 week PAIN SCORE: 0/10 LOCATION: Right chest FINDINGS: A right-sided PICC line has its tip in the superior vena cava. The heart is mildly prominent. Minim al central pulmonary vascular congestion is noted. CONCLUSION: 1. Right-sided PICC line has its tip in good position in the superior vena cava. 2. Minimal central pulmonary vascular congestion. 3. Mild cardiomegaly. Tra White MD on October 01, 2016 at 15:46 Board Certified Radiologist. This report was verified electronically.
[2016-10-01 16:00] VITALS: BP 156/79; PULSE 56; RESP 20; TEMP 98.2; O2SAT 98
--- NOTE | 2016-10-01 17:40 | HHI.PR ---
Subjective Remarks Follow-up on patient with right foot abscess and osteomyelitis. Patient states he's feeling well. He was able to ambulate in the room with PT. He denies any complaints of cough or shortness of breath. He has no complaints of pain. Objective Vitals Vital Signs Date Time Temp Pulse Resp B/P Pulse Ox O2 Delivery O2 Flow Rate FiO2 10/01/16 16:00 98.2 56 20 156/79 98 10/01/16 12:00 98.2 50 18 153/66 98 10/01/16 09:30 60 10/01/16 08:00 98.0 56 18 162/86 96 10/01/16 00:00 97.9 54 18 162/79 96 09/30/16 20:00 96.2 78 18 167/87 98 I/O 09/30/16 09/30/16 09/30/16 10/01/16 10/01/16 10/01/16 07:00 15:00 23:00 07:00 15:00 23:00 Intake Total 0 ml 240 ml 1800 ml Output Total 1300 ml 500 ml 500 ml 1200 ml Balance -1300 ml -500 ml -500 ml 240 ml 600 ml Intake Oral 240 ml 1800 ml IV Total 0 ml 0 ml Output Urine Total 1300 ml 500 ml 500 ml 1200 ml # Voids 3 # Bowel Movements 0 1 Result Diagram: 09/30/16 0544 10/01/16 0504 Objective Remarks GENERAL: Well-developed well-nourished morbidly obese male. Awake and alert. INAD. SKIN: Cool and dry. No generalized rash. HEENT: [place] conjunctivae. No scleral icterus. No injection or drainage. Moist oral mucosa. NECK: Neck is short and obese. No lymphadenopathy. Supple, nontender, no meningeal signs. CARDIOVASCULAR: Regular rate and rhythm without murmurs, gallops, or rubs. Soft heart sounds. RESPIRATORY: Clear to auscultation. Breath sounds equal bilaterally. No wheezes , rales, or rhonchi. Decreased breath sounds at the bases. GASTROINTESTINAL: Abdomen obese, mildly distended, nontender. Limited exam due to the size of the abdomen. No guarding no rebound. MUSCULOSKELETAL: Extremities without clubbing, cyanosis. R foot in CAM boot. No calf tenderness. Per podiatry note, incision with mild maceration, sutures intact, no signs of active infection NEUROLOGICAL: Non-focal. PSYCH: Calm and cooperative LINE: PIV with no evidence of infection Medications and IVs Current Medications Medications (Trade) Dose Ordered Sig/Loulou Route Start Time Stop Time Status Last Admin (NS Flush) 2 ml UNSCH PRN FLUSH 09/24/16 15:30 10/01/16 05:38 (NS Flush) 2 ml BID FLUSH 09/24/16 21:00 10/01/16 09:39 (Tylenol) 650 mg Q4H PRN PO 09/24/16 15:30 (Zofran Inj) 4 mg Q6H PRN IVP 09/24/16 15:30 (Restoril) 15 mg HS PRN PO 09/24/16 15:30 (Tylenol) 650 mg Q6H PRN PO 09/24/16 15:30 (Loving 5-325 Mg) 1 tab Q4H PRN PO 09/24/16 15:30 09/28/16 05:14 (Narcan Inj) 0.4 mg UNSCH PRN IV 09/24/16 15:30 (D50w (Vial) Inj) 25 ml UNSCH PRN IV PUSH 09/24/16 15:30 (Glucagon Inj) 1 mg UNSCH PRN OTHER 09/24/16 15:30 (Apresoline) 25 mg Q8HR PRN PO 09/24/16 15:30 Senna/Docusate Sodium 2 tab 2 tab BID PRN PO 09/24/16 15:30 (Vancomycin Consult Pharmacy) 0 ml @ 0 mls/hr UNSCH OTHER 09/24/16 16:00 (Zyloprim) 300 mg DAILY PO 09/25/16 09:00 10/01/16 09:39 (Norvasc) 10 mg DAILY PO 09/25/16 09:00 10/01/16 09:39 (Lipitor) 80 mg HS PO 09/24/16 21:00 09/30/16 21:51 (Coreg) 12.5 mg BID PO 09/24/16 21:00 10/01/16 09:39 (Lasix) 40 mg DAILY PO 09/25/16 09:00 10/01/16 09:39 Patient Own Medication PT OWN MED:IODOFLEX 0.9% PAD DAILY TOPICAL 09/24/16 16:15 Hold (Vancomycin Inj/ NS 500 ml Inj) 520 ml @ 250 mls/hr Q24H IV 09/29/16 06:00 10/01/16 05:37 Miscellaneous Information SPECIFIC LAB TO BE ... ONCE ONCE XX 10/02/16 05:45 10/02/16 05:46 (Levemir Inj) 15 units Q12HR SQ 09/29/16 10:45 10/01/16 09:38 (NS Flush) See Protocol UNSCH PRN IV FLUSH 10/01/16 15:15 (NS Flush) See Protocol UNSCH PRN IV FLUSH 10/01/16 15:15 (Heparin Central Flush) See Protocol DAILY IVF 10/02/16 09:00 (Heparin Central Flush) See Protocol UNSCH PRN IVF 10/01/16 15:15 (NS Flush) See Protocol UNSCH PRN IVF 10/01/16 15:15 A/P Problem List: (1) Diabetic infection of right foot ICD Code: E11.69 Status: Acute (2) Type 2 diabetes mellitus with right diabetic foot infection ICD Code: E11.628 Status: Chronic (3) Cellulitis ICD Code: L03.90 Status: Acute (4) Acute renal failure superimposed on stage 3 chronic kidney disease ICD Code: N17.9 Status: Acute Assessment and Plan MRSA Osteomyelitis of the right first metatarsal in a Diabetic patient: s/p Zosyn and Vancomycin IV x 1 in ED; Continue with Vancomycin. Three-phase bone scan was performed which does indicate osteomyelitis of the right distal metatarsal as well as bilateral abnormalities indicating possible underlying Charcot's. Cardiology did give medical clearance for surgery. Patient did undergo surgical intervention with abscess drainage and first metatarsal resection. Culture has indicated MRSA with sensitivity to Vancomycin. Appreciate ID consultation, awaiting pathology for further recommendation - if margins clear, 2 weeks IV antibiotics and if margin +, 6 weeks abx. Path report pending. Per Dr. Quintanilla, further amputation would make foot unstable for ambulation. PICC line placement requested by ID. Right foot cellulitis: Continue Vancomycin IV Type 2 diabetes mellitus with right diabetic foot infection: Continue Accu- Cheks and sliding scale insulin. Patient is no longer using his insulin pump. Blood sugars running in the mid to high 200s. On Levemir 15 units twice a day and insulin sliding scale requiring 65 units in the past 24 hours. Will increase Levemir dose to 30mg BID and monitor response. Acute kidney injury on CKD3: Improving creatinine dropped to 2.1-1.9, repeat creatinine today stable at 1.90, this appears to be near his baseline. Gentle IVF hydration, monitor BUN and creatinine and avoid all nephrotoxic drugs. Hold SLOANE inhibitor Hypertension: Currently on Norvasc and Coreg with fair BP control. Will add Clonidine 0.1mg po BID and monitor BP response. Transaminitis: Unknown etiology, Viral hepatitis panel was negative. Liver enzymes continued downward trend, AST 30, ALT 79 and alkaline phosphatase 253. Liver ultrasound shows cirrhosis, hepatopedal flow within the portal vein. Splenomegaly. Gallbladder sludge. Gallbladder wall is poorly evaluated due to decompressed nature of the gallbladder. GI consulted for recommendations. Indicating likely secondary to steatohepatitis secondary to poorly controlled diabetes but could also be an exacerbation of infection and/or medication. Continue supportive care. DVT prevention: Prior history of right DVT: Status post IVC filter placement Written by Eliz Chan PA-C acting as scribe for Dr. Santacruz on 10/01/16 at 11:20. Problem Qualifiers (1) Cellulitis: Qualified Code: L03.115 - Cellulitis of right lower extremity Eliz Chan Oct 01, 2016 17:40 Jorge Santacruz MD Oct 02, 2016 11:33 Jorge Santacruz MD Oct 02, 2016 11:33
[2016-10-01 20:00] VITALS: BP 161/79; PULSE 56; RESP 18; TEMP 98.3; O2SAT 97
--- NOTE | 2016-10-01 20:11 | HHI.GIFU ---
GI Follow-up Note Consult Follow-up Subjective: Patient laying in bed comfortably, no new complaints except foot pain Objective: PHYSICAL EXAMINATION: Vitals signs stable No fever HEENT: Pupils round and reactive to light; normocephalic; atraumatic; no jaundice. Throat is clear. NECK: Neck is supple, no JVD, no lymphadenopathy. CHEST: Chest is clear to auscultation and percussion. CARDIAC: Regular rate and rhythm with no murmur gallop or rubs. ABDOMEN: Soft, nondistended, nontender; no hepatosplenomegaly; bowel sounds are present in all four quadrants. EXTREMITIES: No clubbing, cyanosis, or edema. SKIN: Normal; no rash; no jaundice. 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 Available Data (labs, X- Rays, Procedues) : Last Impressions Chest X-Ray 10/01/16 0000 Signed Impressions: Service Date/Time: Saturday, October 01, 2016 15:26 - CONCLUSION: 1. Right-sided PICC line has its tip in good position in the superior vena cava. 2. Minimal central pulmonary vascular congestion. 3. Mild cardiomegaly. Tra White MD Liver Ultrasound 09/27/16 0000 Signed Impressions: Service Date/Time: Tuesday, September 27, 2016 15:18 - CONCLUSION: 1. Sonographic findings consistent with cirrhosis. Hepatopedal flow within the portal vein. 2. Splenomegaly. 3. Gallbladder sludge. The gallbladder wall is poorly evaluated due to the decompressed nature of the gallbladder. Adam Wright Jr., MD Bone Scan Nuclear Medicine 09/25/16 0000 Signed Impressions: Service Date/Time: Sunday, September 25, 2016 11:55 - CONCLUSION: 1. Findings suggesting osteomyelitis of the right great toe metatarsal head neck and distal shaft in the proper clinical setting. 2. Abnormality of the right tarsometatarsal joints and subtalar joint likely represent arthritic findings/diabetic osteoarthropathy.. Similar but less prominent findings are also seen on the left. Rosalino Cornejo MD Ankle X-Ray 09/25/16 0000 Signed Impressions: Service Date/Time: Sunday, September 25, 2016 09:27 - CONCLUSION: Scattered cystic and hypertrophic change at the hindfoot. There is soft tissue swelling. José Antonio Wooten MD Foot X-Ray 09/24/16 0000 Signed Impressions: Service Date/Time: Saturday, September 24, 2016 12:59 - CONCLUSION: Chronic bony change as described above. There is soft tissue swelling of the foot. José Antonio Wooten MD Laboratory Tests Test 09/30/16 10/01/16 05:44 05:04 White Blood Count 7.9 TH/MM3 Red Blood Count 3.67 MIL/MM3 Hemoglobin 9.3 GM/DL Hematocrit 29.2 % Mean Corpuscular Volume 79.8 FL Mean Corpuscular Hemoglobin 25.5 PG Mean Corpuscular Hemoglobin 31.9 % Concent Red Cell Distribution Width 15.4 % Platelet Count 210 TH/MM3 Mean Platelet Volume 9.8 FL Neutrophils (%) (Auto) 69.9 % Lymphocytes (%) (Auto) 20.4 % Monocytes (%) (Auto) 6.5 % Eosinophils (%) (Auto) 2.8 % Basophils (%) (Auto) 0.4 % Neutrophils # (Auto) 5.6 TH/MM3 Lymphocytes # (Auto) 1.6 TH/MM3 Monocytes # (Auto) 0.5 TH/MM3 Eosinophils # (Auto) 0.2 TH/MM3 Basophils # (Auto) 0.0 TH/MM3 CBC Comment DIFF FINAL Differential Comment Sodium Level 143 MEQ/L 145 MEQ/L Potassium Level 4.6 MEQ/L 4.7 MEQ/L Chloride Level 112 MEQ/L 114 MEQ/L Carbon Dioxide Level 21.3 MEQ/L 21.7 MEQ/L Anion Gap 10 MEQ/L 9 MEQ/L Blood Urea Nitrogen 47 MG/DL 50 MG/DL Creatinine 1.90 MG/DL 1.90 MG/DL Estimat Glomerular Filtration 35 ML/MIN 35 ML/MIN Rate Random Glucose 227 MG/DL 242 MG/DL Calcium Level 8.3 MG/DL 8.2 MG/DL Magnesium Level 2.5 MG/DL Total Bilirubin 0.3 MG/DL Direct Bilirubin 0.1 MG/DL Indirect Bilirubin 0.2 MG/DL Aspartate Amino Transf 30 U/L (AST/SGOT) Alanine Aminotransferase 79 U/L (ALT/SGPT) Alkaline Phosphatase 253 U/L Total Protein 6.6 GM/DL Albumin 1.9 GM/DL Allergies Coded Allergies Type Severity Reaction Last Updated Verified Carvedilol Allergy Unknown Hypotension 09/24/16 Yes Cipro Allergy Unknown Rash 09/24/16 Yes *MDRO Multi-Drug Resistant Organism Adverse Reaction Unknown 09/30/16 Yes Uncoded Allergies Type Severity Reaction Last Updated Verified SURGICAL TAPE Adverse Reaction Intermediate 04/23/15 Active Scripts Medications Dose Route/Sig Days Date Category Omeprazole 40 Mg Cap 40 Mg PO DAILY 09/24/16 Reported Lisinopril 40 Mg Tab 40 Mg PO BID 09/24/16 Reported Furosemide 40 Mg Tab 40 Mg PO DAILY 09/24/16 Reported Fish Oil ([place]-3 Fatty Acids) 1,000 Mg Cap 09/24/16 Reported D 1000 (Cholecalciferol) 1,000 Unit Chew 09/24/16 Reported Angela-Hex 2 (Chlorhexidine Gluconate) 2 % Mikaela 09/24/16 Reported Carvedilol 12.5 Mg Tab 12.5 Mg PO BID 09/24/16 Reported Biolle Gel Tears (Carboxymethylcellulose Sodium) 1 % Gel 09/24/16 Reported Iodoflex Topical (Cadexomer Iodine) 0.9% Pad 1 Pad TOPICAL DAILY 09/24/16 Reported Bacitracin Topical 500 Unit/Gm Oint 1 Applic TOPICAL DAILY 09/24/16 Reported Atorvastatin (Atorvastatin Calcium) 80 Mg Tab 80 Mg PO HS 09/24/16 Reported Amlodipine (Amlodipine Besylate) 10 Mg Tab 10 Mg PO DAILY 09/24/16 Reported Allopurinol 300 Mg Tab 300 Mg PO DAILY 09/24/16 Reported Ventolin Hfa 18 GM Inh (Albuterol Sulfate) 90 Mcg/Act Aer 1 Puff INH Q4H PRN 09/24/16 Reported ASSESSMENT/PLAN: Seen and examined , doing well. LFTs improving anticipating dc to [place] [facility] tomorrow. [facility]. Will sign off. Thank you It was a pleasure seeing Shivam Head. Thank you for this consult. Entered by: Mark Person MD Oct 01, 2016 20:11
[2016-10-01] MEDS: ATORVASTATIN 40 MG TAB PO SCH (21:23)
[2016-10-01] MEDS: cloNIDine HCL 0.1 MG TAB PO SCH (21:24)
[2016-10-02] VITALS: BP 139/62; PULSE 55; RESP 19; TEMP 97.7; O2SAT 96
[2016-10-02 03:51] LABS: IGA SERUM 388 mg/dL (81-463); TISSUE TRANSGLUTAMINASE AB IGG ND U/mL (())
[2016-10-02 04:00] VITALS: BP 133/65; PULSE 53; RESP 19; TEMP 97.8; O2SAT 96
[2016-10-02] MEDS ORDERED: PHARMACY ORDERED LAB XX ONE (05:45)
[2016-10-02] MEDS: INSULIN ASPART SUPPLEMENTAL SCALE SQ SCH ×4 (05:47→20:43)
[2016-10-02] MEDS: SODIUM CHLORIDE 0.9% FLUSH 5 ML FLUSH FLUSH PRN (05:49)
[2016-10-02] MEDS: VANCOMYCIN INJ 2,000 MG in SODIUM CHLORID 0.9% 500 ML INJ 500 ML IV SCH (05:50)
[2016-10-02 05:59] LABS: AUTOMATED NEUTROPHIL # 5.3 TH/MM3 (1.8-7.7); BASOPHIL % 0.5 % (0.0-2.0); EOSINOPHIL # 0.2 TH/MM3 (0-0.4); EOSINOPHIL % 3.3 % (0.0-4.0); HEMATOCRIT 29.9 % (39.0-51.0); HEMO FLAGS DIFF FINAL; LYMPH % 21.4 % (9.0-44.0); LYMPHOCYTE # 1.6 TH/MM3 (1.0-4.8); MEAN CELL VOLUME 79.5 FL (80.0-100.0); MEAN CORPUSCULAR HGB CONC 31.5 % (32.0-36.0); MONO % 5.8 % (0.0-8.0); PLATELET COUNT 213 TH/MM3 (150-450); RED BLOOD COUNT 3.76 MIL/MM3 (4.50-5.90); RED CELL DISTRIBUTION WIDTH 15.1 % (11.6-17.2); WHITE BLOOD COUNT 7.5 TH/MM3 (4.0-11.0)
[2016-10-02 06:10] LABS: CHLORIDE 111 MEQ/L (98-107); POTASSIUM 4.5 MEQ/L (3.5-5.1); SODIUM (NA) 144 MEQ/L (136-145)
[2016-10-02 06:13] LABS: ANION GAP 10 MEQ/L (5-15); BICARBONATE 22.8 MEQ/L (21.0-32.0)
[2016-10-02 06:14] LABS: BLOOD UREA NITROGEN 49 MG/DL (7-18)
[2016-10-02 06:17] LABS: ALT (GPT) 69 U/L (12-78); AST (GOT) 20 U/L (15-37); GLOMERULAR FILTRATION RATE 40 ML/MIN (>89)
[2016-10-02 06:18] LABS: TOTAL BILIRUBIN ADULT 0.2 MG/DL (0.2-1.0)
[2016-10-02 06:19] LABS: ALKALINE PHOSPHATASE 238 U/L (45-117)
[2016-10-02 08:00] VITALS: BP 141/93; PULSE 57; RESP 21; TEMP 95.7; O2SAT 95
[2016-10-02] MEDS: FUROSEMIDE 40 MG TAB PO SCH (08:50)
[2016-10-02] MEDS: cloNIDine HCL 0.1 MG TAB PO SCH ×2 (08:50→20:43)
[2016-10-02] MEDS: ALLOPURINOL 300 MG TAB PO SCH (08:52)
[2016-10-02] MEDS: CARVEDILOL 12.5 MG TAB PO SCH ×2 (08:52→20:44)
[2016-10-02] MEDS: INSULIN DETEMIR 100 UNITS/ML VIAL SQ SCH ×2 (08:52→20:43)
[2016-10-02] MEDS: SODIUM CHLORIDE 0.9% FLUSH 5 ML FLUSH FLUSH SCH ×2 (08:53→20:40)
[2016-10-02 12:00] VITALS: BP_SYST 113; BP_SYST 133; BP_DIAS 61; BP_DIAS 63; PULSE 51; RESP 20; TEMP 96; O2SAT 93; O2SAT 97
[2016-10-02 13:52] LABS: ENDOMYSIAL AB TITER ND (<1:5); MITOCHONDRIAL ABS LESS THAN 20.0 U (()); TISSUE TRANSGLUTAMINASE AB LESS THAN 1 U/mL (())
--- NOTE | 2016-10-02 15:27 | HHI.PR ---
Subjective Remarks Patient seen and examined no acute issue was still waiting on the biopsy result to decide on additional antibiotic Objective Vitals Vital Signs Date Time Temp Pulse Resp B/P Pulse Ox O2 Delivery O2 Flow Rate FiO2 10/02/16 12:00 96.0 51 20 113/61 97 10/02/16 08:00 95.7 57 21 141/93 95 10/02/16 04:00 97.8 53 19 133/65 96 10/02/16 00:00 97.7 55 19 139/62 96 10/01/16 20:00 98.3 56 18 161/79 97 10/01/16 16:00 98.2 56 20 156/79 98 I/O 10/01/16 10/01/16 10/01/16 10/02/16 10/02/16 10/02/16 07:00 15:00 23:00 07:00 15:00 23:00 Intake Total 240 ml 1800 ml 0 ml 0 ml Output Total 1200 ml 850 ml 1425 ml Balance 240 ml 600 ml -850 ml -1425 ml Intake Oral 240 ml 1800 ml IV Total 0 ml 0 ml 0 ml Output Urine Total 1200 ml 850 ml 1425 ml # Voids 3 # Bowel Movements 0 1 Result Diagram: 10/02/16 0535 10/02/16 0535 Objective Remarks GENERAL: This is a well-nourished, morbidly obese BMI 47 well-developed patient , in no apparent distress. SKIN: No rashes, warm and dry HEAD: Atraumatic. Normocephalic. EYES: Pupils equal round and reactive. Extraocular motions intact. No scleral icterus. ENT: Nose without bleeding, or drainage, Airway patent. NECK: Trachea midline. Supple CARDIOVASCULAR: Regular rate and rhythm without murmurs, gallops, or rubs. RESPIRATORY: Fair air entry bilaterally. No wheezes, rales, or rhonchi. GASTROINTESTINAL: Abdomen soft, non-tender, nondistended. Positive bowel sounds MUSCULOSKELETAL: +2 edema, right lower extremity in boot NEUROLOGICAL: Awake and alert. Moves all extremity. 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 Three-phase bone scan was performed which does indicate osteomyelitis of the right distal metatarsal as well as bilateral abnormalities indicating possible underlying Charcot's. Cardiology did give medical clearance for surgery. Patient did undergo surgical intervention with abscess drainage and first metatarsal resection. Culture has indicated MRSA. Awaiting sensitivities. Appreciate ID consultation, awaiting pathology or for further recommendation Right foot cellulitis: Continue Vancomycin IV Type 2 diabetes mellitus with right diabetic foot infection: Continue Accu- Cheks and sliding scale insulin. Patient is no longer using his insulin pump. Acute kidney injury on CKD3: Improving creatinine dropped to 2.1-1.9, with Gentle IVF hydration, monitor BUN and creatinine and avoid all nephrotoxic drugs. Hold SLOANE inhibitor Hypertension: Currently on Norvasc and Coreg Transaminitis: Unknown etiology, Viral hepatitis panel was negative, continue to trend liver enzymes. Liver ultrasound shows cirrhosis, hepatopedal flow within the portal vein. Splenomegaly. Gallbladder sludge. Gallbladder wall is poorly evaluated due to decompressed nature of the gallbladder. GI consulted for recommendations. Indicating likely secondary to steatohepatitis secondary to poorly controlled diabetes but could also be an exacerbation of infection and/or medication. Continue supportive care. DVT prevention: Prior history of right DVT: Status post IVC filter placement Addendum: 0405 Result of the pathology came back negative for acid mellitus, patient cleared by ID to be discharged and vancomycin for until October 10 will discharged today to rehabilitation Discharge Planning Today to SNF Problem Qualifiers (1) Cellulitis: Qualified Code: L03.115 - Cellulitis of right lower extremity Jorge Santacruz MD Oct 02, 2016 15:27
[2016-10-02 16:00] VITALS: BP 157/75; PULSE 55; RESP 20; TEMP 96.1; O2SAT 98
[2016-10-02] MEDS ORDERED: NOVOLOGSS SQ (16:38)
[2016-10-02] MEDS ORDERED: LEVEMIR SQ (16:38)
[2016-10-02] MEDS ORDERED: CLON.1 PO (16:38)
[2016-10-02] MEDS ORDERED: HYDR-3516 PO (16:38)
--- NOTE | 2016-10-02 16:53 | HHI.DS ---
Discharge Summary Admission Date Sep 24, 2016 at 15:03 Discharge Date: Oct 02, 2016 Admitting Diagnosis (1) Diabetic infection of right foot ICD Code: E11.69 (2) Type 2 diabetes mellitus with right diabetic foot infection ICD Code: E11.628 (3) Cellulitis ICD Code: L03.90 (4) Acute renal failure superimposed on stage 3 chronic kidney disease ICD Code: N17.9 Procedures See below Brief History - From Admission 71 year-old male with history of diabetes type 2 insulin-dependent presented to the ED for evaluation of worsening RLE redness/erythema and increasing swelling over the past 7 days. patient is s/p amputated great right toe with poorly healed stump for which he is being followed by [facility]. He is not currently on any antibiotic and gets daily dressing change at home by his . Patient states he had subjective fever at home for which he took some Tylenol this AM. Currently denies any chest pain or shortness of breath, there is no GI bleed. CBC/BMP: 10/02/16 0535 10/02/16 0535 Significant Findings Laboratory Tests Test 09/30/16 10/01/16 10/02/16 05:44 05:04 05:35 Red Blood Count 3.67 MIL/MM3 3.76 MIL/MM3 (4.50-5.90) (4.50-5.90) Hemoglobin 9.3 GM/DL 9.4 GM/DL (13.0-17.0) (13.0-17.0) Hematocrit 29.2 % 29.9 % (39.0-51.0) (39.0-51.0) Mean Corpuscular Volume 79.8 FL 79.5 FL (80.0-100.0) (80.0-100.0) Mean Corpuscular Hemoglobin 25.5 PG 25.0 PG (27.0-34.0) (27.0-34.0) Mean Corpuscular Hemoglobin 31.9 % 31.5 % Concent (32.0-36.0) (32.0-36.0) Chloride Level 112 MEQ/L 114 MEQ/L 111 MEQ/L (98-107) (98-107) (98-107) Blood Urea Nitrogen 47 MG/DL (7-18) 50 MG/DL (7-18) 49 MG/DL (7-18) Creatinine 1.90 MG/DL 1.90 MG/DL 1.70 MG/DL (0.60-1.30) (0.60-1.30) (0.60-1.30) Estimat Glomerular Filtration 35 ML/MIN (>89) 35 ML/MIN (>89) 40 ML/MIN (>89) Rate Random Glucose 227 MG/DL 242 MG/DL 242 MG/DL (74-106) (74-106) (74-106) Calcium Level 8.3 MG/DL 8.2 MG/DL 8.4 MG/DL (8.5-10.1) (8.5-10.1) (8.5-10.1) Alanine Aminotransferase 79 U/L (12-78) (ALT/SGPT) Alkaline Phosphatase 253 U/L 238 U/L (45-117) (45-117) Albumin 1.9 GM/DL 2.0 GM/DL (3.4-5.0) (3.4-5.0) Vancomycin Level Trough 24.5 MCG/ML (5.0-10.0) PE at Discharge GENERAL: Well-developed well-nourished morbidly obese male. Awake and alert. INAD. SKIN: Cool and dry. No generalized rash. HEENT: [place] conjunctivae. No scleral icterus. No injection or drainage. Moist oral mucosa. NECK: Neck is short and obese. No lymphadenopathy. Supple, nontender, no meningeal signs. CARDIOVASCULAR: Regular rate and rhythm without murmurs, gallops, or rubs. Soft heart sounds. RESPIRATORY: Clear to auscultation. Breath sounds equal bilaterally. No wheezes , rales, or rhonchi. Decreased breath sounds at the bases. GASTROINTESTINAL: Abdomen obese, mildly distended, nontender. Limited exam due to the size of the abdomen. No guarding no rebound. MUSCULOSKELETAL: Extremities without clubbing, cyanosis. R foot in CAM boot. No calf tenderness. Per podiatry note, incision with mild maceration, sutures intact, no signs of active infection NEUROLOGICAL: Non-focal. PSYCH: Calm and cooperative LINE: PIV with no evidence of infection Hospital Course 71 years old male admitted for MRSA Osteomyelitis of the right first metatarsal in a Diabetic patient: s/p Zosyn and Vancomycin IV x 1 in ED; Continue with Vancomycin. Threephase bone scan was performed which does indicate osteomyelitis of the right distal metatarsal as well as bilateral abnormalities indicating possible underlying Charcot's. Cardiology did give medical clearance for surgery. Patient did undergo surgical intervention with abscess drainage and first metatarsal resection. Culture has indicated MRSA. Awaiting sensitivities. Appreciate ID consultation, pathology eventually came back negative for OM, ID cleared patient to be on vancomycin daily until October 10 diabetes mellitus with right diabetic foot infection: Continue Accu-Cheks and sliding scale insulin. Patient is no longer using his insulin pump. Acute kidney injury on CKD3 Improving creatinine dropped to 2.1-1.9, with Gentle IVF hydration, monitor BUN and creatinine and avoid all nephrotoxic drugs. Hold SLOANE inhibitor Hypertension on Norvasc and Coreg Transaminitis: Unknown etiology, Viral hepatitis panel was negative, continue to trend liver enzymes. Liver ultrasound shows cirrhosis, hepatopedal flow within the portal vein. Splenomegaly. Gallbladder sludge. Gallbladder wall is poorly evaluated due to decompressed nature of the gallbladder. GI consulted for recommendations. Indicating likely secondary to steatohepatitis secondary to poorly controlled diabetes but could also be an exacerbation of infection and/or medication. Continue supportive care. DVT prevention: Prior history of right DVT: Status post IVC filter placement [id number] encounter performed with the patient on discharge day, as well as physical exam, summary of hospitalization course and postdischarge plan has been D/W the patient. D/W nurse D/W geriatric case manager. Discharge medications reviewed and printed and signed, post discharge follow up visit with PCP and other specialist as well as Brief hospital course and discharge summary has been placed. Pt Condition on Discharge: Fair Discharge Disposition: Discharge to SNF Discharge Time: > 30 minutes Discharge Instructions DIET: Follow Instructions for: Heart Healthy Diet, Diabetic Diet Activities you can perform: See Additionl Instruction Other Activity Instructions: Per podiatry recommendations Follow up Referrals: Infectious Disease - 10 Days with Dede Pacheco MD New Medications: Clonidine (Catapres) 0.1 Mg Tab 0.1 MG PO Q12HR htn #30 TAB Hydrocodone-Acetaminophen (Hydrocodone-Acetaminophen) 5-325 mg Tab 1 TAB PO Q4H PRN PAIN SCALE 3 TO 5 #25 TAB Insulin Aspart Inj (Novolog Inj) 100 Unit/Ml Inj 1 UNITS SQ ACHS SLIDING SCALE dm Days 30 INJECTION Insulin Detemir Inj (Levemir Inj) 1,000 unit/ 10 ML Vial 30 UNITS SQ Q12HR dm Days 30 INJECTION Continued Medications: Albuterol 18 GM Inh (Ventolin Hfa 18 GM Inh) 90 Mcg/Act Aer 1 PUFF INH Q4H PRN SHORTNESS OF BREATH #1 Ref 0 INHALER Allopurinol (Allopurinol) 300 Mg Tab 300 MG PO DAILY Gout #30 Ref 0 TAB Amlodipine (Amlodipine) 10 Mg Tab 10 MG PO DAILY Blood Pressure Management #30 Ref 0 TAB Atorvastatin (Atorvastatin) 80 Mg Tab 80 MG PO HS Cholesterol Management #30 Ref 0 TAB Bacitracin Topical (Bacitracin Topical) 500 Unit/Gm Oint 1 APPLIC TOPICAL DAILY Infection #30 Ref 0 GM Cadexomer Iodine Topical (Iodoflex Topical) 0.9% Pad 1 PAD TOPICAL DAILY EA Carboxymethylcellulose Sodium (Biolle Gel Tears) 1 % Gel Carvedilol (Carvedilol) 12.5 Mg Tab 12.5 MG PO BID #60 Ref 0 TAB Chlorhexidine Gluconate (Angela-Hex 2) 2 % Mikaela Cholecalciferol (D 1000) 1,000 Unit Chew Furosemide (Furosemide) 40 Mg Tab 40 MG PO DAILY #30 Ref 0 TAB Lisinopril (Lisinopril) 40 Mg Tab 40 MG PO BID Blood Pressure Management #30 Ref 0 TAB [place]-3 Fatty Acids (Fish Oil) 1,000 Mg Cap Omeprazole (Omeprazole) 40 Mg Cap 40 MG PO DAILY #30 Ref 0 CAP Jorge Santacruz MD Oct 02, 2016 16:53
[2016-10-02 20:00] VITALS: BP 138/71; PULSE 109; RESP 19; TEMP 97.1; O2SAT 92
[2016-10-02] MEDS: ATORVASTATIN 40 MG TAB PO SCH (20:43)
[2016-10-03] VITALS: BP 129/68; PULSE 57; RESP 20; TEMP 96.8; O2SAT 96
[2016-10-03] MEDS: INSULIN ASPART SUPPLEMENTAL SCALE SQ SCH ×3 (06:31→16:00)
[2016-10-03 08:00] VITALS: BP 139/69; PULSE 53; RESP 20; TEMP 96.8; O2SAT 98
[2016-10-03] MEDS: ALLOPURINOL 300 MG TAB PO SCH (08:26)
[2016-10-03] MEDS: cloNIDine HCL 0.1 MG TAB PO SCH (08:26)
[2016-10-03] MEDS: SODIUM CHLORIDE 0.9% FLUSH 5 ML FLUSH FLUSH SCH (08:27)
[2016-10-03] MEDS: INSULIN DETEMIR 100 UNITS/ML VIAL SQ SCH (08:27)
[2016-10-03] MEDS: CARVEDILOL 12.5 MG TAB PO SCH (08:27)
[2016-10-03] MEDS: FUROSEMIDE 40 MG TAB PO SCH (08:27)
[2016-10-03] MEDS ORDERED: VANCOMYCIN TROUGH XX ONE (12:00)
--- NOTE | 2016-10-03 14:05 | HHI.PR ---
Subjective Remarks Follow up osteomyelitis. Patient scheduled to go to SNF this afternoon. No complaints at this time. Objective Vitals Vital Signs Date Time Temp Pulse Resp B/P Pulse Ox O2 Delivery O2 Flow Rate FiO2 10/03/16 08:00 96.8 53 20 139/69 98 10/03/16 00:00 96.8 57 20 129/68 96 10/02/16 20:00 97.1 109 19 138/71 92 10/02/16 16:00 96.1 55 20 157/75 98 I/O 10/02/16 10/02/16 10/02/16 10/03/16 10/03/16 10/03/16 07:00 15:00 23:00 07:00 15:00 23:00 Intake Total 0 ml 1000 ml 120 ml 60 ml Output Total 1425 ml 1000 ml 400 ml 450 ml Balance -1425 ml 0 ml -280 ml -390 ml Intake Oral 1000 ml 120 ml 60 ml IV Total 0 ml Output Urine Total 1425 ml 1000 ml 400 ml 450 ml # Bowel Movements 0 0 0 Result Diagram: 10/02/16 0535 10/03/16 1145 Imaging Last Impressions Chest X-Ray 10/01/16 0000 Signed Impressions: Service Date/Time: Saturday, October 01, 2016 15:26 - CONCLUSION: 1. Right-sided PICC line has its tip in good position in the superior vena cava. 2. Minimal central pulmonary vascular congestion. 3. Mild cardiomegaly. Tra White MD Liver Ultrasound 09/27/16 0000 Signed Impressions: Service Date/Time: Tuesday, September 27, 2016 15:18 - CONCLUSION: 1. Sonographic findings consistent with cirrhosis. Hepatopedal flow within the portal vein. 2. Splenomegaly. 3. Gallbladder sludge. The gallbladder wall is poorly evaluated due to the decompressed nature of the gallbladder. Adam Wright Jr., MD Bone Scan Nuclear Medicine 09/25/16 0000 Signed Impressions: Service Date/Time: Sunday, September 25, 2016 11:55 - CONCLUSION: 1. Findings suggesting osteomyelitis of the right great toe metatarsal head neck and distal shaft in the proper clinical setting. 2. Abnormality of the right tarsometatarsal joints and subtalar joint likely represent arthritic findings/diabetic osteoarthropathy.. Similar but less prominent findings are also seen on the left. Rosalino Cornejo MD Ankle X-Ray 09/25/16 0000 Signed Impressions: Service Date/Time: Sunday, September 25, 2016 09:27 - CONCLUSION: Scattered cystic and hypertrophic change at the hindfoot. There is soft tissue swelling. José Antonio Wooten MD Foot X-Ray 09/24/16 0000 Signed Impressions: Service Date/Time: Saturday, September 24, 2016 12:59 - CONCLUSION: Chronic bony change as described above. There is soft tissue swelling of the foot. José Antonio Wooten MD Objective Remarks General: Morbidly obese male in no acute distress. Heart: Regular rate and rhythm. No murmur. Lungs: Clear to auscultation bilaterally. No wheezes, rales, or rhonchi. Breathing is nonlabored. Abdomen: Soft, nontender, nondistended. Extremities: Right foot in a walking boot. Left foot in a postop shoe. Psych: Alert and oriented. 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 MRSA osteomyelitis, right first metatarsal: Continue antibiotics. Status post surgical intervention with abscess drainage and first metatarsal resection. Cleared for discharge by podiatry. Appreciate infectious disease recommendations. 2. Diabetes mellitus type 2 with right foot diabetic infection: Monitor Accu- Cheks and cover with sliding scale insulin. Patient would like to restart use of his insulin pump. 3. Acute kidney injury superimposed on chronic kidney disease stage III: Improved. 4. Hypertension: Continue Norvasc, Coreg. 5. Elevated LFTs: Uncertain etiology. Liver ultrasound shows cirrhosis, splenomegaly, gallbladder sludge. Appreciate GI recommendations. Continue supportive care. 6. DVT prophylaxis: Patient does have history of DVT and has IVC filter in place. Discharge Planning Discharge to SNF today. Arrangements had not been made yesterday afternoon and patient received authorization for SNF placement today. Problem Qualifiers (1) Cellulitis: Qualified Code: L03.115 - Cellulitis of right lower extremity Sabino Leo MD Oct 03, 2016 14:05
[2016-10-03] MEDS ORDERED: VANCOMYCIN INJ 1,500 MG in SODIUM CHLORID 0.9% 500 ML INJ 500 ML IV SCH (16:00)
== END 2016-10-03 17:23 | DRG 629 ==
LOC: PHED 12:18 → PHEDA 15:03 → PH3A 17:11
PROVIDERS: ADMIT Family Medicine; ATTEND Family Medicine
PROC: 0J9Q0ZX Drainage of Right Foot Subcutaneous Tissue and Fascia, Open Approach, Diagnostic (ICD-10-PCS; 2016-09-27)
PROC: 0QBN0ZZ Excision of Right Metatarsal, Open Approach (ICD-10-PCS; principal; 2016-09-27 12:32)
PROC: 02HV33Z Insertion of Infusion Device into Superior Vena Cava, Percutaneous Approach (ICD-10-PCS; 2016-10-01)
DX: E11.69 Type 2 diabetes mellitus with other specified complication (principal); L03.115 Cellulitis of right lower limb; N17.9 Acute kidney failure, unspecified; E11.610 Type 2 diabetes mellitus with diabetic neuropathic arthropathy; E11.21 Type 2 diabetes mellitus with diabetic nephropathy; Z68.42 Body mass index [BMI] 45.0-49.9, adult; L02.611 Cutaneous abscess of right foot; E11.621 Type 2 diabetes mellitus with foot ulcer; E11.22 Type 2 diabetes mellitus with diabetic chronic kidney disease; I50.9 Heart failure, unspecified; B95.62 Methicillin resistant Staphylococcus aureus infection as the cause of diseases classified elsewhere; K74.60 Unspecified cirrhosis of liver; E66.01 Morbid (severe) obesity due to excess calories; E78.5 Hyperlipidemia, unspecified; E11.65 Type 2 diabetes mellitus with hyperglycemia; R16.1 Splenomegaly, not elsewhere classified; K75.81 Nonalcoholic steatohepatitis (NASH); I25.10 Atherosclerotic heart disease of native coronary artery without angina pectoris; R74.0 Nonspecific elevation of levels of transaminase and lactic acid dehydrogenase [LDH]; M19.90 Unspecified osteoarthritis, unspecified site; Z96.653 Presence of artificial knee joint, bilateral; Z96.41 Presence of insulin pump (external) (internal); N18.3 Chronic kidney disease, stage 3 (moderate); I12.9 Hypertensive chronic kidney disease with stage 1 through stage 4 chronic kidney disease, or unspecified chronic kidney disease; G47.33 Obstructive sleep apnea (adult) (pediatric); D64.9 Anemia, unspecified; Z79.4 Long term (current) use of insulin; Z89.411 Acquired absence of right great toe; Z86.73 Personal history of transient ischemic attack (TIA), and cerebral infarction without residual deficits; Z87.891 Personal history of nicotine dependence; Z86.718 Personal history of other venous thrombosis and embolism; Z87.11 Personal history of peptic ulcer disease; Z95.5 Presence of coronary angioplasty implant and graft; Z87.442 Personal history of urinary calculi
CPT/HCPCS: 36569; 71010; 73610; 73630; 76705; 76937; 78320; 78399; 80048; 80053; 80074; 80076; 80202; 81001; 82105; 82140; 82150; 82248; 82390; 82565; 82728; 82784; 82947; 82948; 83516; 83520; 83540; 83605; 83690; 83735; 85025; 85652; 86038; 86256; 86403; 87015; 87040; 87070; 87102; 87116; 87147; 87176; 87186; 87205; 87206; 88304; 88307; 88311; 93005; 93306; 94640; 94664; 96365; A9503; J0692; J0696; J1100; J1642; J1815; J2250; J2405; J2543; J3010; J3370; J7030; J7040; J7050; L2114